=== PATIENT | male | born 1955 | race Caucasian/White ===

== ENCOUNTER 2016-07-21 22:57 | Inpatient (IN) | payer MEDICAID ==
[~2016-07-21] VITALS: Ht 177.8 cm; Wt 123.1 kg
[~2016-07-21 22:57] MED LIST: ACET250T3 PO; ACET325T49 PO; ACET650S15 RC; ALB0.5V IH; AMLO10TA2 PO; ASP325TEC PO; AZIT250T5 PO; BNZT2T PO; BUDE0.5A IH; BUDE10.2 IH; CEFU250T80 PO; CHOL10003 PO; CLON0.5T3 PO; CLOZAPINE PO; CYCL10TA9 PO; DEXL60CA PO; DIPH25CA6 PO; ENOX40DI8 SQ; FINA5TAB6 PO; FLUT1DIS27 IH; FURO40TA4 PO; GUAI600T59 PO; IPRA3AMP IH; LORA10TA7 PO; MAGN400O7 PO; MELA3TAB PO; MELO-195 PO; MELO15TA39 PO; METO-333 PO; METO-354 PO; MUCOMYST 20% IH; PALI234D IM; PANT40TA3 PO; POLY119P5 PO; POTA10TA10 PO; POTA20TA15 PO; PRD10T PO; QUET200T57 PO; ROFL500T3 PO; RT-ALBUINH IH; SENN1TAB6 PO; SIMV20TA3 PO; TAMS0.4C2 PO; TORS20TA3 PO; VITA1CAP PO
[2016-07-22] VITALS (46 sets, daily range): BP systolic 80–173; BP diastolic 53–97
--- OUTSIDE RECORDS SUMMARY | 2016-07-22 00:45 | XMS REPORT | Continuity of Care Document ---
Author Author [facility] Organization [facility] Address Unknown Phone Unavailable Care Team Providers Care Data Entry Representative Name Role Phone SONALI JAIMES MD PCP Insurance Providers Payer Name Policy Number Subscriber Name Relationship [facility] [id number] Rafael Bingham 18 Self / Same As Patient Advance Directives Directive Response Recorded Date/Time Advance Directives No 09/11/15 4:47pm Health Care Power of Endless Track Vehicle Mechanic No 09/11/15 4:47pm Organ Donor No 09/11/15 4:47pm Problems Active Problems Medical Problem Onset Date Status Pneumonia Unknown Acute Medications Current Home Medications Medication Dose Units Route Directions Days/Qty Instructions Start Date Roflumilast 500 Mcg 500 Mcg Oral Bedtime 01/04/12 Finasteride 5 Mg 5 Mg Oral Bedtime 09/11/15 Tamsulosin Hcl 0.4 Mg 0.4 Mg Oral Bedtime 09/11/15 Ipratropium/Albuterol Sulfate (Duoneb) 3 Ml 3 Ml Inhalation Four Times Daily 09/11/15 Clonazepam 0.5 Mg 0.5 Mg Oral Bedtime 09/11/15 Melatonin 3 Mg 3 Mg Oral Bedtime 09/11/15 Meloxicam 15 Mg 15 Mg Oral Bedtime 09/11/15 Pantoprazole Sodium 40 Mg 40 Mg Oral Bedtime 09/11/15 Paliperidone Palmitate 234 Mg/1.5 Ml 234 Mg Intramusc Monthly Sennosides/Docusate Sodium 1 Each 1 Tab Oral Bedtime 09/11/15 Quetiapine Fumarate 200 Mg 200 Mg Oral Twice A Day 09/11/15 Budesonide/Formoterol Fumarate 10.2 Gm 2 Puff Inhalation Twice A Day 09/11/15 Torsemide 20 Mg 20 Mg Oral Daily 09/11/15 Cholecalciferol (Vitamin D3) 1,000 Unit 1,000 Unit Oral Bedtime Potassium Chloride 10 Meq 20 Meq Oral Bedtime TAKES 2 (10 MEQ) TABLETS 09/12/15 Simvastatin 20 Mg 20 Mg Oral Bedtime 09/12/15 Loratadine 10 Mg 10 Mg Oral Bedtime 09/12/15 Diphenhydramine Hcl 25 Mg 25 Mg Oral Bedtime 09/12/15 Amlodipine Besylate 10 Mg 10 Mg Oral Daily 09/12/15 Albuterol Sulfate 8.5 Gm 2 Puff Inhalation Every 6 Hours as needed for Shortness Of Breath 09/12/15 Prednisone 10 Mg 60 Mg Oral Daily 42 Take 6 tabs(60mg)daily, decrease by 1 tab(10mg) every other day. 09/13/15 Past Home Medications Medication Directions Ordered Status [Clozapine] , 800 Mg Oral Daily 01/04/12 Discontinued Simvastatin 20 Mg Tablet, 20 Mg Oral Daily 01/04/12 Discontinued Potassium Chloride 20 Meq Tab.prt.sr, 20 Meq Oral Daily 01/04/12 Discontinued Cyclobenzaprine Hcl (Flexeril) 10 Mg Tablet, 5 Mg Oral Three Times A Day 05/06 Discontinued Meloxicam (Mobic) 15 Mg Tablet, 15 Mg Oral Daily 01/04/12 Discontinued Torsemide 20 Mg Tablet, 20 Mg Oral Daily 01/04/12 Discontinued Loratadine 10 Mg Tablet, 10 Mg Oral Daily 01/04/12 Discontinued Clonazepam 0.5 Mg Tablet, 0.5 Mg Oral Three Times A Day 01/04/12 Discontinued Dexlansoprazole 60 Mg Alessandro., 60 Mg Oral Daily 01/04/12 Discontinued Benztropine Mesylate 2 Mg Tablet, 2 Mg Oral Twice A Day 01/04/12 Discontinued Aspirin 325 Mg Tabec, 325 Mg Oral Daily 01/04/12 Discontinued Salmeterol Xinafoate/Fluticasone 1 Disk Inhp, 1 Puff Inhalation Twice A Day 01/04/12 Discontinued Metoclopramide Hcl 10 Mg Tab, 10 Mg Oral Daily 01/04/12 Discontinued Acetazolamide 250 Mg Tablet, 250 Mg Oral Daily 09/11/15 Discontinued Cefuroxime Axetil 250 Mg Tablet, 250 Mg Oral Twice A Day 09/11/15 Discontinued Metoprolol Tartrate 25 Mg Tablet, 12.5 Mg Oral Twice A Day 09/11/15 Discontinued Polyethylene Glycol 3350 119 Gm Powder, 17 Gm Oral Three Times A Day as needed for Constipation 09/11/15 Discontinued Guaifenesin 600 Mg Tab.er.12h, 600 Mg Oral Twice A Day 09/11/15 Discontinued [Mucomyst 20%] , 1 Vial Inhalation Twice A Day 09/11/15 Discontinued Budesonide 0.5 Mg/2 Ml Ampul.neb, 0.5 Mg Inhalation Twice A Day 09/11/15 Discontinued Vitamin B Complex 1 Each Capsule, 1 Cap Oral Daily 09/11/15 Discontinued Furosemide 40 Mg Tablet, 40 Mg Oral Daily 09/11/15 Discontinued Enoxaparin Sodium 40 Mg/0.4 Ml Syringe, 40 Mg Sub-Q Daily 09/11/15 Discontinued Azithromycin 250 Mg Tablet, 250 Mg Oral As Directed 09/11/15 Discontinued Albuterol Sulfate 2.5 Mg/0.5 Ml Vial.neb, 2.5 Mg Inhalation Every 4HRS as needed for Shortness Of Breath 09/11/15 Discontinued Acetaminophen 325 Mg Tablet, 650 Mg Oral Every 4HRS as needed for Pain Or Fever 09/11/15 Discontinued Acetaminophen 650 Mg Supp.rect, 650 Mg Rectal Every 4HRS as needed for Pain Or Fever 09/11/15 Discontinued Magnesium Hydroxide 400 Mg/5 Ml Oral.susp, 30 Ml Oral Daily as needed for Constipation 09/11/15 Discontinued Torsemide 20 Mg Tablet, 20 Mg Oral Daily 09/12/15 Discontinued Social History Social History Problem Response Recorded Date/Time Recent Foreign Travel No 02/19/2016 9:29am Hospital Discharge Instructions No hospital discharge instructions. Plan of Care Prescriptions See Medication Section Functional Status No functional status results. Allergies, Adverse Reactions, Alerts No known allergies. Immunizations No immunization records. Vital Signs No known vital signs results. Results No known relevant diagnostic tests, laboratory data and/or discharge summary. Procedures No known history of procedures. Encounters Encounter Location Arrival/Admit Date Discharge/Depart Date Attending Provider Discharged Rec[facility]ring [facility] 03/02/16 10:49am 12:00pm MARIO JAMESON MD
[2016-07-22] MEDS ORDERED: PROPOFOL DRIP (ICU) 100 ML IV ONE (01:04)
[2016-07-22] MEDS ORDERED: fentaNYL INJECTION 100 MCG/2 ML AMP ONE (01:05)
[2016-07-22] MEDS ORDERED: NS IV 500 ML 500 ML ONE (01:55)
[2016-07-22] MEDS ORDERED: NS IV 500 ML 500 ML IV SCH (02:00)
[2016-07-22] MEDS: PANTOPRAZOLE 40 MG/10 ML (PROTONIX) VIAL IV SCH ×3 (02:11→20:46)
[2016-07-22] MEDS: inSUlin (REGULAR) HUMAN 1 UNIT/0.01 ML (CHARGE PER UNIT) SC SCH ×5 (04:00→20:00)
[2016-07-22] MEDS: fentaNYL INJECTION 100 MCG/2 ML AMP IV PRN (04:10)
[2016-07-22 04:37] LABS: BASOPHILS % (AUTO) 0 % (0-10); EOSINOPHILS % (AUTO) 0 % (0-10); LYMPHOCYTES # (AUTO) 0.4 X 10^3 (1.0-4.0); LYMPHOCYTES % (AUTO) 4 % (12-44); MEAN CORPUSCULAR HEMOGLOBIN 31 PG (25-34); MEAN CORPUSCULAR HGB CONC 33 G/DL (32-36); MEAN CORPUSCULAR VOLUME 93 FL (80-99); MEAN PLATELET VOLUME 10.5 FL (7.4-10.4); MONOCYTES # (AUTO) 0.2 X 10^3 (0.0-1.0); MONOCYTES % (AUTO) 3 % (0-12); NEUTROPHILS # (AUTO) 7.9 X 10^3 (1.8-7.8); NEUTROPHILS % (AUTO) 93 % (42-75); PLATELET COUNT 194 10^3/uL (130-400); RED BLOOD COUNT 5.35 10^6/uL (4.35-5.85); RED CELL DISTRIBUTION WIDTH 15.3 % (10.0-14.5); WHITE BLOOD COUNT 8.5 10^3/uL (4.3-11.0)
[2016-07-22 04:56] LABS: ANISOCYTOSIS SLIGHT; BAND NEUTROPHILS 1 %; BASOPHILS % (MANUAL) 0 %; EOSINOPHILS % (MANUAL) 0 %; LYMPHOCYTES % (MANUAL) 3 %; NEUTROPHILS % (MANUAL) 92 %; POLYCHROMASIA SLIGHT; REACTIVE LYMPHOCYTES 2 %
[2016-07-22 05:07] LABS: ANION GAP 13 MMOL/L (5-14); BLOOD UREA NITROGEN 13 MG/DL (7-18); BUN/CREATININE RATIO 13; CALCIUM 8.8 MG/DL (8.5-10.1); CARBON DIOXIDE 31 MMOL/L (21-32); CHLORIDE 94 MMOL/L (98-107); CREATININE SERUM 0.97 MG/DL (0.60-1.30); GFR ESTIMATED > 60; GLUCOSE 124 MG/DL (70-105); MAGNESIUM 2.3 MG/DL (1.8-2.4); PHOSPHORUS 5.4 MG/DL (2.3-4.7); POTASSIUM 4.2 MMOL/L (3.6-5.0); SODIUM 138 MMOL/L (135-145)
[2016-07-22 05:09] LABS: ABG HCO3 36 MMOL/L (23-27); ABG OXYGEN SATURATION 96 % (94-100); ABG PO2 86 MMHG (79-93); ABG TCO2 38.5 MMOL/L (21.0-31.0)
[2016-07-22 05:10] LABS: ALLENS TEST YES-POS; PATIENT TEMP 100.2
[2016-07-22 05:13] LABS: ABG PCO2 75 MMHG (35-45); ABG PH 7.31 (7.37-7.43)
[2016-07-22] MEDS: MAGNESIUM 1 GM/100 ML IVPB 100 ML IV SCH (05:33)
[2016-07-22] MEDS: POTASSIUM CL 10MEQ/50ML IVPB 50 ML IV SCH (05:33)
[2016-07-22] MEDS: KCL 20 MEQ TAB (K-DUR) PO SCH (05:33)
[2016-07-22] MEDS: CATHETER FLUSH 10 ML SYR IV SCH ×3 (05:41→22:26)
--- NOTE | 2016-07-22 06:14 | Pulmonary Progress Note ---
Exam Exam Vital Signs Date Time Temp Pulse Resp B/P Pulse Ox O2 Delivery O2 Flow Rate FiO2 07/22/16 05:42 115/66 07/22/16 05:22 82 25 93 100 07/22/16 03:45 81 17 102/59 89 Mechanical Ventilator 100.00 07/22/16 03:30 79 13 95/56 89 Mechanical Ventilator 100.00 07/22/16 03:15 79 17 95/58 89 Mechanical Ventilator 100.00 07/22/16 03:00 81 19 97/56 89 Mechanical Ventilator 100.00 07/22/16 02:45 86 14 102/59 89 Mechanical Ventilator 100.00 07/22/16 02:30 85 9 100/53 89 Mechanical Ventilator 100.00 07/22/16 02:15 84 18 105/64 88 Mechanical Ventilator 100.00 07/22/16 02:15 82 18 88 100 07/22/16 02:00 89 29 122/85 87 Mechanical Ventilator 100.00 07/22/16 01:45 79 17 80/55 93 Mechanical Ventilator 100.00 07/22/16 01:30 87 18 86/55 89 Mechanical Ventilator 100.00 07/22/16 01:19 134/75 07/22/16 01:15 103 24 134/75 88 Mechanical Ventilator 100.00 07/22/16 01:10 104 15 89 100 07/22/16 01:00 98 07/22/16 01:00 98 13 139/77 96 Mechanical Ventilator 100.00 07/22/16 00:47 108 10 173/97 90 Mechanical Ventilator 100.00 07/22/16 00:47 108 07/22/16 00:45 89 100.00 General Appearance: WD/WN Moderate Distress Other (sedated on ventilator ) HEENT: PERRL/EOMI TMs Normal Normal ENT Inspection Pharynx Normal Neck: Full Range of Motion Normal Inspection Non Tender Respiratory: No Accessory Muscle Use No Respiratory Distress Decreased Breath Sounds Cardiovascular: Regular Rate, Rhythm Other (edema bilaterally) Gastrointestinal: normal bowel sounds non tender soft no organomegaly Neurologic/Psychiatric: Other (sedated on vent) Skin: Normal Color Lymphatic: No Adenopathy Results Lab Laboratory Tests 07/22/16 04:00 Assessment/Plan Assessment/Plan Acute on chronic respiratory failure requiring ventilator -Increase MV and PEEP to 12 -repeat ABG in 45min -SVNs duoneb and pulmicort bilateral infiltrates probably aspiration pneumonia vs pulmonary edema -Check BNP -Menjivar cultures -start Zosyn Severe COPD/emphysema -SVNs -solumedrol tobacco dependance -education Obesity with probable JEN PT's prognosis is guarded at this time Clinical Quality Measures DVT/VTE Risk/Contraindication: Risk Factor Score Per Nursin RFS Level Per Nursing on Admit: 4+=Very High AMAIRANI LOMBARDO DO Jul 22, 2016 06:14
[2016-07-22] MEDS ORDERED: PIPERACILLIN/TAZO 4.5 GM VIAL (ZOSYN) IV ONE ×3 (06:33→15:07)
[2016-07-22] MEDS ORDERED: NS (IVPB) 100 ML ONE ×2 (06:34→15:08)
--- NOTE | 2016-07-22 06:36 | Pulmonary Consultation ---
History of Present Illness History of Present Illness Date of Consultation 07/22/16 06:34 Date of Admission History of Present Illness 60 yo with hx of severe COPD and current tobacco use and multiple hospitalizations presented secondary to worsening SOB. He was intubated in ED and transferred to ICU for close monitoring. Unable to obtain ROS secondary to MS. I am consulted for pulmonary management. Allergies and Home Medications Allergies Coded Allergies: No Known Drug Allergies (Unverified , 09/15/10) Home Medications Albuterol Sulfate 8.5 Gm Hfa.aer.ad, 2 PUFF IH Q6H PRN for SHORTNESS OF BREATH, (Reported) Amlodipine Besylate 10 Mg Tablet, 10 MG PO DAILY, (Reported) Cholecalciferol (Vitamin D3) 1,000 Unit Tablet, 1,000 UNIT PO HS, (Reported) Clonazepam 0.5 Mg Tablet, 0.5 MG PO BID PRN for ANXIETY, #30 Prescribed by: SILVIO WALSH on 08/04/16 09 Diphenhydramine HCl 25 Mg Capsule, 25 MG PO HS, (Reported) Finasteride 5 Mg Tablet, 5 MG PO HS, (Reported) Fluticasone Propionate 16 Gm [place].susp, 1 SPRAY NS BID for 14 Days, (Reported) FILLED 07/20/16 #16ML FOR A 14 DAY THERAPY Ipratropium/Albuterol Sulfate 3 Ml Ampul.neb, 3 ML INH RTQ2H PRN for SOA for 30 Days Prescribed by: SILVIO WALSH on 08/04/16 09 Lorazepam 2 Mg/1 Ml Oral.conc, 1 MG PO Q3HR, #30 Prescribed by: SILVIO WALSH on 08/04/1647 Melatonin 3 Mg Tablet, 3 MG PO HS, (Reported) Meloxicam 15 Mg Tablet, 15 MG PO HS, (Reported) Morphine Sulfate 100 Mg/5 Ml Solution, 5 MG PO Q2H PRN for PAIN, #30 Prescribed by: SILVIO WALSH on 08/04/16 09 Paliperidone Palmitate 234 Mg/1.5 Ml Syringe, 234 MG IM MONTHLY, (Reported) Pantoprazole Sodium 40 Mg Tablet.dr, 40 MG PO HS, (Reported) Potassium Chloride 10 Meq Tablet.er, 20 MEQ PO HS, (Reported) TAKES 2 (10 MEQ) TABLETS Prednisone 20 Mg Tab, 20 MG PO DAILY for 30 Days Prescribed by: SILVIO WALSH on 08/04/16 0947 Quetiapine Fumarate 200 Mg Tablet, 200 MG PO BID@1200,2100, (Reported) Roflumilast 500 Mcg Tablet, 500 MCG PO HS, (Reported) Sennosides/Docusate Sodium 1 Each Tablet, 1 TAB PO BID, (Reported) Simvastatin 20 Mg Tablet, 20 MG PO HS, (Reported) Tamsulosin HCl 0.4 Mg Cap.er.24h, 0.4 MG PO HS, (Reported) Torsemide 20 Mg Tablet, 20 MG PO DAILY, (Reported) Past Seklemj-Vaxxqs-Dzokgf Hx Patient Social History Smoking Status: Current Everyday Smoker Type Used: Cigarettes Recent Foreign Travel: No Contact w/Someone Who Travel: No Recent Infectious Disease Expo: No Immunizations Up To Date Date of Pneumonia Vaccine: Mar 14, 2009 Respiratory Hx Respiratory Disorders: Yes (COPD) Respiratory Disorders: COPD Cardiovascular Hx Cardiac Disorders: Yes Cardiac Disorders: High Cholesterol, Hypertension Neurological Hx Neurological Disorders: Yes Neurological Disorders: Developmental Disorder Genitourinary Hx Genitourinary Disorders: Yes Genitourinary Disorders: Benign Prostatic Hyperpl Gastrointestinal Hx Gastrointestinal Disorders: No Musculoskeletal Hx Musculoskeletal Disorders: No Endocrine Hx Endocrine Disorders: No Cancer Hx Cancer: No Psychosocial Hx Psychiatric Problems: Yes (MILD MR) Behavioral Health Disorders: Anxiety, Bipolar, Schizophrenia, Violent Behavior Integumentary HX Skin/Integumentary Disorder: No Exam Exam Vital Signs Date Time Temp Pulse Resp B/P Pulse Ox O2 Delivery O2 Flow Rate FiO2 07/22/16 05:42 115/66 07/22/16 05:22 82 25 93 100 07/22/16 03:45 81 17 102/59 89 Mechanical Ventilator 100.00 07/22/16 03:30 79 13 95/56 89 Mechanical Ventilator 100.00 07/22/16 03:15 79 17 95/58 89 Mechanical Ventilator 100.00 07/22/16 03:00 81 19 97/56 89 Mechanical Ventilator 100.00 07/22/16 02:45 86 14 102/59 89 Mechanical Ventilator 100.00 07/22/16 02:30 85 9 100/53 89 Mechanical Ventilator 100.00 07/22/16 02:15 84 18 105/64 88 Mechanical Ventilator 100.00 07/22/16 02:15 82 18 88 100 07/22/16 02:00 89 29 122/85 87 Mechanical Ventilator 100.00 07/22/16 01:45 79 17 80/55 93 Mechanical Ventilator 100.00 07/22/16 01:30 87 18 86/55 89 Mechanical Ventilator 100.00 07/22/16 01:19 134/75 07/22/16 01:15 103 24 134/75 88 Mechanical Ventilator 100.00 07/22/16 01:10 104 15 89 100 07/22/16 01:00 98 07/22/16 01:00 98 13 139/77 96 Mechanical Ventilator 100.00 07/22/16 00:47 108 10 173/97 90 Mechanical Ventilator 100.00 07/22/16 00:47 108 07/22/16 00:45 89 100.00 General Appearance: Moderate Distress HEENT: Normal ENT Inspection, Pharynx Normal Neck: Full Range of Motion, Normal Inspection Respiratory: No Accessory Muscle Use, No Respiratory Distress, Decreased Breath Sounds Cardiovascular: Regular Rate, Rhythm, No Edema, No Gallop Gastrointestinal: normal bowel sounds, non tender Extremity: Normal Capillary Refill Skin: Normal Color Results Lab Laboratory Tests 07/22/16 04:00 Assessment/Plan Assessment/Plan Acute on chronic respiratory failure requiring ventilator with ARDS vs CHF -Increase MV and PEEP to 12 -repeat ABG in 45min -SVNs duoneb and pulmicort bilateral infiltrates probably aspiration pneumonia vs pulmonary edema -Check BNP -Menjivar cultures -start Zosyn Severe COPD/emphysema -SVNs -solumedrol tobacco dependance -education Obesity with probable JEN PT's prognosis is guarded at this time Clinical Quality Measures DVT/VTE Risk/Contraindication: Risk Factor Score Per Nursin RFS Level Per Nursing on Admit: 4+=Very High AMAIRANI LOMBARDO DO Jul 22, 2016 06:36
[2016-07-22] MEDS: PIPERACILLIN SODIUM/TAZOBACTAM 4.5 GM in NS (IVPB) 100 ML IV SCH ×3 (06:45→22:27)
[2016-07-22] MEDS ORDERED: FLU TRIvalent (5 YOA+) 2016-17 (AFLURIA) 0.5 ML IM ONE (07:00)
[2016-07-22 07:01] LABS: ABG BASE EXCESS 6.9 MMOL/L (-2.5-2.5); ABG HCO3 35 MMOL/L (23-27); ABG OXYGEN SATURATION 96 % (94-100); ABG PCO2 65 MMHG (35-45); ABG PH 7.35 (7.37-7.43); ABG PO2 83 MMHG (79-93); ABG TCO2 36.6 MMOL/L (21.0-31.0); ALLENS TEST YES-POS; PATIENT TEMP 100.9
--- NOTE | 2016-07-22 08:14 | Diagnostic Imaging Report ---
INDICATION: Respiratory failure Frontal chest obtained at 2:22 hours a.m. and compared with 09/12/15. There is a new ET tube in place tip overlying mid trachea. There is an NG tube seen with tip not visualized. There is worsening bibasilar infiltrate compared to the previous study. There is no pneumothorax or gross pleural fluid. There is cardiomegaly and central venous congestion. IMPRESSION: Worsening bibasilar infiltrates with cardiomegaly and central venous congestion. Life-support lines as above. Dictated by: Dictated on workstation # [id number]
[2016-07-22] MEDS: CHLORHEXIDINE 0.12% SOLN 15 ML (PERIDEX) UDC PO SCH ×2 (09:06→20:46)
[2016-07-22] MEDS: CATHETER FLUSH 10 ML SYR IV PRN (09:07)
[2016-07-22] MEDS ORDERED: FLUT16SP22 NS (10:11)
[2016-07-22] MEDS ORDERED: CEFD300C3 PO (10:11)
--- NOTE | 2016-07-22 10:45 | History & Physical-Hospitalist ---
HPI History of Present Illness: HPI/Chief Complaint CC: Respiratory failure HPI: Dr. Haddad at [facility] called be at 2300 last night to report need for transfer to higher level of care. ABG showed 7.29/79/59 and failed BiPAP so I gave orders for intubation prior to transfer. Pt on Zosyn, empirically, and maintained on vent at 580/25/15/60%. 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 Pt was seen by Dr. Hernandez. Pt is on Zosyn and steroids. Patient Interview: Physical exam stable Scribed by Harshal Shah under the direct supervision of Dr. Walsh. Source: RN/MD Exam Limitations: clinical condition Date Seen 07/22/16 Attending Physician Amaya Walsh Wen-Chou MD Referring Physician Date of Admission Jul 22, 2016 at 00:37 Home Medications & Allergies Home Medications Reviewed patient Home Medication Reconciliation Form Allergies Coded Allergies: No Known Drug Allergies (Unverified , 09/15/10) Past [place]-Hqednx-Ezhzrh Hx Patient Social History Marrital Status: single Employed/Student: unemployed Smoking Status: Current Everyday Smoker Type Used: Cigarettes Recent Foreign Travel: No Contact w/other who traveled: No Recent Infectious Disease Expo: No Immunizations Up To Date Date of Pneumonia Vaccine: Mar 14, 2009 Surgeries HX Surgeries: No Respiratory Hx Respiratory Disorders: Yes (COPD) Respiratory Disorders: Pneumonia Cardiovascular Hx Cardiovascular Disorders: Yes Cardiac Disorders: High Cholesterol, Hypertension Neurological Hx Neurological Disorders: Yes Neurological Disorders: Developmental Disorder Genitourinary Hx Genitourinary Disorders: Yes Genitourinary Disorders: Benign Prostatic Hyperpl Gastrointestinal Hx Gastrointestinal Disorders: No Musculoskeletal Hx Musculoskeletal Disorders: No Endocrine Hx Endocrine Disorders: No Cancer Hx Cancer: No Psychosocial Hx Psychiatric Problems: Yes (MILD MR) Behavioral Health Disorders: Anxiety, Bipolar, Schizophrenia, Violent Behavior Integumentary HX Skin/Integumentary Disorder: No Review of Systems ROS-Unable to Obtain: patient on ventilator unable to obtain Constitutional: see HPI Physical Exam Physical Exam Vital Signs Vital Sign - Last 12Hours 07/22/16 07/22/16 07/22/16 00:45 00:47 01:10 Pulse 108 Resp 10 B/P 173/97 Pulse Ox 89 O2 Delivery Mechanical Ventilator O2 Flow Rate 100.00 FiO2 100 Capillary Refill : General Appearance: No Apparent Distress Chronically ill Obese Other (on ventilator) HEENT: PERRL/EOMI Neck: Normal Inspection Respiratory: Crackles Wheezing Cardiovascular: Regular Rate, Rhythm No Edema No Gallop No JVD No Murmur Gastrointestinal: Normal Bowel Sounds Extremity: Swelling Neurologic/Psychiatric: Other (sedated on ventilator) Skin: Normal Color Warm/Dry Lymphatic: No Adenopathy Results Results/Procedures Lab Laboratory Tests 07/22/16 04:00 Assessment/Plan [facility]mission [facility] Severe COPD with continued smoking 4ppd H/O pneumonia 09/27 H/O Volume overload 09/27 Long-standing mental illness: Schizophrenia Hypertension Hyperlipidemia Pleural effusion h/o 09/27 Assessment and Plan Plan: Maintain on Zosyn and vent. Prognosis poor so likely will either need [place] or palliative care if unable to extubate Needs jail at discharge at the very least Clinical Quality Measures DVT/VTE Risk/Contraindication: Risk Factor Score Per Nursin RFS Level Per Nursing on Admit: 4+=Very High AMAYA WALSH DO Jul 22, 2016 10:45
[2016-07-22] MEDS: RT-ALBUTEROL/IPRATROPIUM 3 ML (DUONEB) VIAL INH SCH ×4 (10:52→21:52)
[2016-07-22] MEDS: methylPREDNISolone 40 MG/ML (Solu-MEDROL) VIAL IV SCH ×2 (13:21→17:40)
[2016-07-22] MEDS: ACETAMINOPHEN 650 MG SUPP (TYLENOL) PR PRN (13:42)
[2016-07-22] MEDS: RT-BUDESONIDE NEBS 0.5 MG/2ML (PULMICORT) AMP INH SCH ×2 (14:50→19:53)
[2016-07-22] MEDS ORDERED: VANCOMYCIN INJECTION 0.1 MG in NS (IVPB) 250 ML IV SCH (15:45)
[2016-07-22] MEDS ORDERED: VANCOMYCIN 2000 MG/NS 500 ML IVPB IV NR ×2 (16:30)
[2016-07-22 17:18] LABS: BILIRUBIN,URINE NEGATIVE (NEGATIVE); KETONES,URINE NEGATIVE (NEGATIVE); LEUKOCYTE ESTERASE ,URINE NEGATIVE (NEGATIVE); NITRITE,URINE NEGATIVE (NEGATIVE); PH,URINE 6 (5-9); PROTEIN,URINE 1+ (NEGATIVE); UROBILINOGEN,URINE NORMAL (NORMAL)
[2016-07-22 17:30] LABS: WBC,URINE RARE /HPF
[2016-07-22] MEDS: IBUPROFEN SUSP 100MG/5ML (MOTRIN) UDC PO PRN (18:02)
--- NOTE | 2016-07-22 20:34 | Diagnostic Imaging Report ---
INDICATION: Check tube placement. FINDINGS: A portable view of the chest is compared to an exam from the morning. An endotracheal tube is in good position. An enteric tube transverses the radiograph. Bilateral pulmonary infiltrates, mainly in the lower lobes, have improved. Heart size appears a little smaller. Central pulmonary vessels are prominent but decreased, possible pulmonary hypertension. IMPRESSION: The endotracheal tube is in good position. Pulmonary infiltrates are improving. There is borderline cardiomegaly with probable pulmonary hypertension. Dictated by: Dictated on workstation # [id number]
[2016-07-23] VITALS (33 sets, daily range): BP systolic 111–152; BP diastolic 0–90
[2016-07-23] MEDS: inSUlin (REGULAR) HUMAN 1 UNIT/0.01 ML (CHARGE PER UNIT) SC SCH ×6 (01:12→21:03)
[2016-07-23] MEDS: methylPREDNISolone 40 MG/ML (Solu-MEDROL) VIAL IV SCH ×4 (01:21→17:09)
[2016-07-23] MEDS: RT-ALBUTEROL/IPRATROPIUM 3 ML (DUONEB) VIAL INH SCH ×6 (02:03→22:00)
[2016-07-23] MEDS: IBUPROFEN SUSP 100MG/5ML (MOTRIN) UDC PO PRN ×2 (02:47→12:14)
[2016-07-23 04:55] LABS: BASOPHILS % (AUTO) 0 % (0-10); EOSINOPHILS % (AUTO) 0 % (0-10); LYMPHOCYTES # (AUTO) 0.4 X 10^3 (1.0-4.0); LYMPHOCYTES % (AUTO) 5 % (12-44); MEAN CORPUSCULAR HEMOGLOBIN 31 PG (25-34); MEAN CORPUSCULAR HGB CONC 32 G/DL (32-36); MEAN CORPUSCULAR VOLUME 95 FL (80-99); MEAN PLATELET VOLUME 10.8 FL (7.4-10.4); MONOCYTES # (AUTO) 0.6 X 10^3 (0.0-1.0); MONOCYTES % (AUTO) 8 % (0-12); NEUTROPHILS # (AUTO) 6.2 X 10^3 (1.8-7.8); NEUTROPHILS % (AUTO) 87 % (42-75); PLATELET COUNT 199 10^3/uL (130-400); RED BLOOD COUNT 5.35 10^6/uL (4.35-5.85); RED CELL DISTRIBUTION WIDTH 15.5 % (10.0-14.5); WHITE BLOOD COUNT 7.2 10^3/uL (4.3-11.0)
[2016-07-23 05:00] LABS: ABG BASE EXCESS 8.4 MMOL/L (-2.5-2.5); ABG HCO3 38 MMOL/L (23-27); ABG OXYGEN SATURATION 98 % (94-100); ABG PO2 129 MMHG (79-93); ABG TCO2 39.6 MMOL/L (21.0-31.0)
[2016-07-23 05:08] LABS: ALLENS TEST YES-POS; PATIENT TEMP 99.8
[2016-07-23] MEDS: CATHETER FLUSH 10 ML SYR IV SCH ×3 (05:09→22:04)
[2016-07-23] MEDS: VANCOMYCIN 1,750 MG/NS 500 ML IVPB IV SCH ×4 (05:09→17:10)
[2016-07-23 05:10] LABS: ABG PH 7.34 (7.37-7.43)
[2016-07-23 05:11] LABS: ABG PCO2 72 MMHG (35-45)
--- NOTE | 2016-07-23 05:40 | Pulmonary Progress Note ---
Subjective Subjective/Events-last exam Pt resting/sedated on ventilator Exam Exam Vital Signs Date Time Temp Pulse Resp B/P Pulse Ox O2 Delivery O2 Flow Rate FiO2 07/23/16 04:13 60 07/23/16 04:05 71 25 98 60 07/23/16 04:00 72 21 127/73 98 Mechanical Ventilator 60.00 07/23/16 03:20 100.6 07/23/16 03:00 73 15 133/77 98 Mechanical Ventilator 60.00 07/23/16 02:47 101.2 07/23/16 02:04 92 25 97 60 07/23/16 02:00 73 25 114/70 98 Mechanical Ventilator 60.00 07/23/16 01:33 73 114/70 07/23/16 01:00 75 25 111/71 98 Mechanical Ventilator 60.00 07/23/16 01:00 75 07/23/16 00:12 75 25 98 60 07/23/16 00:00 99.8 77 25 111/68 98 Mechanical Ventilator 60.00 07/23/16 00:00 60 07/22/16 23:00 72 24 111/68 98 Mechanical Ventilator 60.00 07/22/16 22:00 75 10 124/72 97 Mechanical Ventilator 60.00 07/22/16 21:52 75 25 97 60 07/22/16 21:00 77 18 126/75 97 Mechanical Ventilator 60.00 07/22/16 20:38 120/70 07/22/16 20:00 99.3 78 19 116/71 97 Mechanical Ventilator 60.00 07/22/16 20:00 60 07/22/16 19:53 76 25 97 60 07/22/16 19:00 82 25 118/71 96 Mechanical Ventilator 60.00 07/22/16 19:00 80 07/22/16 18:19 87 25 96 60 07/22/16 18:02 100.5 07/22/16 18:00 82 25 131/79 96 Mechanical Ventilator 60.00 07/22/16 17:00 87 25 128/94 96 Mechanical Ventilator 60.00 07/22/16 16:13 85 25 96 60 07/22/16 16:00 60 07/22/16 16:00 85 25 119/72 96 Mechanical Ventilator 60.00 07/22/16 15:41 120/74 07/22/16 15:00 85 25 125/73 98 Mechanical Ventilator 60.00 07/22/16 14:52 85 25 99 60 07/22/16 14:50 85 25 99 60 07/22/16 14:12 101.6 07/22/16 14:00 84 25 123/76 99 Mechanical Ventilator 60.00 07/22/16 13:42 101.2 07/22/16 13:24 101.2 07/22/16 13:00 91 25 120/74 98 Mechanical Ventilator 60.00 07/22/16 13:00 90 07/22/16 12:26 88 25 97 60 07/22/16 12:00 60 07/22/16 12:00 92 25 110/71 97 Mechanical Ventilator 60.00 07/22/16 11:00 84 25 106/67 96 Mechanical Ventilator 60.00 07/22/16 10:52 84 25 95 60 07/22/16 10:36 108/70 07/22/16 10:00 80 25 108/70 95 Mechanical Ventilator 60.00 07/22/16 09:23 84 34 94 60 07/22/16 09:00 100.7 82 28 110/84 93 Mechanical Ventilator 60.00 07/22/16 08:00 80 07/22/16 08:00 83 25 112/71 93 Mechanical Ventilator 60.00 07/22/16 07:09 81 25 93 60 07/22/16 07:00 80 07/22/16 07:00 80 25 114/74 94 Mechanical Ventilator 80.00 07/22/16 06:18 80 07/22/16 06:00 78 25 104/68 94 Mechanical Ventilator 100.00 07/22/16 05:42 115/66 I & O 07/23/16 07:00 Intake Total 1085 ml Output Total 2330 ml Balance -1245 ml General Appearance: No Apparent Distress Chronically ill Obese Other (on ventilator) HEENT: PERRL/EOMI Neck: Normal Inspection Respiratory: Crackles Decreased Breath Sounds Wheezing Cardiovascular: Regular Rate, Rhythm No Edema No Gallop No JVD No Murmur Extremity: Swelling Neurologic/Psychiatric: Other (sedated on ventilator) Skin: Normal Color Warm/Dry Lymphatic: No Adenopathy Results Lab Laboratory Tests 07/22/16 04:00 07/23/16 03:41 Assessment/Plan Assessment/Plan Acute on chronic respiratory failure requiring ventilator with ARDS vs CHF -Decrease PEEP to 10 from 15 -SVNs duoneb and pulmicort bilateral infiltrates probably aspiration pneumonia -Menjivar cultures pending - Zosyn and vancomycin Severe COPD/emphysema -SVNs -solumedrol tobacco dependance -education Obesity with probable JEN Clinical Quality Measures DVT/VTE Risk/Contraindication: Risk Factor Score Per Nursin RFS Level Per Nursing on Admit: 4+=Very High AMAIRANI LOMBARDO DO Jul 23, 2016 05:39
[2016-07-23 05:42] LABS: ANION GAP 13 MMOL/L (5-14); BLOOD UREA NITROGEN 19 MG/DL (7-18); BUN/CREATININE RATIO 22; CALCIUM 9.2 MG/DL (8.5-10.1); CARBON DIOXIDE 31 MMOL/L (21-32); CHLORIDE 95 MMOL/L (98-107); CREATININE SERUM 0.88 MG/DL (0.60-1.30); GFR ESTIMATED > 60; GLUCOSE 135 MG/DL (70-105); MAGNESIUM 2.9 MG/DL (1.8-2.4); PHOSPHORUS 4.1 MG/DL (2.3-4.7); SODIUM 139 MMOL/L (135-145)
[2016-07-23 05:44] LABS: POTASSIUM 4.8 MMOL/L (3.6-5.0)
[2016-07-23] MEDS: MAGNESIUM 1 GM/100 ML IVPB 100 ML IV SCH (05:50)
[2016-07-23] MEDS: POTASSIUM CL 10MEQ/50ML IVPB 50 ML IV SCH (05:50)
[2016-07-23] MEDS: KCL 20 MEQ TAB (K-DUR) PO SCH (05:50)
[2016-07-23] MEDS: PIPERACILLIN SODIUM/TAZOBACTAM 4.5 GM in NS (IVPB) 100 ML IV SCH ×3 (06:01→23:08)
[2016-07-23] MEDS: ACETAMINOPHEN 650 MG SUPP (TYLENOL) PR PRN (06:30)
--- NOTE | 2016-07-23 07:56 | Diagnostic Imaging Report ---
INDICATION: Respiratory failure. 0529 hours FINDINGS: Since the exam of one day earlier, endotracheal tube and nasogastric tube remain in place without evidence of significant change. The lower aspect of the nasogastric tube is not visualized. Bilateral air trapping and prominence of interstitial markings have not changed. There is no evidence of pneumothorax or new infiltrate. Calcifications in the left lung are likely related to previous granulomatous exposure. IMPRESSION: Findings are consistent with COPD. Overall, there has been no significant change when compared to previous exam. Dictated by: Dictated on workstation # [id number]
[2016-07-23] MEDS: RT-BUDESONIDE NEBS 0.5 MG/2ML (PULMICORT) AMP INH SCH ×2 (08:29→20:16)
[2016-07-23] MEDS: PANTOPRAZOLE 40 MG/10 ML (PROTONIX) VIAL IV SCH ×2 (08:42→21:18)
[2016-07-23] MEDS: CATHETER FLUSH 10 ML SYR IV PRN (08:43)
[2016-07-23] MEDS: CHLORHEXIDINE 0.12% SOLN 15 ML (PERIDEX) UDC PO SCH ×2 (08:43→21:22)
--- NOTE | 2016-07-23 09:18 | Physical Therapy Evaluation ---
PT Evaluation-General Medical Diagnosis Admission Date Jul 22, 2016 at 00:37 Medical Diagnosis: resp. failure Onset Date: Jul 22, 2016 Therapy Diagnosis Therapy Diagnosis: generalized weakness/debility Height/Weight Height (Feet): 5 Height (Inches): 10.00 Weight (Pounds): 272 Weight (Ounces): 6.4 Precautions Precautions/Isolations: Fall Prevention, Standard Precautions Referral Physician: Mary Reason for Referral: Evaluation/Treatment Medical History Pertinent Medical History: COPD, Smoking Additional Medical History Schizophrenia, Bipolar, Violent Behavior Current History currently on vent Reviewed History: Yes Social History Home: Apartment Current Living Status: Alone Entry Into Home: Level Entry Prior/Core FIM Prior Level of Function Functional [place] Measure 0=Not Assessed/NA 4=Minimal Assistance 1=Total Assistance 5=Supervision or Setup 2=Maximal Assistance 6=Modified [place] 3=Moderate Assistance 7=Complete [place] Bed Mobility: 7 Transfers (B,C,W/C) (FIM): 7 Gait: 7 PT Evaluation-Current Subjective Patient is able to shake and nod in response to PT questions. Pain Numeric Pain Scale: 0-No Pain Location: No Pain Reported Objective Patient Orientation: Person Problem Solving: Poor Attachments: SCD's, Oxygen, Nguyễn Catheter, IV ventilator ROM/Strength ROM Lower Extremities bilateral LE WFL Strenght Lower Extremities bilateral LE WFL with AAROM; no formal testing due to current condition Integumentary/Posture Integumentary refer to nursing notes Bladder Incontinence: Nguyễn Cath Posture NT Neuromuscular (Tone, Coordination, Reflexes) diminished due to sedation for vent. Sensory Vision: Unable to Assess Hearing: Functional Sensation Right Lower Extremit: Impaired Sensation Left Lower Extremity: Impaired Transfers Functional [place] Measure 0=Not Assessed/NA 4=Minimal Assistance 1=Total Assistance 5=Supervision or Setup 2=Maximal Assistance 6=Modified [place] 3=Moderate Assistance 7=Complete [place] Transfers (B, C, W/C) (FIM): 3 Scootin Rollin Patient assisted with repositioning to side lying left with pillows behind back and between bilateral LE's Assessment/Needs 60 y.o. male, currently on ventilator secondary to respiratory failure, will benefit from ROM and to increase activity when patient's medical condition improves. 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 PT [facility] Goals Time Frame: Jul 30, 2016 Transfers (B,C,W/C) (FIM): 4 Gait (FIM): 1 Gait distance (FIM): 1=up to 49 ft Distance: 5' Gait Level of Assist: 4 Gait Assistive Device: FWW PT Plan Problem List Problem List: Activity Tolerance, Functional Strength, Safety, Other ( currently on ventilator) Treatment/Plan Treatment Plan: Continue Plan of Care Treatment Plan: Bed Mobility, Education, Functional Activity Ty, Functional Strength, Gait, Safety, Therapeutic Exercise, Transfers Treatment Duration: Jul 30, 2016 # of days/week 5 Visits Per Week: 5 Time/GCodes Time In: 836 Time Out: 846 Total Billed Treatment Time: 10 Total Billed Treatment 1 visit EVLowC 10 min LES PYLE PT Jul 23, 2016 09:18
--- NOTE | 2016-07-23 11:37 | Progress Note-Hospitalist ---
Progress Note HPI/CC on Admission CC: Respiratory failure HPI: Dr. Haddad at [facility] called be at 2300 last night to report need for transfer to higher level of care. ABG showed 7.29/79/59 and failed BiPAP so I gave orders for intubation prior to transfer. Pt on Zosyn, empirically, and maintained on vent at 580/25/15/60%. Chart Review: No fever Vitals stable WBC 8.5 Hgb 16.3 Repeat ABG this AM 7.35/65/83 CMP normal BNP 72 double end trimmer: Pt remains intubated. Pt was seen by Dr. Hernandez. Pt is on Zosyn and steroids. Patient Interview: Physical exam stable Scribed by Harshal Shah under the direct supervision of Dr. Walsh. Progress Notes/Assess & Plan Date Seen 07/23/16 Admission Dx/Process Assessment: [facility] Day # 1 Severe COPD with continued smoking 4ppd H/O pneumonia 09/27 H/O Volume overload 09/27 Long-standing mental illness: Schizophrenia Hypertension Hyperlipidemia Pleural effusion h/o 09/27 Diagonsis/Assessment & Plan Chart Review: CXR reveals COPD changes Fever continues WBC 7.2 ABG 7.34/72/129 double end trimmer: Pt is still intubated. Urine output is stable. Pt was started on Vanc last night. Pt also on Zosyn. Patient Interview: Pt sleeping during visit. Physical exam stable. No fever, vital signs stable, on vent, sedated on Diprivan Regular rate and rhythm, clear to auscultation bilaterally but coarseness on vent Assessment: [facility] Day # 2 Severe COPD with continued smoking 4ppd H/O pneumonia 09/27 H/O Volume overload 09/27 Long-standing mental illness: Schizophrenia Hypertension Hyperlipidemia Pleural effusion h/o 09/27 Plan: will pursue DC options since [facility] will not accept pt.due to insurance coverage issues Maintain on antibiotics and vent. Prognosis poor so will pursue DC options since [facility] will not accept pt. Needs half-way at discharge at the very least Scribed by Harshal Shah under the direct supervision of Dr. Walsh. SILVIO WALSH DO Jul 23, 2016 11:37
--- NOTE | 2016-07-23 12:02 | Occ Therapy Progress Note ---
Therapy Progress Note Order received. Pt. on vent. Spoke with nursing. Will hold therapies until off of vent. Will check back later. 1200 no charge TIANA DANIEL OT Jul 23, 2016 12:02
[2016-07-23] MEDS ORDERED: PIPERACILLIN/TAZO 4.5 GM VIAL (ZOSYN) IV ONE (14:10)
[2016-07-23] MEDS ORDERED: NS (IVPB) 100 ML ONE (14:10)
[2016-07-23] MEDS: fentaNYL INJECTION 100 MCG/2 ML AMP IV PRN (21:17)
[2016-07-24] VITALS (25 sets, daily range): BP systolic 108–171; BP diastolic 65–105
[2016-07-24] MEDS: inSUlin (REGULAR) HUMAN 1 UNIT/0.01 ML (CHARGE PER UNIT) SC SCH ×4 (01:11→12:00)
[2016-07-24] MEDS: methylPREDNISolone 40 MG/ML (Solu-MEDROL) VIAL IV SCH ×4 (01:12→18:07)
[2016-07-24] MEDS: fentaNYL INJECTION 100 MCG/2 ML AMP IV PRN ×3 (01:28→04:44)
[2016-07-24] MEDS: RT-ALBUTEROL/IPRATROPIUM 3 ML (DUONEB) VIAL INH SCH ×7 (02:05→21:25)
[2016-07-24] MEDS ORDERED: TROUGH ORDER-PHARMACY XX NR (04:00)
[2016-07-24 04:03] LABS: ABG BASE EXCESS 8.1 MMOL/L (-2.5-2.5); ABG HCO3 36 MMOL/L (23-27); ABG OXYGEN SATURATION 94 % (94-100); ABG PCO2 64 MMHG (35-45); ABG PH 7.37 (7.37-7.43); ABG PO2 69 MMHG (79-93); ABG TCO2 37.9 MMOL/L (21.0-31.0)
[2016-07-24] MEDS: KCL 20 MEQ TAB (K-DUR) PO SCH (04:03)
[2016-07-24 04:07] LABS: ALLENS TEST YES-POS; PATIENT TEMP 99.5
[2016-07-24 05:35] LABS: BASOPHILS % (AUTO) 0 % (0-10); EOSINOPHILS % (AUTO) 0 % (0-10); LYMPHOCYTES # (AUTO) 0.3 X 10^3 (1.0-4.0); LYMPHOCYTES % (AUTO) 6 % (12-44); MEAN CORPUSCULAR HEMOGLOBIN 31 PG (25-34); MEAN CORPUSCULAR HGB CONC 32 G/DL (32-36); MEAN CORPUSCULAR VOLUME 95 FL (80-99); MONOCYTES # (AUTO) 0.8 X 10^3 (0.0-1.0); MONOCYTES % (AUTO) 15 % (0-12); NEUTROPHILS # (AUTO) 4.5 X 10^3 (1.8-7.8); NEUTROPHILS % (AUTO) 79 % (42-75); PLATELET COUNT 184 10^3/uL (130-400); RED BLOOD COUNT 5.33 10^6/uL (4.35-5.85); RED CELL DISTRIBUTION WIDTH 15.5 % (10.0-14.5); WHITE BLOOD COUNT 5.7 10^3/uL (4.3-11.0)
[2016-07-24] MEDS: MAGNESIUM 1 GM/100 ML IVPB 100 ML IV SCH (06:00)
[2016-07-24] MEDS: CATHETER FLUSH 10 ML SYR IV SCH ×3 (06:00→21:31)
[2016-07-24] MEDS: POTASSIUM CL 10MEQ/50ML IVPB 50 ML IV SCH (06:00)
[2016-07-24 06:01] LABS: ANION GAP 12 MMOL/L (5-14); BLOOD UREA NITROGEN 22 MG/DL (7-18); BUN/CREATININE RATIO 28; CALCIUM 9.3 MG/DL (8.5-10.1); CARBON DIOXIDE 31 MMOL/L (21-32); CHLORIDE 98 MMOL/L (98-107); GFR ESTIMATED > 60; GLUCOSE 134 MG/DL (70-105); MAGNESIUM 2.3 MG/DL (1.8-2.4); PHOSPHORUS 3.3 MG/DL (2.3-4.7); POTASSIUM 4.1 MMOL/L (3.6-5.0); SODIUM 141 MMOL/L (135-145)
--- NOTE | 2016-07-24 06:07 | Pulmonary Progress Note ---
Subjective Subjective/Events-last exam Pt appears to be doing better. Exam Exam Vital Signs Date Time Temp Pulse Resp B/P Pulse Ox O2 Delivery O2 Flow Rate FiO2 07/24/16 05:00 69 9 121/67 92 Mechanical Ventilator 40.00 07/24/16 04:00 77 25 92 40 07/24/16 04:00 92 40 07/24/16 04:00 66 16 115/65 92 Mechanical Ventilator 40.00 07/24/16 03:59 99.5 07/24/16 03:21 67 07/24/16 03:00 67 24 127/75 99 Mechanical Ventilator 40.00 07/24/16 02:05 57 25 93 40 07/24/16 02:00 59 14 108/69 93 Mechanical Ventilator 40.00 07/24/16 01:00 53 24 116/68 93 Mechanical Ventilator 40.00 07/24/16 01:00 53 07/24/16 00:06 63 25 94 40 07/24/16 00:00 93 40 07/24/16 00:00 97.7 07/24/16 00:00 66 24 117/74 94 Mechanical Ventilator 40.00 07/23/16 23:03 99.0 62 25 123/71 93 Mechanical Ventilator 40.00 07/23/16 23:00 68 9 115/70 92 Mechanical Ventilator 40.00 07/23/16 22:01 62 25 93 40 07/23/16 22:00 62 14 123/71 93 Mechanical Ventilator 40.00 07/23/16 21:23 99.0 07/23/16 21:00 75 25 137/80 94 Mechanical Ventilator 40.00 07/23/16 20:16 72 25 93 40 07/23/16 20:00 93 40 07/23/16 20:00 101.0 73 25 152/83 94 Mechanical Ventilator 40.00 07/23/16 19:00 74 32 139/77 93 Mechanical Ventilator 40.00 07/23/16 19:00 74 07/23/16 18:55 70 25 90 35 07/23/16 18:50 131/90 07/23/16 18:00 79 25 135/80 93 Mechanical Ventilator 35.00 07/23/16 17:00 76 25 136/82 90 Mechanical Ventilator 35.00 07/23/16 16:49 73 25 92 30 07/23/16 16:00 92 35 07/23/16 16:00 99.8 71 25 127/75 92 Mechanical Ventilator 35.00 07/23/16 15:00 85 25 139/86 98 Mechanical Ventilator 30.00 07/23/16 14:19 119/69 07/23/16 14:02 66 24 92 40 07/23/16 14:00 69 25 125/74 93 Mechanical Ventilator 40.00 07/23/16 13:00 99.7 63 25 116/66 92 Mechanical Ventilator 40.00 07/23/16 13:00 62 07/23/16 12:50 99.7 07/23/16 12:14 100.2 07/23/16 12:00 92 40 07/23/16 12:00 67 25 114/64 91 Mechanical Ventilator 40.00 07/23/16 11:55 100.2 07/23/16 11:00 69 25 120/65 91 Mechanical Ventilator 40.00 07/23/16 10:10 67 25 94 50 07/23/16 10:00 65 25 118/67 95 Mechanical Ventilator 50.00 07/23/16 09:00 78 25 133/71 95 Mechanical Ventilator 50.00 07/23/16 08:39 143/86 07/23/16 08:30 100.2 84 Mechanical Ventilator 07/23/16 08:29 66 25 97 50 07/23/16 08:00 100.2 07/23/16 08:00 94 50 07/23/16 08:00 65 25 127/78 96 Mechanical Ventilator 50.00 07/23/16 08:00 86 25 94 07/23/16 07:14 99.8 07/23/16 07:00 66 25 122/79 96 Mechanical Ventilator 50.00 07/23/16 07:00 66 07/23/16 06:56 66 25 97 55 07/23/16 06:30 99.6 I & O 07/24/16 07:00 Intake Total 2205 ml Output Total 1540 ml Balance 665 ml General Appearance: No Apparent Distress Chronically ill Obese Other (on ventilator) HEENT: PERRL/EOMI Neck: Normal Inspection Respiratory: Crackles Decreased Breath Sounds Wheezing Cardiovascular: Regular Rate, Rhythm No Edema No Gallop No JVD No Murmur Capillary Refill: Less Than 3 Seconds Extremity: Swelling Neurologic/Psychiatric: Other (sedated on ventilator) Skin: Normal Color Warm/Dry Lymphatic: No Adenopathy Results Lab Laboratory Tests 07/23/16 03:41 07/24/16 05:10 Assessment/Plan Assessment/Plan Acute on chronic respiratory failure requiring ventilator with ARDS vs CHF -Decrease PEEP to 5 from 10 -Obtain weaning parameters and wean Diprivan to d/c add precedex and morphine for comfort -SVNs duoneb and pulmicort bilateral infiltrates probably aspiration pneumonia - Zosyn and vancomycin Severe COPD/emphysema -SVNs -solumedrol tobacco dependance -education Obesity with probable JEN Clinical Quality Measures DVT/VTE Risk/Contraindication: Risk Factor Score Per Nursin RFS Level Per Nursing on Admit: 4+=Very High AMAIRANI LOMBARDO DO Jul 24, 2016 06:07
[2016-07-24] MEDS: PIPERACILLIN SODIUM/TAZOBACTAM 4.5 GM in NS (IVPB) 100 ML IV SCH ×3 (06:18→21:31)
[2016-07-24] MEDS: DEXMEDETOMIDINE PRE-MIX 100 ML IV SCH (06:25)
[2016-07-24] MEDS: VANCOMYCIN 1,750 MG/NS 500 ML IVPB IV SCH ×2 (06:30)
[2016-07-24] MEDS: RT-BUDESONIDE NEBS 0.5 MG/2ML (PULMICORT) AMP INH SCH ×2 (06:34→18:45)
--- NOTE | 2016-07-24 08:16 | Diagnostic Imaging Report ---
Portable semi upright radiograph of the chest. COMPARISON: 07/24/2016. INDICATION: Respiratory failure. FINDINGS: The ET tube is in good position. There is increased lucency in the upper lobes with interstitial thickening in the lung bases suggestive of COPD. No definite superimposed infiltrate. The heart size is at the upper limits of normal. No effusion or pneumothorax. The mediastinum and jeanna appear unremarkable. IMPRESSION: Findings suggestive of COPD with chronic-appearing interstitial thickening in the bases. No definite airspace consolidation is seen. Dictated by: Dictated on workstation # [id number]
[2016-07-24 08:58] LABS: ABG BASE EXCESS 8.2 MMOL/L (-2.5-2.5); ABG HCO3 36 MMOL/L (23-27); ABG OXYGEN SATURATION 96 % (94-100); ABG PCO2 64 MMHG (35-45); ABG PH 7.37 (7.37-7.43); ABG PO2 82 MMHG (79-93); ABG TCO2 38.1 MMOL/L (21.0-31.0)
[2016-07-24 08:59] LABS: PATIENT TEMP 99.2
--- NOTE | 2016-07-24 09:35 | Physical Therapy Daily Note ---
PT Daily Note-Current Subjective Patient is slightly alert and on vent. Transfers Functional [place] Measure 0=Not Assessed/NA 4=Minimal Assistance 1=Total Assistance 5=Supervision or Setup 2=Maximal Assistance 6=Modified [place] 3=Moderate Assistance 7=Complete IndependenceIRFPAI Quality Coding Scale 6 Independent with activity with or without an assistive device 5 Patient requires set up or clean up by helper. Patient completes activity by themselves 4 Supervision or touching assist (CGA). [place] provide cues , steadying assist 3 The helper provides less than half the effort to complete the activity 2 The helper provides more than half the effort to complete the activity 1 Dependent. The helper does all the effort to complete an activity 7 Patient refused to complete or attempt activity 9 The patient did not perform the activity before the current illness or injury 88 Not attempted due to Medical conditions or safety concerns Exercises Supine Ex: Ankle pumps, Quad Set, Heel Slides, Straight leg raise, Hip abd/add Supine Reps: 15 (x 2 sets AAROM) Assessment Patient is able to follow direction and perform exercises with PT direction and assistance. PT to increase activity as patient improves medically. PT Jail Goals Jail Goals PT Jail Goals Time Frame: Jul 30, 2016 Transfers (B,C,W/C) (FIM): 4 Gait (FIM): 1 Gait distance (FIM): 1=up to 49 ft Distance: 5' Gait Level of Assist: 4 Gait Assistive Device: FWW PT Plan Treatment/Plan Treatment Plan: Continue Plan of Care Treatment Plan: Bed Mobility, Education, Functional Activity Ty, Functional Strength, Gait, Safety, Therapeutic Exercise, Transfers Treatment Duration: Jul 30, 2016 Visits Per Week: 5 Time/GCodes Time In: 851 Time Out: 901 Total Billed Treatment Time: 10 Total Billed Treatment 1 visit EX 10 min LES PYLE PT Jul 24, 2016 09:35
[2016-07-24] MEDS: CHLORHEXIDINE 0.12% SOLN 15 ML (PERIDEX) UDC PO SCH ×2 (09:39→21:00)
[2016-07-24] MEDS: PANTOPRAZOLE 40 MG/10 ML (PROTONIX) VIAL IV SCH ×2 (10:34→21:31)
--- NOTE | 2016-07-24 11:38 | Progress Note-Hospitalist ---
Progress Note HPI/CC on Admission CC: Respiratory failure HPI: Dr. Haddad at [facility] called be at 2300 last night to report need for transfer to higher level of care. ABG showed 7.29/79/59 and failed BiPAP so I gave orders for intubation prior to transfer. Pt on Zosyn, empirically, and maintained on vent at 580/25/15/60%. 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 Pt was seen by Dr. Hernandez. Pt is on Zosyn and steroids. Patient Interview: Physical exam stable Scribed by Harshal Shah under the direct supervision of Dr. Walsh. 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 Pt was unhappy that he will be unable to smoke. Pt was fighting with his brother regarding this issue. Patient Interview: Pt states that he is doing ok. Pt states that he would like to eat. Physical exam stable. Pt denies having any pain currently. No fever, vital signs stable, awake Regular rate and rhythm, wheezes to auscultation [facility] Severe COPD with continued smoking 4ppd H/O pneumonia 09/27 H/O Volume overload 09/27 Long-standing mental illness: Schizophrenia Hypertension Hyperlipidemia Pleural effusion h/o 09/27 Social issues Plan: SW will pursue DC options since [facility] will not accept pt due to insurance coverage issues Maintain on antibiotics empirically Prognosis poor and needs alf at discharge at the very least and likely Hospice Updated PCP Dr Haddad Monitor closely since pt extubated this morning and unsure if he will be successful Scribed by Harshal Shah under the direct supervision of Dr. Walsh. SILVIO WALSH DO Jul 24, 2016 11:38
--- NOTE | 2016-07-24 14:00 | Occupational Therapy Eval ---
OT Evaluation-General/PLF Medical Diagnosis Admission Date Jul 22, 2016 at 00:37 Medical Diagnosis: resp. failure Onset Date: Jul 22, 2016 Therapy Diagnosis Therapy Diagnosis: decr self care, decr funct mobility, weakness, decr activity tolerance Height/Weight Height (Feet): 5 Height (Inches): 10.00 Weight (Pounds): 273 Weight (Ounces): 6.4 Precautions Precautions/Isolations: Fall Prevention, Standard Precautions, Pressure Ulcer Safety Interventions: Reorient-Attempt, Reorient-PRN Referral Physician: Mary Referral Reason: Evaluation/Treatment Medical History Pertinent Medical History: COPD, HTN, Smoking Additional Medical History Developmental disorder, mild MR, BPH, anxiety, bipolar, schizophrenia, violent behavior, obesity, pneumonia Current History Acute respiratory failure, CHF Reviewed History: Yes Social History Home: Apartment Current Living Status: Alone Entry Into Home: Level Entry ADL-Prior Level of Function ADL PLOF Comments Pt was poor historian and oftentimes difficult to understand. he reported that he was able to manage his basic self care needs, incl dressing, toileting and bathing. Review of prior records indicates that he lives in an apartment in [place] and has someone check on him weekly. He does not drive Unknown equipment Drive Self: No OT Current Status Subjective Pt seen in room, up in bed, agreeable to OT. Had been extubated this morning and was coughing. Pt did not answer when questioned about pain Appearance Pt was singularly focused on his lunch that had just arrived and did not answer many questions. He was difficult to understand and mumbled. Mental Status/Objective Attachments: Nguyễn Catheter, IV, Oxygen, SCD's, Telemetry Current Upper Extremity ROM Appears functional bilat Upper Extremity Strength Appears functional for feeding himself bilat. Pt did not answer questions about handedness. ADL-Treatment Functional [place] Measure 0=Not Assessed/NA 4=Minimal Assistance 1=Total Assistance 5=Supervision or Setup 2=Maximal Assistance 6=Modified [place] 3=Moderate Assistance 7=Complete IndependenceIRFPAI Quality Coding Scale 6 Independent with activity with or without an assistive device 5 Patient requires set up or clean up by helper. Patient completes activity by themselves 4 Supervision or touching assist (CGA). [place] provide cues , steadying assist 3 The helper provides less than half the effort to complete the activity 2 The helper provides more than half the effort to complete the activity 1 Dependent. The helper does all the effort to complete an activity 7 Patient refused to complete or attempt activity 9 The patient did not perform the activity before the current illness or injury 88 Not attempted due to Medical conditions or safety concerns Eating (FIM): 5 (Pt was able to feed himself with setup, using silverware and fingers. Able to open straw and hold cup. No choking observed. Very focused on eating) Other Treatments Pt education about OT and goals, which he agreed with. Education OT Patient Education: Rehab process Teaching Recipient: Patient Teaching Methods: Discussion Response to Teaching: Verbalize Understanding OT Short Term Goals Short Term Goals 1=Demonstrate adherence to instructed precautions during ADL tasks. 2=Patient will verbalize/demonstrate understanding of assistive devices/ modifications for ADL. 3=Patient will improve strength/tolerance for activity to enable patient to perform ADL's. OT Oyster Grader Goals Longterm Goals Time Frame: Aug 07, 2016 Eating (FIM): 6 Grooming(FIM): 6 Bathing(FIM): 5 Upper Body Dressing(FIM): 5 Lower Body Dressing(FIM): 5 Toileting(FIM): 5 Toilet/Commode Transfer(FIM): 5 Shower Transfer(FIM): 5 1=Demonstrate adherence to instructed precautions during ADL tasks. 2=Patient will verbalize/demonstrate understanding of assistive devices/ modifications for ADL. 3=Patient will improve strength/tolerance for activity to enable patient to perform ADL's. OT Education/Plan Problem List/Assessment Assessment: Decreased Activ Tolerance, Decreased Safety Aware, Decreased UE Strength (for functional mobility), Dependent Transfers, Impaired Funct Balance , Impaired Self-Care Skills Pt would benefit from skilled OT to increase his independence in basic self care to allow him to return to his home or to least restrictive environment and to decrease caregiver burden Discharge Recommendations Plan/Recommendations: Continue POC Barriers to Progress cognitive status, mental status, behaviors Treatment Plan/Plan of Care Treatment,Training & Education: Yes Patient would benefit from OT for education, treatment and training to promote independence in ADL's, mobility, safety and/or upper extremity function for ADL' s. Plan of Care: ADL Retraining, Functional Mobility, UE Funct Exercise/Act, UE Neuromus Re-Ed/Coord Treatment Duration: Aug 07, 2016 # of days/week 5-6 Visits Per Week: 5-6 Agreement: Yes Rehab Potential: Poor Time/GCodes Start Time: 13:30 Stop Time: 13:45 Total Time Billed (hr/min): 15 Billed Treatment Time visit, 15 minutes evaluation high intensity ROCCO RAE OT Jul 24, 2016 14:00
[2016-07-24] MEDS ORDERED: RT-ALBUTEROL/IPRATROPIUM 3 ML (DUONEB) VIAL INH PRN (16:30)
[2016-07-24] MEDS ORDERED: FUROSEMIDE 40 MG/4 ML INJ (LASIX) IVP NR (16:45)
[2016-07-24 16:50] LABS: ABG BASE EXCESS 8.9 MMOL/L (-2.5-2.5); ABG HCO3 36 MMOL/L (23-27); ABG OXYGEN SATURATION 96 % (94-100); ABG PCO2 60 MMHG (35-45); ABG PO2 79 MMHG (79-93)
[2016-07-24 16:52] LABS: PATIENT TEMP 99.1
--- NOTE | 2016-07-24 17:39 | Diagnostic Imaging Report ---
INDICATION: Respiratory distress. Compared with exam earlier this same date. FINDINGS: The ET tube has been removed with only slight reduction in lung volumes. Enlargement of the cardiac silhouette appears somewhat more pronounced, likely owing to the AP technique in a somewhat lordotic orientation. Central vascular congestion and perihilar infiltrates or edema unchanged. IMPRESSION: Only slight reduction in lung volumes postextubation. When differing film technique taken into account, no other convincing change. Dictated by: Dictated on workstation # [id number]
[2016-07-24] MEDS ORDERED: ACETAMINOPHEN 325 MG TABLET/CAPLET (TYLENOL) ONE (21:55)
[2016-07-24] MEDS: DICYCLOMINE 10 MG (BENTYL) CAP PO PRN (22:02)
[2016-07-24] MEDS: ACETAMINOPHEN 325 MG TABLET/CAPLET (TYLENOL) PO PRN (22:03)
[2016-07-25] VITALS (28 sets, daily range): BP systolic 103–146; BP diastolic 63–96
[2016-07-25] MEDS: methylPREDNISolone 40 MG/ML (Solu-MEDROL) VIAL IV SCH ×4 (01:00→17:45)
[2016-07-25] MEDS: RT-ALBUTEROL/IPRATROPIUM 3 ML (DUONEB) VIAL INH SCH ×6 (02:20→22:54)
[2016-07-25 02:36] LABS: BASOPHILS % (AUTO) 0 % (0-10); EOSINOPHILS % (AUTO) 0 % (0-10); LYMPHOCYTES # (AUTO) 0.4 X 10^3 (1.0-4.0); LYMPHOCYTES % (AUTO) 6 % (12-44); MEAN CORPUSCULAR HEMOGLOBIN 30 PG (25-34); MEAN CORPUSCULAR HGB CONC 32 G/DL (32-36); MEAN CORPUSCULAR VOLUME 95 FL (80-99); MEAN PLATELET VOLUME 10.2 FL (7.4-10.4); MONOCYTES # (AUTO) 0.7 X 10^3 (0.0-1.0); MONOCYTES % (AUTO) 12 % (0-12); NEUTROPHILS # (AUTO) 5.1 X 10^3 (1.8-7.8); NEUTROPHILS % (AUTO) 82 % (42-75); PLATELET COUNT 170 10^3/uL (130-400); RED BLOOD COUNT 5.33 10^6/uL (4.35-5.85); RED CELL DISTRIBUTION WIDTH 15.5 % (10.0-14.5); WHITE BLOOD COUNT 6.3 10^3/uL (4.3-11.0)
[2016-07-25 02:52] LABS: ANION GAP 10 MMOL/L (5-14); BLOOD UREA NITROGEN 20 MG/DL (7-18); BUN/CREATININE RATIO 24; CALCIUM 9.1 MG/DL (8.5-10.1); CARBON DIOXIDE 37 MMOL/L (21-32); CHLORIDE 96 MMOL/L (98-107); CREATININE SERUM 0.85 MG/DL (0.60-1.30); GFR ESTIMATED > 60; GLUCOSE 89 MG/DL (70-105); MAGNESIUM 2.2 MG/DL (1.8-2.4); PHOSPHORUS 4.5 MG/DL (2.3-4.7); POTASSIUM 3.6 MMOL/L (3.6-5.0); SODIUM 143 MMOL/L (135-145)
[2016-07-25] MEDS ORDERED: KCL 20 MEQ TAB (K-DUR) PO ONE (05:15)
[2016-07-25] MEDS: MAGNESIUM 1 GM/100 ML IVPB 100 ML IV SCH (05:16)
[2016-07-25] MEDS: POTASSIUM CL 10MEQ/50ML IVPB 50 ML IV SCH (05:16)
[2016-07-25] MEDS: KCL 20 MEQ TAB (K-DUR) PO SCH (05:16)
[2016-07-25] MEDS: CATHETER FLUSH 10 ML SYR IV SCH ×3 (05:54→22:34)
[2016-07-25] MEDS: DEXMEDETOMIDINE PRE-MIX 100 ML IV SCH (05:55)
[2016-07-25] MEDS: PIPERACILLIN SODIUM/TAZOBACTAM 4.5 GM in NS (IVPB) 100 ML IV SCH ×3 (05:55→22:34)
[2016-07-25] MEDS: RT-BUDESONIDE NEBS 0.5 MG/2ML (PULMICORT) AMP INH SCH ×2 (07:12→19:41)
[2016-07-25] MEDS: CATHETER FLUSH 10 ML SYR IV PRN ×2 (08:19→11:11)
[2016-07-25] MEDS: CHLORHEXIDINE 0.12% SOLN 15 ML (PERIDEX) UDC PO SCH (08:19)
[2016-07-25] MEDS: PANTOPRAZOLE 40 MG/10 ML (PROTONIX) VIAL IV SCH ×2 (08:19→20:42)
[2016-07-25] MEDS: DICYCLOMINE 10 MG (BENTYL) CAP PO PRN ×2 (08:19→15:19)
--- NOTE | 2016-07-25 08:43 | Diagnostic Imaging Report ---
Portable erect AP chest at 532 hours. INDICATION: Respiratory distress. FINDINGS: The cardiomegaly noted on the prior exam of 07/24/16 is again evident and no different. The central pulmonary vascularity remains prominent and there are still vague areas of increased density in both lung bases. The upper lungs are clear. The mediastinum is not widened. The osseous structures are intact. IMPRESSION: Stable chest. There has been no adverse change since the prior exam. Dictated by: Dictated on workstation # [id number]
--- NOTE | 2016-07-25 11:27 | Progress Note-Hospitalist ---
Subjective HPI/CC On Admission CC: Respiratory failure HPI: Dr. Haddad at [facility] called be at 2300 last night to report need for transfer to higher level of care. ABG showed 7.29/79/59 and failed BiPAP so I gave orders for intubation prior to transfer. Pt on Zosyn, empirically, and maintained on vent at 580/25/15/60%. 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 Pt was seen by Dr. Hernandez. Pt is on Zosyn and steroids. Patient Interview: Physical exam stable Scribed by Harshal Shah under the direct supervision of Dr. Zavaleta. Date Seen 07/25/16 Subjective/Events-last exam Patient was sitting up in bed voicing no complaints. He had breakfast this morning without any coughing or choking. He denies shortness of breath or chest pain. He's had some coughing has small little bit of mucus denies any sputum production. He denies abdominal pain or nausea. Affect is flat he appears to be in no acute distress. Objective Exam Vital Signs Vital Sign - Last 12Hours 07/22/16 07/22/16 07/22/16 07/22/16 00:45 00:47 01:10 09:00 Temp 100.7 Pulse 108 Resp 10 B/P 173/97 Pulse Ox 89 O2 Delivery Mechanical Ventilator O2 Flow Rate 100.00 FiO2 100 Capillary Refill : Less Than 3 Seconds General Appearance: No Apparent Distress Obese Respiratory: Chest Non Tender Other (Mild expiratory wheeze anteriorly posterior breath sounds are diminished with scattered rhonchi are diminished breath sounds in the bases.) Cardiovascular: No Murmur (Difficult to appreciate over respiratory congestion however) Other (Patient was in a bigeminal rhythm during the interview noted on telemetry monitoring.) Extremity: Non Tender No Calf Tenderness Pedal Edema Neurologic/Psychiatric: Alert Results/Procedures Lab Laboratory Tests 07/25/16 02:25 Assessment/Plan Assessment and Plan Assess & Plan/Chief Complaint 1. Pneumonitis possible aspiration in etiology with respiratory failure improving continue ICU monitoring today. If improvement continues consider transfer to the floor stepdown status tomorrow. 2. Reported history of schizophrenia MICAH DESOUZA MD Jul 25, 2016 11:27
[2016-07-25] MEDS ORDERED: POLYETHYLENE GLYCOL 17 GM (MIRALAX) PACK PO ONE (12:00)
[2016-07-25] MEDS ORDERED: PIPERACILLIN/TAZO 4.5 GM VIAL (ZOSYN) IV ONE (14:35)
[2016-07-25] MEDS ORDERED: NS (IVPB) 100 ML ONE (14:36)
[2016-07-25] MEDS: fentaNYL INJECTION 100 MCG/2 ML AMP IV PRN (15:41)
[2016-07-25] MEDS: POLYETHYLENE GLYCOL 17 GM (MIRALAX) PACK PO SCH (20:42)
[2016-07-26] VITALS (25 sets, daily range): BP systolic 115–147; BP diastolic 56–122
[2016-07-26] MEDS: methylPREDNISolone 40 MG/ML (Solu-MEDROL) VIAL IV SCH ×4 (00:04→17:39)
[2016-07-26] MEDS: RT-ALBUTEROL/IPRATROPIUM 3 ML (DUONEB) VIAL INH SCH ×6 (02:16→22:27)
[2016-07-26 03:49] LABS: BASOPHILS % (AUTO) 0 % (0-10); EOSINOPHILS % (AUTO) 0 % (0-10); LYMPHOCYTES # (AUTO) 0.4 X 10^3 (1.0-4.0); LYMPHOCYTES % (AUTO) 7 % (12-44); MEAN CORPUSCULAR HEMOGLOBIN 30 PG (25-34); MEAN CORPUSCULAR HGB CONC 32 G/DL (32-36); MEAN CORPUSCULAR VOLUME 95 FL (80-99); MEAN PLATELET VOLUME 10.4 FL (7.4-10.4); MONOCYTES # (AUTO) 0.5 X 10^3 (0.0-1.0); MONOCYTES % (AUTO) 9 % (0-12); NEUTROPHILS % (AUTO) 83 % (42-75); PLATELET COUNT 140 10^3/uL (130-400); RED BLOOD COUNT 5.46 10^6/uL (4.35-5.85); RED CELL DISTRIBUTION WIDTH 15.4 % (10.0-14.5); WHITE BLOOD COUNT 4.8 10^3/uL (4.3-11.0)
[2016-07-26 04:10] LABS: ANION GAP 12 MMOL/L (5-14); BLOOD UREA NITROGEN 21 MG/DL (7-18); BUN/CREATININE RATIO 29; CALCIUM 9.1 MG/DL (8.5-10.1); CARBON DIOXIDE 31 MMOL/L (21-32); CHLORIDE 98 MMOL/L (98-107); CREATININE SERUM 0.73 MG/DL (0.60-1.30); GFR ESTIMATED > 60; GLUCOSE 96 MG/DL (70-105); MAGNESIUM 2.1 MG/DL (1.8-2.4); POTASSIUM 4.3 MMOL/L (3.6-5.0); SODIUM 141 MMOL/L (135-145)
[2016-07-26] MEDS: MAGNESIUM 1 GM/100 ML IVPB 100 ML IV SCH (06:00)
[2016-07-26] MEDS: KCL 20 MEQ TAB (K-DUR) PO SCH (06:00)
[2016-07-26] MEDS: POTASSIUM CL 10MEQ/50ML IVPB 50 ML IV SCH (06:00)
[2016-07-26] MEDS: CATHETER FLUSH 10 ML SYR IV SCH ×3 (06:23→21:36)
[2016-07-26] MEDS: PIPERACILLIN SODIUM/TAZOBACTAM 4.5 GM in NS (IVPB) 100 ML IV SCH ×3 (06:24→22:37)
[2016-07-26] MEDS: RT-BUDESONIDE NEBS 0.5 MG/2ML (PULMICORT) AMP INH SCH ×2 (06:49→19:21)
--- NOTE | 2016-07-26 08:59 | Diagnostic Imaging Report ---
EXAM: CHEST 1 VIEW, AP/PA ONLY INDICATION: Respiratory failure. COMPARISON: Chest radiograph 07/25/2016. FINDINGS: No significant change. Shallow inspiration accentuates the cardiomegaly and pulmonary venous congestion. Atelectasis or infiltrate in the lung bases. No acute osseous findings. IMPRESSION: No significant change. Low lung volumes accentuate the cardiomegaly and pulmonary venous congestion. Persistent bibasilar atelectasis or infiltrate. Dictated by: Dictated on workstation # [id number]
[2016-07-26] MEDS: PANTOPRAZOLE 40 MG/10 ML (PROTONIX) VIAL IV SCH ×2 (09:04→20:28)
[2016-07-26] MEDS: POLYETHYLENE GLYCOL 17 GM (MIRALAX) PACK PO SCH ×2 (09:04→20:28)
[2016-07-26] MEDS: ACETAMINOPHEN 325 MG TABLET/CAPLET (TYLENOL) PO PRN (09:43)
--- NOTE | 2016-07-26 10:45 | Progress Note-Hospitalist ---
Subjective HPI/CC On Admission CC: Respiratory failure HPI: Dr. Haddad at [facility] called be at 2300 last night to report need for transfer to higher level of care. ABG showed 7.29/79/59 and failed BiPAP so I gave orders for intubation prior to transfer. Pt on Zosyn, empirically, and maintained on vent at 580/25/15/60%. 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 Pt was seen by Dr. Hernandez. Pt is on Zosyn and steroids. Patient Interview: Physical exam stable Scribed by Harshal Shah under the direct supervision of Dr. Zavaleta. Date Seen 07/26/16 Subjective/Events-last exam patient was sitting up eating breakfast without choking or coughing. He has oxygen off and his alarm was going off with an O2 saturation in the low 80s. He denies shortness of breath. High flow O2 per nasal cannula was replaced and he came back up to the high 80s. He tolerated solids and liquids without choking or coughing. He voices no complaints. Objective Exam Vital Signs Vital Sign - Last 12Hours 07/22/16 07/22/16 07/22/16 07/22/16 00:45 00:47 01:10 09:00 Temp 100.7 Pulse 108 Resp 10 B/P 173/97 Pulse Ox 89 O2 Delivery Mechanical Ventilator O2 Flow Rate 100.00 FiO2 100 Capillary Refill : Less Than 3 Seconds General Appearance: No Apparent Distress Respiratory: Chest Non Tender No Accessory Muscle Use Other (scattered rhonchi throughout respiratory rate 20 nonlabored) Cardiovascular: No Murmur Other (bigeminal rhythm asymptomatic) Results/Procedures Lab Laboratory Tests 07/26/16 03:35 Assessment/Plan Assessment and Plan Assess & Plan/Chief Complaint 1. Pneumonitis possible aspiration in etiology with respiratory failure improving continue ICU monitoring today. If improvement continues consider transfer to the floor stepdown status tomorrow. 2. Reported history of schizophrenia MICAH DESOUZA MD Jul 26, 2016 10:45
[2016-07-26] MEDS ORDERED: NS (IVPB) 100 ML ONE (14:50)
[2016-07-26] MEDS ORDERED: PIPERACILLIN/TAZO 4.5 GM VIAL (ZOSYN) IV ONE (14:50)
[2016-07-26] MEDS: DICYCLOMINE 10 MG (BENTYL) CAP PO PRN (19:18)
[2016-07-26] MEDS ORDERED: diphenhydrAMINE 25 MG TAB (BENADRYL) PO ONE (21:22)
[2016-07-26] MEDS: diphenhydrAMINE 25 MG TAB (BENADRYL) PO PRN (21:36)
[2016-07-26] MEDS: MELATONIN 3 MG TABLET PO PRN (21:36)
[2016-07-27] VITALS (16 sets, daily range): BP systolic 116–144; BP diastolic 65–103
[2016-07-27] MEDS: methylPREDNISolone 40 MG/ML (Solu-MEDROL) VIAL IV SCH ×5 (00:36→23:51)
[2016-07-27] MEDS: RT-ALBUTEROL/IPRATROPIUM 3 ML (DUONEB) VIAL INH SCH ×6 (02:34→23:00)
[2016-07-27 04:23] LABS: BASOPHILS % (AUTO) 0 % (0-10); EOSINOPHILS % (AUTO) 0 % (0-10); LYMPHOCYTES # (AUTO) 0.4 X 10^3 (1.0-4.0); LYMPHOCYTES % (AUTO) 9 % (12-44); MEAN CORPUSCULAR HEMOGLOBIN 30 PG (25-34); MEAN CORPUSCULAR HGB CONC 32 G/DL (32-36); MEAN CORPUSCULAR VOLUME 95 FL (80-99); MEAN PLATELET VOLUME 10.6 FL (7.4-10.4); MONOCYTES # (AUTO) 0.4 X 10^3 (0.0-1.0); MONOCYTES % (AUTO) 8 % (0-12); NEUTROPHILS # (AUTO) 3.8 X 10^3 (1.8-7.8); NEUTROPHILS % (AUTO) 83 % (42-75); PLATELET COUNT 132 10^3/uL (130-400); RED CELL DISTRIBUTION WIDTH 15.1 % (10.0-14.5); WHITE BLOOD COUNT 4.6 10^3/uL (4.3-11.0)
[2016-07-27 04:45] LABS: ANION GAP 12 MMOL/L (5-14); BLOOD UREA NITROGEN 19 MG/DL (7-18); BUN/CREATININE RATIO 23; CALCIUM 9.3 MG/DL (8.5-10.1); CARBON DIOXIDE 32 MMOL/L (21-32); CHLORIDE 96 MMOL/L (98-107); CREATININE SERUM 0.82 MG/DL (0.60-1.30); GFR ESTIMATED > 60; GLUCOSE 106 MG/DL (70-105); MAGNESIUM 1.9 MG/DL (1.8-2.4); POTASSIUM 4.5 MMOL/L (3.6-5.0); SODIUM 140 MMOL/L (135-145)
[2016-07-27] MEDS: KCL 20 MEQ TAB (K-DUR) PO SCH (05:59)
[2016-07-27] MEDS: POTASSIUM CL 10MEQ/50ML IVPB 50 ML IV SCH (05:59)
[2016-07-27] MEDS: MAGNESIUM 1 GM/100 ML IVPB 100 ML IV SCH (05:59)
[2016-07-27] MEDS: CATHETER FLUSH 10 ML SYR IV SCH ×3 (06:19→22:35)
--- NOTE | 2016-07-27 06:50 | Pulmonary Progress Note ---
Subjective Subjective/Events-last exam Pt is doing well off vent however requiring a lot of oxygen. Exam Exam Vital Signs Date Time Temp Pulse Resp B/P Pulse Ox O2 Delivery O2 Flow Rate FiO2 07/27/16 06:00 55 17 116/69 90 Vapotherm 85.00 20.00 07/27/16 05:00 56 19 117/71 91 Vapotherm 85.00 20.00 07/27/16 04:45 20.00 85 07/27/16 04:37 90 20.00 85 07/27/16 04:00 98.7 75 28 137/99 94 Vapotherm 85.00 20.00 07/27/16 03:00 63 19 144/90 97 NIV Bilevel 65.00 07/27/16 02:50 61 13 95 NIV Bilevel 65.00 07/27/16 02:34 63 16 97 75.00 07/27/16 02:00 60 24 141/73 97 NIV Bilevel 75.00 07/27/16 01:00 63 25 128/70 94 NIV Bilevel 75.00 07/27/16 01:00 63 07/27/16 00:51 75 07/27/16 00:30 34 25 92 NIV Bilevel 75.00 07/27/16 00:13 66 25 90 75.00 07/27/16 00:00 98.8 59 23 127/74 89 Vapotherm 90.00 30.00 07/26/16 23:00 76 27 134/69 91 Vapotherm 90.00 30.00 07/26/16 22:27 92 20.00 90 07/26/16 22:00 72 16 147/96 92 Vapotherm 90.00 30.00 07/26/16 21:00 68 14 138/82 93 Vapotherm 90.00 30.00 07/26/16 20:36 30.00 90 07/26/16 20:00 97.0 75 16 138/87 92 Vapotherm 90.00 30.00 07/26/16 19:22 93 30.00 90 07/26/16 19:00 70 07/26/16 19:00 77 23 142/71 93 Vapotherm 90.00 30.00 07/26/16 18:00 68 21 132/79 94 NIV Bilevel 75.00 07/26/16 17:00 72 15 147/122 94 NIV Bilevel 75.00 07/26/16 16:02 90 07/26/16 16:00 98.9 07/26/16 16:00 59 16 135/74 95 NIV Bilevel 75.00 07/26/16 15:00 68 11 136/82 93 NIV Bilevel 75.00 07/26/16 14:00 53 10 115/73 96 NIV Bilevel 75.00 07/26/16 13:51 94 30.00 90 07/26/16 13:00 90 07/26/16 13:00 53 10 122/75 93 NIV Bilevel 75.00 07/26/16 12:00 98.3 07/26/16 12:00 59 15 131/72 95 NIV Bilevel 75.00 07/26/16 12:00 90 07/26/16 11:00 59 15 131/72 95 NIV Bilevel 75.00 07/26/16 10:29 94 30.00 90 07/26/16 10:00 72 10 140/74 94 NIV Bilevel 75.00 07/26/16 09:00 75 13 117/82 96 NIV Bilevel 75.00 07/26/16 08:00 98.9 07/26/16 08:00 75 07/26/16 08:00 74 10 138/82 96 NIV Bilevel 75.00 07/26/16 07:00 74 33 120/75 96 NIV Bilevel 75.00 07/26/16 07:00 66 07/26/16 06:50 63 21 97 75.00 I & O 07/27/16 07:00 Intake Total 5090 ml Output Total 2355 ml Balance 2735 ml General Appearance: No Apparent Distress Chronically ill Obese Other (on ventilator) HEENT: PERRL/EOMI Neck: Normal Inspection Respiratory: Crackles Decreased Breath Sounds Wheezing Cardiovascular: Regular Rate, Rhythm No Edema No Gallop No JVD No Murmur Capillary Refill: Less Than 3 Seconds Extremity: Swelling Neurologic/Psychiatric: Other (sedated on ventilator) Skin: Normal Color Warm/Dry Lymphatic: No Adenopathy Results Lab Laboratory Tests 07/26/16 03:35 07/27/16 04:07 Assessment/Plan Assessment/Plan Acute on chronic respiratory failure requiring ventilator with ARDS vs CHF -PT is doing well off ventilator -He is requiring 80% oxygen via thermaflow -SVNs duoneb and pulmicort bilateral infiltrates probably aspiration pneumonia -Abx are now D/C'd Severe COPD/emphysema -SVNs -solumedrol tobacco dependance -education Obesity with probable JEN Clinical Quality Measures DVT/VTE Risk/Contraindication: Risk Factor Score Per Nursin RFS Level Per Nursing on Admit: 4+=Very High AMAIRANI LOMBARDO DO Jul 27, 2016 06:50
[2016-07-27] MEDS: RT-BUDESONIDE NEBS 0.5 MG/2ML (PULMICORT) AMP INH SCH ×2 (07:10→19:45)
[2016-07-27] MEDS: PANTOPRAZOLE 40 MG/10 ML (PROTONIX) VIAL IV SCH ×2 (08:32→20:23)
[2016-07-27] MEDS: POLYETHYLENE GLYCOL 17 GM (MIRALAX) PACK PO SCH ×2 (08:32→20:23)
--- NOTE | 2016-07-27 09:30 | Diagnostic Imaging Report ---
INDICATION: Respiratory failure. COMPARISON: 07/26/2016. FINDINGS: There is worsened infiltrate in the right lower lobe with stable mild cardiomegaly and central vascular congestion. IMPRESSION: The worsened right lower lobe infiltrate is suspicious for pneumonia. There are background features of cardiomegaly and vascular congestion again noted, unchanged. Dictated by: Dictated on workstation # [id number]
--- NOTE | 2016-07-27 12:09 | Occupational Ther Daily Note ---
OT Current Status-Daily Note Subjective Pt seen in room, up in recliner, agreeable to OT. No pain mentioned Mental Status/Objective Functional [place] Measure 0=Not Assessed/NA 4=Minimal Assistance 1=Total Assistance 5=Supervision or Setup 2=Maximal Assistance 6=Modified [place] 3=Moderate Assistance 7=Complete [place] ADL-Treatment His nurse reported that he was standby assistance to get out of bed and get on toilet in room, His most limiting factor is all the tubing, wires and equipment needed. Pt was very focused on eating and also mentioned that he hadn't gone to the bathroom yet. Pt does not appear to have regular clothes here to work on dressing. Pt left up in recliner, all needs met. Functional [place] Measure 0=Not Assessed/NA 4=Minimal Assistance 1=Total Assistance 5=Supervision or Setup 2=Maximal Assistance 6=Modified [place] 3=Moderate Assistance 7=Complete IndependenceIRFPAI Quality Coding Scale 6 Independent with activity with or without an assistive device 5 Patient requires set up or clean up by helper. Patient completes activity by themselves 4 Supervision or touching assist (CGA). [place] provide cues , steadying assist 3 The helper provides less than half the effort to complete the activity 2 The helper provides more than half the effort to complete the activity 1 Dependent. The helper does all the effort to complete an activity 7 Patient refused to complete or attempt activity 9 The patient did not perform the activity before the current illness or injury 88 Not attempted due to Medical conditions or safety concerns Eating (FIM): 6 (Pt was able to open all packages, cut his food, butter his bread and feed himself without assistance. He has been able to get a drink himself, per nursing report) Education OT Patient Education: Progress toward Goal/Update tx plan Teaching Recipient: Patient Teaching Methods: Discussion OT Short Term Goals Short Term Goals 1=Demonstrate adherence to instructed precautions during ADL tasks. 2=Patient will verbalize/demonstrate understanding of assistive devices/ modifications for ADL. 3=Patient will improve strength/tolerance for activity to enable patient to perform ADL's. OT Skilled Nursing Goals Skilled Nursing Goals Time Frame: Aug 07, 2016 Eating (FIM): 6 Groomin Bathing(FIM): 5 Upper Body Dressing(FIM): 5 Lower Body Dressing(FIM): 5 Toileting(FIM): 5 Toilet/Commode Transfer(FIM): 5 Shower Transfer(FIM): 5 1=Demonstrate adherence to instructed precautions during ADL tasks. 2=Patient will verbalize/demonstrate understanding of assistive devices/ modifications for ADL. 3=Patient will improve strength/tolerance for activity to enable patient to perform ADL's. OT Education/Plan Problem List/Assessment Pt would benefit from skilled OT to increase his independence in basic self care to allow him to return to his home or to least restrictive environment and to decrease caregiver burden Discharge Recommendations Plan/Recommendations: Continue POC Treatment Plan/Plan of Care Patient would benefit from OT for education, treatment and training to promote independence in ADL's, mobility, safety and/or upper extremity function for ADL' s. Plan of Care: ADL Retraining, Functional Mobility, UE Funct Exercise/Act, UE Neuromus Re-Ed/Coord Treatment Duration: Aug 07, 2016 Visits Per Week: 5-6 Agreement: Yes Rehab Potential: Poor Time/GCodes Start Time: 11:30 Stop Time: 11:45 Total Time Billed (hr/min): 15 Billed Treatment Time visit, 15 minutes ADL ROCCO RAE OT Jul 27, 2016 12:08
--- NOTE | 2016-07-27 12:13 | Progress Note-Hospitalist ---
Standard Progress Note Progress Notes/Assess & Plan Date Seen 07/27/16 Diagnosis Assessment: VDRF Day # 2 now extubated Severe COPD with continued smoking 4ppd H/O pneumonia 09/27 H/O Volume overload 09/27 Long-standing mental illness: Schizophrenia Hypertension Hyperlipidemia Pleural effusion h/o 09/27 Assess & Plan/Chief Complaint The patient was sitting up in the chair eating lunch when I entered the room. He answered all questions with okay. Given a review of the previous record, his present state seems to be an unexpected improvement. He remains very tenuous. Physical exam: He is very disheveled and appears older than stated age. Vital signs are noted to be adequate. Lungs show very distant breath sounds without wheezing. CV was slightly irregular without murmur. Abdomen was obese. Impression: End-stage COPD with 4 pack per day smoking habit. 2.very tenuous state of improvement. Plan: Continue present medications and RT treatments. Continue high flow oxygen. Await assessment by [facility] Labs Laboratory Tests 07/26/16 03:35 07/27/16 04:07 MARCO JANSEN MD Jul 27, 2016 12:13
--- NOTE | 2016-07-27 14:59 | Physical Therapy Daily Note ---
PT Daily Note-Current Subjective Pt sitting up in recliner upon arrival. Nursing reports that pt is doing better. Pt reports still gets SOB with activity. Pt agrees to PT. Pain Numeric Pain Scale: 7 Location: Lower, Dorsal Location Body Site: Back Pain Description: Ache Comment: Pt reports moving and changing positions elevates some pain. Mental Status Patient Orientation: Person, Place Attachments: Oxygen, IV Transfers Functional [place] Measure 0=Not Assessed/NA 4=Minimal Assistance 1=Total Assistance 5=Supervision or Setup 2=Maximal Assistance 6=Modified [place] 3=Moderate Assistance 7=Complete IndependenceIRFPAI Quality Coding Scale 6 Independent with activity with or without an assistive device 5 Patient requires set up or clean up by helper. Patient completes activity by themselves 4 Supervision or touching assist (CGA). [place] provide cues , steadying assist 3 The helper provides less than half the effort to complete the activity 2 The helper provides more than half the effort to complete the activity 1 Dependent. The helper does all the effort to complete an activity 7 Patient refused to complete or attempt activity 9 The patient did not perform the activity before the current illness or injury 88 Not attempted due to Medical conditions or safety concerns Exercises Seated Therapy Exercises: Ankle pumps, Long arc quads, Hip flexion, Kicking activity, Hip abd/add Seated Reps: 10 Treatments Pt agrees to seated EX with PT. Pt completes EX with short rest break in between EX. Pt and PT discussed having FWW brought up for mobility. Pt is left with all needs met at end of tx. Assessment Current Status: Good Progress Pt is improving with more upright activity. PT Senior Living Goals Neonatal Nurse Practitioner Goals PT Neonatal Nurse Practitioner Goals Time Frame: Jul 30, 2016 Transfers (B,C,W/C) (FIM): 4 Gait (FIM): 1 Gait distance (FIM): 1=up to 49 ft Distance: 5' Gait Level of Assist: 4 Gait Assistive Device: FWW PT Plan Problem List Problem List: Activity Tolerance, Functional Strength, Safety, Balance, Gait, Transfer, Bed Mobility Treatment/Plan Treatment Plan: Continue Plan of Care Treatment Plan: Bed Mobility, Education, Functional Activity Ty, Functional Strength, Gait, Safety, Therapeutic Exercise, Transfers Treatment Duration: Jul 30, 2016 Visits Per Week: 5 Safety Risks/Education Patient Education: Transfer Techniques, Safety Issues Teaching Recipient: Patient Teaching Methods: Discussion Response to Teaching: Verbalize Understanding Time/GCodes Time In: 1405 Time Out: 1420 Total Billed Treatment Time: 15 Total Billed Treatment visit, EX (15m) RADHA KENNEDY HOUSE SITTER Jul 27, 2016 14:59
[2016-07-27] MEDS: MELATONIN 3 MG TABLET PO PRN (20:23)
[2016-07-27] MEDS: diphenhydrAMINE 25 MG TAB (BENADRYL) PO PRN (20:23)
[2016-07-28] VITALS: BP 138/76
[2016-07-28] MEDS: RT-ALBUTEROL/IPRATROPIUM 3 ML (DUONEB) VIAL INH SCH ×6 (02:00→22:07)
[2016-07-28 04:00] VITALS: BP 136/80
[2016-07-28] MEDS: methylPREDNISolone 40 MG/ML (Solu-MEDROL) VIAL IV SCH ×3 (05:52→18:34)
[2016-07-28 06:14] LABS: BASOPHILS % (AUTO) 0 % (0-10); EOSINOPHILS % (AUTO) 0 % (0-10); LYMPHOCYTES # (AUTO) 0.9 X 10^3 (1.0-4.0); LYMPHOCYTES % (AUTO) 21 % (12-44); MEAN CORPUSCULAR HEMOGLOBIN 30 PG (25-34); MEAN CORPUSCULAR HGB CONC 32 G/DL (32-36); MEAN CORPUSCULAR VOLUME 93 FL (80-99); MEAN PLATELET VOLUME 10.7 FL (7.4-10.4); MONOCYTES # (AUTO) 0.5 X 10^3 (0.0-1.0); MONOCYTES % (AUTO) 12 % (0-12); NEUTROPHILS # (AUTO) 2.7 X 10^3 (1.8-7.8); NEUTROPHILS % (AUTO) 66 % (42-75); PLATELET COUNT 124 10^3/uL (130-400); RED BLOOD COUNT 5.74 10^6/uL (4.35-5.85); RED CELL DISTRIBUTION WIDTH 14.7 % (10.0-14.5); WHITE BLOOD COUNT 4.1 10^3/uL (4.3-11.0)
[2016-07-28] MEDS: CATHETER FLUSH 10 ML SYR IV SCH ×3 (06:25→20:12)
[2016-07-28 06:38] LABS: ANION GAP 10 MMOL/L (5-14); BLOOD UREA NITROGEN 18 MG/DL (7-18); BUN/CREATININE RATIO 27; CALCIUM 9.2 MG/DL (8.5-10.1); CARBON DIOXIDE 30 MMOL/L (21-32); CHLORIDE 97 MMOL/L (98-107); CREATININE SERUM 0.66 MG/DL (0.60-1.30); GFR ESTIMATED > 60; GLUCOSE 82 MG/DL (70-105); MAGNESIUM 1.9 MG/DL (1.8-2.4); PHOSPHORUS 3.8 MG/DL (2.3-4.7); POTASSIUM 4.1 MMOL/L (3.6-5.0); SODIUM 137 MMOL/L (135-145)
[2016-07-28] MEDS: RT-BUDESONIDE NEBS 0.5 MG/2ML (PULMICORT) AMP INH SCH ×2 (06:51→18:33)
[2016-07-28 08:00] VITALS: BP 133/72
[2016-07-28] MEDS: CATHETER FLUSH 10 ML SYR IV PRN ×2 (08:43→20:12)
[2016-07-28] MEDS: PANTOPRAZOLE 40 MG/10 ML (PROTONIX) VIAL IV SCH (08:43)
[2016-07-28] MEDS: POLYETHYLENE GLYCOL 17 GM (MIRALAX) PACK PO SCH ×2 (08:43→20:12)
--- NOTE | 2016-07-28 09:19 | Physical Therapy Daily Note ---
PT Daily Note-Current Subjective Patient is wanting to stand and agrees to PT. Pain Numeric Pain Scale: 0-No Pain Location: No Pain Reported Mental Status Patient Orientation: Person, Time, Situation Attachments: Oxygen Transfers Functional [place] Measure 0=Not Assessed/NA 4=Minimal Assistance 1=Total Assistance 5=Supervision or Setup 2=Maximal Assistance 6=Modified [place] 3=Moderate Assistance 7=Complete IndependenceIRFPAI Quality Coding Scale 6 Independent with activity with or without an assistive device 5 Patient requires set up or clean up by helper. Patient completes activity by themselves 4 Supervision or touching assist (CGA). [place] provide cues , steadying assist 3 The helper provides less than half the effort to complete the activity 2 The helper provides more than half the effort to complete the activity 1 Dependent. The helper does all the effort to complete an activity 7 Patient refused to complete or attempt activity 9 The patient did not perform the activity before the current illness or injury 88 Not attempted due to Medical conditions or safety concerns Transfers (B, C, W/C) (FIM): 5 Scootin Sit to/from Stand: 5 Exercises Standing: Marching (20 reps x 4 sets) Assessment Patient improving with treatment. PT to increase activity as patient tolerates. PT Custodial Goals Art Instructor Goals PT Art Instructor Goals Time Frame: Jul 30, 2016 Transfers (B,C,W/C) (FIM): 4 Gait (FIM): 1 Gait distance (FIM): 1=up to 49 ft Distance: 5' Gait Level of Assist: 4 Gait Assistive Device: FWW PT Plan Treatment/Plan Treatment Plan: Continue Plan of Care Treatment Plan: Bed Mobility, Education, Functional Activity Ty, Functional Strength, Gait, Safety, Therapeutic Exercise, Transfers Treatment Duration: Jul 30, 2016 Visits Per Week: 5 Time/GCodes Time In: 835 Time Out: 845 Total Billed Treatment Time: 10 Total Billed Treatment 1 visit EX 10 min LES PYLE PT Jul 28, 2016 09:19
[2016-07-28] MEDS ORDERED: [UNRECOGNIZED DRUG - OTHER] IM SCH (09:30)
[2016-07-28] MEDS ORDERED: PALIPERIDONE PALMITATE IM SCH (09:30)
--- NOTE | 2016-07-28 10:09 | Occupational Ther Daily Note ---
OT Current Status-Daily Note Subjective Nrsg present in room when OT entered. Pt agreed to therapy. No c/o pain at this time. Mental Status/Objective Functional [place] Measure 0=Not Assessed/NA 4=Minimal Assistance 1=Total Assistance 5=Supervision or Setup 2=Maximal Assistance 6=Modified [place] 3=Moderate Assistance 7=Complete [place] Other Treatment Pt alert and sitting up in recliner. Pt hard to understand due to his talking very softly. Pt completed 4 UE exercises against gravity, 1 set 10x with LOB during each and recovery time needed between each. Then was able to demonstrate ability to reach to feet and sit back up, light headed after attempt. After therapy, pt sitting in recliner with call light/phone in reach. All needs met in room. OT Short Term Goals Short Term Goals 1=Demonstrate adherence to instructed precautions during ADL tasks. 2=Patient will verbalize/demonstrate understanding of assistive devices/ modifications for ADL. 3=Patient will improve strength/tolerance for activity to enable patient to perform ADL's. OT Long-Term Goals Long-Term Goals Time Frame: Aug 07, 2016 Eating (FIM): 6 Grooming(FIM): 6 Bathing(FIM): 5 Upper Body Dressing(FIM): 5 Lower Body Dressing(FIM): 5 Toileting(FIM): 5 Toilet/Commode Transfer(FIM): 5 Shower Transfer(FIM): 5 1=Demonstrate adherence to instructed precautions during ADL tasks. 2=Patient will verbalize/demonstrate understanding of assistive devices/ modifications for ADL. 3=Patient will improve strength/tolerance for activity to enable patient to perform ADL's. OT Education/Plan Problem List/Assessment Pt would benefit from skilled OT to increase his independence in basic self care to allow him to return to his home or to least restrictive environment and to decrease caregiver burden Discharge Recommendations Plan/Recommendations: Continue POC Treatment Plan/Plan of Care Patient would benefit from OT for education, treatment and training to promote independence in ADL's, mobility, safety and/or upper extremity function for ADL' s. Plan of Care: ADL Retraining, Functional Mobility, UE Funct Exercise/Act, UE Neuromus Re-Ed/Coord Treatment Duration: Aug 07, 2016 Visits Per Week: 5-6 Agreement: Yes Rehab Potential: Poor Time/GCodes Start Time: 09:55 Stop Time: 10:10 Total Time Billed (hr/min): 15 Billed Treatment Time 1 visit-FA 1 (15 min) MICHAEL KENNEDY Jul 28, 2016 10:09
--- NOTE | 2016-07-28 11:47 | Progress Note-Hospitalist ---
Standard Progress Note Progress Notes/Assess & Plan Date Seen 07/28/16 Diagnosis Assessment: VDRF Day # 2 now extubated Severe COPD with continued smoking 4ppd H/O pneumonia 09/27 H/O Volume overload 09/27 Long-standing mental illness: Schizophrenia Hypertension Hyperlipidemia Pleural effusion h/o 09/27 Assess & Plan/Chief Complaint The patient has been transferred to fourth floor. He appears quite comfortable in his room. He is sitting up in the chair at the time of exam. He states that physical therapy has been working with him. He exhibits a thick extruded tongue with a chewing motion consistent with tardive dyskinesia. His brother brought his inVega which she takes IM monthly for the management of his schizophrenia. Physical exam: Lungs show distant breath sounds without wheezing. CV is regular without murmur. Abdomen is obese. Extremities show no pedal edema. Impression: End-stage COPD with recent intubation and ventilator therapy. 2. 24 hour per day oxygen requirement. 3.schizophrenia. 4.marked physical deconditioning. Plan: Physical therapy as tolerated. He is a high risk for repeat ventilatory failure Labs Laboratory Tests 07/27/16 04:07 07/28/16 05:27 MARCO JANSEN MD Jul 28, 2016 11:47
[2016-07-28 12:00] VITALS: BP 137/68
[2016-07-28 16:00] VITALS: BP 134/73
[2016-07-28] MEDS: PANTOPRAZOLE 40 MG (PROTONIX) TAB PO SCH (16:26)
[2016-07-28 20:00] VITALS: BP 143/79
[2016-07-28] MEDS: diphenhydrAMINE 25 MG TAB (BENADRYL) PO PRN (20:12)
[2016-07-28] MEDS: MELATONIN 3 MG TABLET PO PRN (20:12)
[2016-07-29] VITALS: BP 118/57
[2016-07-29] MEDS: methylPREDNISolone 40 MG/ML (Solu-MEDROL) VIAL IV SCH ×3 (00:46→16:35)
[2016-07-29] MEDS: RT-ALBUTEROL/IPRATROPIUM 3 ML (DUONEB) VIAL INH SCH ×6 (02:20→22:07)
[2016-07-29 04:00] VITALS: BP 137/63
[2016-07-29] MEDS: CATHETER FLUSH 10 ML SYR IV SCH ×3 (05:57→20:08)
[2016-07-29] MEDS: PANTOPRAZOLE 40 MG (PROTONIX) TAB PO SCH ×2 (05:58→15:17)
[2016-07-29] MEDS: CATHETER FLUSH 10 ML SYR IV PRN ×2 (05:58→20:09)
[2016-07-29 06:03] LABS: BASOPHILS % (AUTO) 0 % (0-10); EOSINOPHILS % (AUTO) 0 % (0-10); LYMPHOCYTES # (AUTO) 0.4 X 10^3 (1.0-4.0); LYMPHOCYTES % (AUTO) 14 % (12-44); MEAN CORPUSCULAR HEMOGLOBIN 30 PG (25-34); MEAN CORPUSCULAR HGB CONC 32 G/DL (32-36); MEAN CORPUSCULAR VOLUME 93 FL (80-99); MEAN PLATELET VOLUME 10.6 FL (7.4-10.4); MONOCYTES # (AUTO) 0.3 X 10^3 (0.0-1.0); MONOCYTES % (AUTO) 10 % (0-12); NEUTROPHILS # (AUTO) 2.2 X 10^3 (1.8-7.8); NEUTROPHILS % (AUTO) 76 % (42-75); PLATELET COUNT 136 10^3/uL (130-400); RED CELL DISTRIBUTION WIDTH 14.7 % (10.0-14.5); WHITE BLOOD COUNT 2.9 10^3/uL (4.3-11.0)
[2016-07-29 06:27] LABS: ANION GAP 10 MMOL/L (5-14); BLOOD UREA NITROGEN 15 MG/DL (7-18); BUN/CREATININE RATIO 23; CALCIUM 9.1 MG/DL (8.5-10.1); CARBON DIOXIDE 31 MMOL/L (21-32); CHLORIDE 99 MMOL/L (98-107); CREATININE SERUM 0.64 MG/DL (0.60-1.30); GFR ESTIMATED > 60; GLUCOSE 105 MG/DL (70-105); PHOSPHORUS 3.8 MG/DL (2.3-4.7); POTASSIUM 4.5 MMOL/L (3.6-5.0); SODIUM 140 MMOL/L (135-145)
[2016-07-29] MEDS: RT-BUDESONIDE NEBS 0.5 MG/2ML (PULMICORT) AMP INH SCH ×2 (07:21→19:09)
--- NOTE | 2016-07-29 07:50 | Pulmonary Progress Note ---
Subjective Subjective/Events-last exam PT still requiring a lot of Oxygen Exam Exam Vital Signs Date Time Temp Pulse Resp B/P Pulse Ox O2 Delivery O2 Flow Rate FiO2 07/29/16 07:25 95 20.00 65 07/29/16 07:17 94 20.00 75 07/29/16 04:00 98.3 52 16 137/63 92 FIO2 75.00 07/29/16 02:20 92 20.00 75 07/29/16 00:00 98.5 55 20 118/57 97 FIO2 75.00 07/28/16 20:15 Nasal Cannula 20.00 75 07/28/16 20:00 97.9 53 20 143/79 95 High Flow NC 75.00 25.00 07/28/16 18:33 94 20.00 75 07/28/16 16:00 97.3 55 22 134/73 96 High Flow NC 75.00 25.00 07/28/16 14:54 93 20.00 75 07/28/16 12:00 98.0 58 20 137/68 94 High Flow NC 75.00 25.00 07/28/16 11:13 97 20.00 75 07/28/16 08:00 98.2 64 24 133/72 93 High Flow NC 75.00 25.00 07/28/16 08:00 Nasal Cannula 20.00 75 I & O 07/29/16 07:00 Intake Total 2600 ml Output Total 4900 ml Balance -2300 ml General Appearance: No Apparent Distress Chronically ill Obese Other (on ventilator) HEENT: PERRL/EOMI Neck: Normal Inspection Respiratory: Crackles Decreased Breath Sounds Wheezing Cardiovascular: Regular Rate, Rhythm No Edema No Gallop No JVD No Murmur Capillary Refill: Less Than 3 Seconds Extremity: Swelling Neurologic/Psychiatric: Other (sedated on ventilator) Skin: Normal Color Warm/Dry Lymphatic: No Adenopathy Results Lab Laboratory Tests 07/28/16 05:27 07/29/16 05:25 07/29/16 05:28 Assessment/Plan Assessment/Plan Acute on chronic respiratory failure requiring ventilator with ARDS vs CHF -He is requiring 60% oxygen via thermaflow -SVNs duoneb and pulmicort bilateral infiltrates probably aspiration pneumonia -Abx are now D/C'd Severe COPD/emphysema -SVNs -solumedrol tobacco dependance -education Obesity with probable JEN Clinical Quality Measures DVT/VTE Risk/Contraindication: Risk Factor Score Per Nursin RFS Level Per Nursing on Admit: 4+=Very High AMAIRANI LOMBARDO DO Jul 29, 2016 07:50 AMAIRANI LOMBARDO DO Jul 29, 2016 07:50
[2016-07-29 08:00] VITALS: BP 184/86
[2016-07-29] MEDS: FUROSEMIDE 40 MG/4 ML INJ (LASIX) IVP SCH (08:41)
[2016-07-29] MEDS: POLYETHYLENE GLYCOL 17 GM (MIRALAX) PACK PO SCH ×2 (08:42→20:06)
--- NOTE | 2016-07-29 10:18 | Progress Note-Hospitalist ---
Progress Note HPI/CC on Admission CC: Respiratory failure HPI: Dr. Haddad at [facility] called be at 2300 last night to report need for transfer to higher level of care. ABG showed 7.29/79/59 and failed BiPAP so I gave orders for intubation prior to transfer. Pt on Zosyn, empirically, and maintained on vent at 580/25/15/60%. 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 Pt was seen by Dr. Hernandez. Pt is on Zosyn and steroids. Patient Interview: Physical exam stable Scribed by Harshal Shah under the direct supervision of Dr. Walsh. Progress Notes/Assess & Plan Date Seen 07/29/16 Admission Dx/Process Assessment: VDRF Day # 2 now extubated Severe COPD with continued smoking 4ppd H/O pneumonia 09/27 H/O Volume overload 09/27 Long-standing mental illness: Schizophrenia Hypertension Hyperlipidemia Pleural effusion h/o 09/27 Diagonsis/Assessment & Plan Chart Review: WBC 2.9 CMP normal Patient Interview: Pt states that he feels ok. Pt states that he is breathing slightly better today. Physical exam stable. Pt states that he has some pain in his chest. Pt denies having BMs. No fever, vital signs stable, awake Regular rate and rhythm, wheezes to auscultation Assessment: s/p VDRF now extubated but requiring hi-leeanna O2 Severe COPD with continued smoking 4ppd H/O pneumonia 09/27 H/O Volume overload 09/27 Long-standing mental illness: Schizophrenia Hypertension Hyperlipidemia Pleural effusion h/o 09/27 Social issues Plan: LTAC when accepted by insurance Maintain IV steroids but titrate down Maintain oxygen supplementation Nebulizer treatments Scribed by Harshal Shah under the direct supervision of Dr. Walsh. SILVIO WALSH DO Jul 29, 2016 10:18 Scribed by Harshal Shah under the direct supervision of Dr. Walsh. SILVIO WALSH DO Jul 29, 2016 10:18
--- NOTE | 2016-07-29 10:20 | Physical Therapy Daily Note ---
PT Daily Note-Current Subjective Patient continues to be attached to the thermaflow for O2. He agrees to PT. Pain Numeric Pain Scale: 0-No Pain Location: No Pain Reported Mental Status Patient Orientation: Person, Time, Situation Attachments: Oxygen Transfers Functional [place] Measure 0=Not Assessed/NA 4=Minimal Assistance 1=Total Assistance 5=Supervision or Setup 2=Maximal Assistance 6=Modified [place] 3=Moderate Assistance 7=Complete IndependenceIRFPAI Quality Coding Scale 6 Independent with activity with or without an assistive device 5 Patient requires set up or clean up by helper. Patient completes activity by themselves 4 Supervision or touching assist (CGA). [place] provide cues , steadying assist 3 The helper provides less than half the effort to complete the activity 2 The helper provides more than half the effort to complete the activity 1 Dependent. The helper does all the effort to complete an activity 7 Patient refused to complete or attempt activity 9 The patient did not perform the activity before the current illness or injury 88 Not attempted due to Medical conditions or safety concerns Transfers (B, C, W/C) (FIM): 6 Sit to/from Stand: 6 Exercises Standing: Marching (4 sets x 30 reps with use of FWW) Standing Reps: 30 Assessment Patient tolerated treatment, however, displays cyanotic lips with activity requiring sitting recovery periods. PT to increase activity as tolerated by patient. PT [employer] Goals Alf Goals PT Alf Goals Time Frame: Jul 30, 2016 Transfers (B,C,W/C) (FIM): 4 Gait (FIM): 1 Gait distance (FIM): 1=up to 49 ft Distance: 5' Gait Level of Assist: 4 Gait Assistive Device: FWW PT Plan Treatment/Plan Treatment Plan: Continue Plan of Care Treatment Plan: Bed Mobility, Education, Functional Activity Ty, Functional Strength, Gait, Safety, Therapeutic Exercise, Transfers Treatment Duration: Jul 30, 2016 Visits Per Week: 5 Time/GCodes Time In: 940 Time Out: 950 Total Billed Treatment Time: 10 Total Billed Treatment 1 visit EX 10 min LES PYLE PT Jul 29, 2016 10:20
[2016-07-29] MEDS: ENOXAPARIN 40 MG/0.4 ML (LOVENOX) SYR SC SCH (11:05)
[2016-07-29 12:49] VITALS: BP 150/72
--- NOTE | 2016-07-29 14:31 | Occupational Ther Daily Note ---
OT Current Status-Daily Note Subjective Pt seen in room, up in recliner, agreeable to OT. No pain mentioned. Appearance Alert, cooperative Mental Status/Objective Functional [place] Measure 0=Not Assessed/NA 4=Minimal Assistance 1=Total Assistance 5=Supervision or Setup 2=Maximal Assistance 6=Modified [place] 3=Moderate Assistance 7=Complete [place] Other Treatment Pt was able to reach forward or cross legs to put slipper socks on with setup. He also could elevate the foot rests of recliner himself. Pt did 10 reps bilat UE exercise without additional resistance, requiring recovery period between each different exercise. He could track repetitions and count along. Exercise to increase activity tolerance for basic self care needs and for transfers. Pt left up in recliner, O2 in place, all needs met. Education OT Patient Education: Exercise program Teaching Recipient: Patient Teaching Methods: Demonstration Response to Teaching: Return Demonstration, Reinforcement Needed OT Short Term Goals Short Term Goals 1=Demonstrate adherence to instructed precautions during ADL tasks. 2=Patient will verbalize/demonstrate understanding of assistive devices/ modifications for ADL. 3=Patient will improve strength/tolerance for activity to enable patient to perform ADL's. OT [facility] Goals [facility] Goals Time Frame: Aug 07, 2016 Eating (FIM): 6 Grooming(FIM): 6 Bathing(FIM): 5 Upper Body Dressing(FIM): 5 Lower Body Dressing(FIM): 5 Toileting(FIM): 5 Toilet/Commode Transfer(FIM): 5 Shower Transfer(FIM): 5 1=Demonstrate adherence to instructed precautions during ADL tasks. 2=Patient will verbalize/demonstrate understanding of assistive devices/ modifications for ADL. 3=Patient will improve strength/tolerance for activity to enable patient to perform ADL's. OT Education/Plan Problem List/Assessment Pt would benefit from skilled OT to increase his independence in basic self care to allow him to return to his home or to least restrictive environment and to decrease caregiver burden Discharge Recommendations Plan/Recommendations: Continue POC Treatment Plan/Plan of Care Patient would benefit from OT for education, treatment and training to promote independence in ADL's, mobility, safety and/or upper extremity function for ADL' s. Plan of Care: ADL Retraining, Functional Mobility, UE Funct Exercise/Act, UE Neuromus Re-Ed/Coord Treatment Duration: Aug 07, 2016 Visits Per Week: 5-6 Agreement: Yes Rehab Potential: Poor Time/GCodes Start Time: 13:40 Stop Time: 13:55 Total Time Billed (hr/min): 15 Billed Treatment Time visit, 15 minutes exercise ROCCO RAE OT Jul 29, 2016 14:31
[2016-07-29 16:37] VITALS: BP 144/68
[2016-07-29] MEDS: diphenhydrAMINE 25 MG TAB (BENADRYL) PO PRN (20:06)
[2016-07-29] MEDS: MELATONIN 3 MG TABLET PO PRN (20:06)
[2016-07-29 20:51] VITALS: BP 136/68
[2016-07-30] VITALS: BP 125/61
[2016-07-30] MEDS: RT-ALBUTEROL/IPRATROPIUM 3 ML (DUONEB) VIAL INH SCH ×6 (02:15→22:07)
[2016-07-30 04:00] VITALS: BP 137/70
[2016-07-30] MEDS: ACETAMINOPHEN 325 MG TABLET/CAPLET (TYLENOL) PO PRN (04:02)
[2016-07-30 05:19] LABS: BASOPHILS % (AUTO) 0 % (0-10); EOSINOPHILS % (AUTO) 1 % (0-10); LYMPHOCYTES # (AUTO) 1.3 X 10^3 (1.0-4.0); LYMPHOCYTES % (AUTO) 26 % (12-44); MEAN CORPUSCULAR HEMOGLOBIN 30 PG (25-34); MEAN CORPUSCULAR HGB CONC 32 G/DL (32-36); MEAN CORPUSCULAR VOLUME 92 FL (80-99); MEAN PLATELET VOLUME 11.2 FL (7.4-10.4); MONOCYTES # (AUTO) 0.5 X 10^3 (0.0-1.0); MONOCYTES % (AUTO) 10 % (0-12); NEUTROPHILS # (AUTO) 3.2 X 10^3 (1.8-7.8); NEUTROPHILS % (AUTO) 64 % (42-75); PLATELET COUNT 148 10^3/uL (130-400); RED BLOOD COUNT 5.92 10^6/uL (4.35-5.85); RED CELL DISTRIBUTION WIDTH 14.6 % (10.0-14.5)
[2016-07-30 05:34] LABS: ANION GAP 12 MMOL/L (5-14); BLOOD UREA NITROGEN 16 MG/DL (7-18); BUN/CREATININE RATIO 24; CALCIUM 9.4 MG/DL (8.5-10.1); CARBON DIOXIDE 31 MMOL/L (21-32); CHLORIDE 96 MMOL/L (98-107); CREATININE SERUM 0.67 MG/DL (0.60-1.30); GFR ESTIMATED > 60; GLUCOSE 81 MG/DL (70-105); MAGNESIUM 1.9 MG/DL (1.8-2.4); POTASSIUM 3.9 MMOL/L (3.6-5.0); SODIUM 139 MMOL/L (135-145)
[2016-07-30] MEDS: methylPREDNISolone 40 MG/ML (Solu-MEDROL) VIAL IV SCH ×2 (05:47→18:19)
[2016-07-30] MEDS: CATHETER FLUSH 10 ML SYR IV SCH ×3 (05:47→20:08)
[2016-07-30] MEDS: PANTOPRAZOLE 40 MG (PROTONIX) TAB PO SCH ×2 (05:50→16:41)
[2016-07-30 08:00] VITALS: BP 143/72
--- NOTE | 2016-07-30 08:12 | Pulmonary Progress Note ---
Subjective Subjective/Events-last exam PT feels improved. He is coughing up yellow sputum Exam Exam Vital Signs Date Time Temp Pulse Resp B/P Pulse Ox O2 Delivery O2 Flow Rate FiO2 07/30/16 04:00 96.4 56 21 137/70 92 FIO2 65.00 15.00 07/30/16 02:16 92 15.00 65 07/30/16 00:00 98.7 65 21 125/61 90 FIO2 65.00 15.00 07/29/16 22:08 88 15.00 55 07/29/16 21:00 Nasal Cannula 20.00 55 07/29/16 20:51 99.5 60 18 136/68 91 FIO2 75.00 07/29/16 19:14 15.00 55 07/29/16 19:11 92 15.00 55 07/29/16 16:37 97.9 55 18 144/68 91 FIO2 75.00 07/29/16 15:27 93 15.00 55 07/29/16 12:49 96.4 57 16 150/72 94 FIO2 75.00 07/29/16 11:41 94 20.00 65 07/29/16 09:00 Nasal Cannula 20.00 65 I & O 07/30/16 07:00 Intake Total 3900 ml Output Total 5075 ml Balance -1175 ml General Appearance: No Apparent Distress Chronically ill Obese Other (on ventilator) HEENT: PERRL/EOMI Neck: Normal Inspection Respiratory: Crackles Decreased Breath Sounds Wheezing Cardiovascular: Regular Rate, Rhythm No Edema No Gallop No JVD No Murmur Capillary Refill: Less Than 3 Seconds Extremity: Swelling Neurologic/Psychiatric: Other (sedated on ventilator) Skin: Normal Color Warm/Dry Lymphatic: No Adenopathy Results Lab Laboratory Tests 07/29/16 05:25 07/29/16 05:28 07/30/16 04:31 Assessment/Plan Assessment/Plan Acute on chronic respiratory failure requiring ventilator with ARDS vs CHF -He is requiring 60% oxygen via thermaflow -SVNs duoneb and pulmicort -lasix 40mg daily -PT is awaiting LTAC bed bilateral infiltrates probably aspiration pneumonia -Abx are now D/C'd -Repeat CXR Severe COPD/emphysema -SVNs -solumedrol tobacco dependance -education Obesity with probable JEN Clinical Quality Measures DVT/VTE Risk/Contraindication: Risk Factor Score Per Nursin RFS Level Per Nursing on Admit: 4+=Very High AMAIRANI LOMBARDO DO Jul 30, 2016 08:12
[2016-07-30] MEDS: FUROSEMIDE 40 MG/4 ML INJ (LASIX) IVP SCH (09:49)
[2016-07-30] MEDS: POLYETHYLENE GLYCOL 17 GM (MIRALAX) PACK PO SCH ×2 (09:50→20:07)
[2016-07-30] MEDS: ENOXAPARIN 40 MG/0.4 ML (LOVENOX) SYR SC SCH (09:50)
--- NOTE | 2016-07-30 10:07 | Progress Note-Hospitalist ---
Progress Note HPI/CC on Admission CC: Respiratory failure HPI: [place]add[place] [facility] [place] 2300 last night to report need for transfer to higher level of care. ABG showed 7.29/79/59 and failed BiPAP so I gave orders for intubation prior to transfer. Pt on Zosyn, empirically, and maintained on vent at 580/25/15/60%. 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 Pt was seen by Dr. Hernandez. Pt is on Zosyn and steroids. Patient Interview: Physical exam stable Scribed by Harshal Shah under the direct supervision of Dr. Walsh. Progress Notes/Assess & Plan Date Seen 07/30/16 Admission Dx/Process Assessment: VDRF Day # 2 now extubated Severe COPD with continued smoking 4ppd H/O pneumonia 09/27 H/O Volume overload 09/27 Long-standing mental illness: Schizophrenia Hypertension Hyperlipidemia Pleural effusion h/o 09/27 Diagonsis/Assessment & Plan Chart Review: WBC 5.0 CMP normal Patient Interview: Pt states that he feels ok. Pt states that he is breathing slightly better today. Physical exam stable. Pt reports having BMs. No fever, vital signs stable, awake Regular rate and rhythm, wheezes to auscultation trace edema lower legs Assessment: s/p VDRF now extubated but requiring hi-leeanna O2 Severe COPD with continued smoking 4ppd H/O pneumonia 09/27 H/O Volume overload 09/27 Long-standing mental illness: Schizophrenia Hypertension Hyperlipidemia Pleural effusion h/o 09/27 Social issues Plan: LTAC when accepted by insurance Maintain IV steroids but titrate down Maintain oxygen supplementation Nebulizer treatments SILVIO WALSH DO Jul 30, 2016 10:07
[2016-07-30] MEDS: RT-BUDESONIDE NEBS 0.5 MG/2ML (PULMICORT) AMP INH SCH ×2 (11:15→22:07)
--- NOTE | 2016-07-30 11:56 | Physical Therapy Daily Note ---
PT Daily Note-Current Subjective Patient agrees to OOB and PT. Pain Numeric Pain Scale: 0-No Pain Location: No Pain Reported Mental Status Patient Orientation: Person, Time, Situation Attachments: Oxygen (thermaflow) Transfers Functional [place] Measure 0=Not Assessed/NA 4=Minimal Assistance 1=Total Assistance 5=Supervision or Setup 2=Maximal Assistance 6=Modified [place] 3=Moderate Assistance 7=Complete IndependenceIRFPAI Quality Coding Scale 6 Independent with activity with or without an assistive device 5 Patient requires set up or clean up by helper. Patient completes activity by themselves 4 Supervision or touching assist (CGA). [place] provide cues , steadying assist 3 The helper provides less than half the effort to complete the activity 2 The helper provides more than half the effort to complete the activity 1 Dependent. The helper does all the effort to complete an activity 7 Patient refused to complete or attempt activity 9 The patient did not perform the activity before the current illness or injury 88 Not attempted due to Medical conditions or safety concerns Transfers (B, C, W/C) (FIM): 6 Scootin Rollin Supine to/from Sit: 6 Sit to/from Stand: 6 Bed to/from Chair: 6 Exercises Standing: Marching (30 reps x 5 sets with sit to stand transfer training to FWW with each set) Assessment Patient improving with treatment and desires to ambulate. PT will increase activity as tolerated by patient. PT Detention Goals Account Executive Sales Representative Goals PT Account Executive Sales Representative Goals Time Frame: Jul 30, 2016 Transfers (B,C,W/C) (FIM): 4 Gait (FIM): 1 Gait distance (FIM): 1=up to 49 ft Distance: 5' Gait Level of Assist: 4 Gait Assistive Device: FWW Patient has attained functional goals. New goals to be set 1.) Transfers 6; Gait 6; distance 150' with FWW Time Frame 08/07/16 PT Plan Treatment/Plan Treatment Plan: Continue Plan of Care Treatment Plan: Bed Mobility, Education, Functional Activity Ty, Functional Strength, Gait, Safety, Therapeutic Exercise, Transfers Treatment Duration: Aug 07, 2016 # of days/week 5-6 Visits Per Week: 5-6 Time/GCodes Time In: 1115 Time Out: 1130 Total Billed Treatment Time: 15 Total Billed Treatment 1 visit EX 15 min LES PYLE PT Jul 30, 2016 11:55
[2016-07-30 12:00] VITALS: BP 161/75
--- NOTE | 2016-07-30 13:14 | Occupational Ther Daily Note ---
OT Current Status-Daily Note Subjective Pt alert, sitting up in recliner eating lunch. Pt agreed to therapy. No c/o pain. Mental Status/Objective Patient Orientation: Person Functional [place] Measure 0=Not Assessed/NA 4=Minimal Assistance 1=Total Assistance 5=Supervision or Setup 2=Maximal Assistance 6=Modified [place] 3=Moderate Assistance 7=Complete [place] Attachments: IV, Oxygen ADL-Treatment Pt able to cross legs and don/doff each sock by self. After therapy, pt sitting in recliner with call light/phone in reach. All needs met in room. Eating (FIM): 6 (Pt was able to complete own set up for lunch then using regular utensils to cut, spread and feed self.) OT Short Term Goals Short Term Goals 1=Demonstrate adherence to instructed precautions during ADL tasks. 2=Patient will verbalize/demonstrate understanding of assistive devices/ modifications for ADL. 3=Patient will improve strength/tolerance for activity to enable patient to perform ADL's. OT Retirement Goals [employer] Goals Time Frame: Aug 07, 2016 Eating (FIM): 6 Grooming(FIM): 6 Bathing(FIM): 5 Upper Body Dressing(FIM): 5 Lower Body Dressing(FIM): 5 Toileting(FIM): 5 Toilet/Commode Transfer(FIM): 5 Shower Transfer(FIM): 5 1=Demonstrate adherence to instructed precautions during ADL tasks. 2=Patient will verbalize/demonstrate understanding of assistive devices/ modifications for ADL. 3=Patient will improve strength/tolerance for activity to enable patient to perform ADL's. OT Education/Plan Problem List/Assessment Pt would benefit from skilled OT to increase his independence in basic self care to allow him to return to his home or to least restrictive environment and to decrease caregiver burden Discharge Recommendations Plan/Recommendations: Continue POC Treatment Plan/Plan of Care Patient would benefit from OT for education, treatment and training to promote independence in ADL's, mobility, safety and/or upper extremity function for ADL' s. Plan of Care: ADL Retraining, Functional Mobility, UE Funct Exercise/Act, UE Neuromus Re-Ed/Coord Treatment Duration: Aug 07, 2016 Visits Per Week: 5-6 Agreement: Yes Rehab Potential: Poor Time/GCodes Start Time: 11:35 Stop Time: 11:50 Total Time Billed (hr/min): 15 Billed Treatment Time 1 visit-FA 1 (15 min) MICHAEL KENNEDY Jul 30, 2016 13:14
--- NOTE | 2016-07-30 14:12 | Diagnostic Imaging Report ---
INDICATION: Pneumonia. COMPARISON: 07/27/2016. FINDINGS: Bilateral lower lobe infiltrates are compatible with pneumonia and not substantially changed from prior. There is no evidence for pleural fluid. Heart size is at the upper limits but stable. No gross overdistention of vascularity. IMPRESSION: Bilateral lower lobe infiltrates are not significantly changed. No apparent pleural fluid. Dictated by: Dictated on workstation # [id number]
[2016-07-30 16:00] VITALS: BP 138/73
[2016-07-30 20:00] VITALS: BP 145/71
[2016-07-30] MEDS: diphenhydrAMINE 25 MG TAB (BENADRYL) PO PRN (20:07)
[2016-07-30] MEDS: MELATONIN 3 MG TABLET PO PRN (20:07)
[2016-07-31 00:43] VITALS: BP 124/67
[2016-07-31] MEDS: RT-ALBUTEROL/IPRATROPIUM 3 ML (DUONEB) VIAL INH SCH ×6 (02:41→22:07)
[2016-07-31 05:16] LABS: BASOPHILS % (AUTO) 0 % (0-10); EOSINOPHILS % (AUTO) 0 % (0-10); LYMPHOCYTES % (AUTO) 12 % (12-44); MEAN CORPUSCULAR HEMOGLOBIN 30 PG (25-34); MEAN CORPUSCULAR HGB CONC 33 G/DL (32-36); MEAN CORPUSCULAR VOLUME 92 FL (80-99); MEAN PLATELET VOLUME 10.6 FL (7.4-10.4); MONOCYTES # (AUTO) 0.7 X 10^3 (0.0-1.0); MONOCYTES % (AUTO) 7 % (0-12); NEUTROPHILS # (AUTO) 7.2 X 10^3 (1.8-7.8); NEUTROPHILS % (AUTO) 81 % (42-75); PLATELET COUNT 161 10^3/uL (130-400); RED CELL DISTRIBUTION WIDTH 14.8 % (10.0-14.5); WHITE BLOOD COUNT 8.9 10^3/uL (4.3-11.0)
[2016-07-31 05:22] LABS: ANION GAP 10 MMOL/L (5-14); BLOOD UREA NITROGEN 14 MG/DL (7-18); BUN/CREATININE RATIO 21; CALCIUM 9.5 MG/DL (8.5-10.1); CARBON DIOXIDE 32 MMOL/L (21-32); CHLORIDE 98 MMOL/L (98-107); CREATININE SERUM 0.66 MG/DL (0.60-1.30); GFR ESTIMATED > 60; GLUCOSE 98 MG/DL (70-105); PHOSPHORUS 3.8 MG/DL (2.3-4.7); SODIUM 140 MMOL/L (135-145)
[2016-07-31] MEDS: CATHETER FLUSH 10 ML SYR IV SCH ×3 (06:44→20:37)
[2016-07-31] MEDS: PANTOPRAZOLE 40 MG (PROTONIX) TAB PO SCH ×2 (06:44→15:26)
[2016-07-31] MEDS: methylPREDNISolone 40 MG/ML (Solu-MEDROL) VIAL IV SCH (06:44)
--- NOTE | 2016-07-31 07:12 | Pulmonary Progress Note ---
Subjective Subjective/Events-last exam Pt is still requiring high amounts of oxygen Exam Exam Vital Signs Date Time Temp Pulse Resp B/P Pulse Ox O2 Delivery O2 Flow Rate FiO2 07/31/16 02:41 90 15.00 70 07/31/16 00:43 97.8 74 19 124/67 91 FIO2 65.00 15.00 07/30/16 22:07 91 15.00 65 07/30/16 21:00 Nasal Cannula 15.00 65 07/30/16 20:00 97.9 66 20 145/71 92 FIO2 65.00 15.00 07/30/16 19:34 91 15.00 65 07/30/16 16:00 98.1 57 20 138/73 93 FIO2 65.00 15.00 07/30/16 12:00 97.1 68 20 161/75 90 FIO2 65.00 15.00 07/30/16 11:16 90 15.00 65 07/30/16 09:30 Nasal Cannula 15.00 65 07/30/16 08:00 98.0 57 18 143/72 92 FIO2 65.00 15.00 I & O 07/31/16 07:00 Intake Total 2160 ml Output Total 2900 ml Balance -740 ml General Appearance: No Apparent Distress Chronically ill Obese Other (on ventilator) HEENT: PERRL/EOMI Neck: Normal Inspection Respiratory: Crackles Decreased Breath Sounds Wheezing Cardiovascular: Regular Rate, Rhythm No Edema No Gallop No JVD No Murmur Capillary Refill: Less Than 3 Seconds Extremity: Swelling Neurologic/Psychiatric: Other (sedated on ventilator) Skin: Normal Color Warm/Dry Lymphatic: No Adenopathy Results Lab Laboratory Tests 07/30/16 04:31 07/31/16 04:37 07/31/16 04:47 Assessment/Plan Assessment/Plan Acute on chronic respiratory failure requiring ventilator with ARDS vs CHF -He is requiring 60% oxygen via thermaflow -SVNs duoneb and pulmicort -lasix 40mg daily -PT is awaiting LTAC bed bilateral infiltrates probably aspiration pneumonia -Abx are now D/C'd Severe COPD/emphysema -SVNs -solumedrol tobacco dependance -education Obesity with probable JEN Clinical Quality Measures DVT/VTE Risk/Contraindication: Risk Factor Score Per Nursin RFS Level Per Nursing on Admit: 4+=Very High AMAIRANI LOMBARDO DO Jul 31, 2016 07:12
[2016-07-31] MEDS: RT-BUDESONIDE NEBS 0.5 MG/2ML (PULMICORT) AMP INH SCH ×2 (07:14→18:32)
[2016-07-31 08:00] VITALS: BP 143/77
[2016-07-31] MEDS: FUROSEMIDE 40 MG/4 ML INJ (LASIX) IVP SCH (08:43)
[2016-07-31] MEDS: POLYETHYLENE GLYCOL 17 GM (MIRALAX) PACK PO SCH ×2 (08:43→20:37)
[2016-07-31] MEDS: ENOXAPARIN 40 MG/0.4 ML (LOVENOX) SYR SC SCH (08:43)
--- NOTE | 2016-07-31 10:24 | Physical Therapy Daily Note ---
PT Daily Note-Current Subjective Patient is up in recliner and states, "I'm not having a good day." Does agree to attempt PT. Pain Numeric Pain Scale: 0-No Pain Location: No Pain Reported Mental Status Patient Orientation: Person, Time, Situation Attachments: Oxygen (thermaflow) Transfers Functional [place] Measure 0=Not Assessed/NA 4=Minimal Assistance 1=Total Assistance 5=Supervision or Setup 2=Maximal Assistance 6=Modified [place] 3=Moderate Assistance 7=Complete IndependenceIRFPAI Quality Coding Scale 6 Independent with activity with or without an assistive device 5 Patient requires set up or clean up by helper. Patient completes activity by themselves 4 Supervision or touching assist (CGA). [place] provide cues , steadying assist 3 The helper provides less than half the effort to complete the activity 2 The helper provides more than half the effort to complete the activity 1 Dependent. The helper does all the effort to complete an activity 7 Patient refused to complete or attempt activity 9 The patient did not perform the activity before the current illness or injury 88 Not attempted due to Medical conditions or safety concerns Transfers (B, C, W/C) (FIM): 5 Sit to/from Stand: 5 Exercises Standing: Marching (30 reps x 2 sets) Assessment Patient ceased treatment after 10 min due to increase SOA. Noted cyanosis of lips. Patient did recover after 2 minutes. PT [facility] Goals Controlled Area Checker Goals PT Controlled Area Checker Goals Time Frame: Jul 30, 2016 Transfers (B,C,W/C) (FIM): 4 Gait (FIM): 1 Gait distance (FIM): 1=up to 49 ft Distance: 5' Gait Level of Assist: 4 Gait Assistive Device: FWW PT Plan Treatment/Plan Treatment Plan: Continue Plan of Care Treatment Plan: Bed Mobility, Education, Functional Activity Ty, Functional Strength, Gait, Safety, Therapeutic Exercise, Transfers Treatment Duration: Aug 07, 2016 Visits Per Week: 5-6 Time/GCodes Time In: 930 Time Out: 940 Total Billed Treatment Time: 10 Total Billed Treatment 1 visit EX 10 min LES PYLE PT Jul 31, 2016 10:24
--- NOTE | 2016-07-31 10:35 | Progress Note-Hospitalist ---
Subjective HPI/CC On Admission CC: Respiratory failure HPI: Dr. Haddad at [facility] [place] called be at 2300 last night to report need for transfer to higher level of care. ABG showed 7.29/79/59 and failed BiPAP so I gave orders for intubation prior to transfer. Pt on Zosyn, empirically, and maintained on vent at 580/25/15/60%. 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 Pt was seen by Dr. Hernandez. Pt is on Zosyn and steroids. Patient Interview: Physical exam stable Scribed by Harshal Shah under the direct supervision of Dr. Zavaleta. Date Seen 07/31/16 Subjective/Events-last exam patient says he is feeling better, he has no complaints. He asks if he is having any test. Review of Systems Pulmonary: Cough Neurological: : Weakness Objective Exam Vital Signs Vital Sign - Last 12Hours 07/25/16 00:00 Temp 99.8 Pulse 69 Resp 25 B/P 146/83 Pulse Ox 96 O2 Delivery NIV Bilevel O2 Flow Rate 80.00 FiO2 80 Capillary Refill : Less Than 3 SecondsLess Than 3 Seconds General Appearance: Obese Respiratory: Decreased Breath Sounds Cardiovascular: Regular Rate, Rhythm Gastrointestinal: Non Tender Distended Extremity: Pedal Edema Neurologic/Psychiatric: Alert Normal Mood/Affect Results/Procedures Lab Laboratory Tests 07/31/16 04:37 07/31/16 04:47 Assessment/Plan Assessment and Plan Assess & Plan/Chief Complaint s/p VDRF now extubated but requiring hi-leeanna O2-feeling better Severe COPD with continued smoking 4ppd-currently curtailed H/O pneumonia 09/27-off all antibiotics H/O Volume overload 09/27-changed to by mouth Lasix Long-standing mental illness: Schizophrenia Hypertension Hyperlipidemia Pleural effusion h/o 09/27 Social issues HELENE MCKEON MD Jul 31, 2016 10:35
[2016-07-31] MEDS: ACETAMINOPHEN 325 MG TABLET/CAPLET (TYLENOL) PO PRN (13:00)
[2016-07-31] MEDS: predniSONE 20 MG TAB PO SCH (13:21)
--- NOTE | 2016-07-31 14:33 | Occupational Ther Daily Note ---
OT Current Status-Daily Note Subjective Pt seen in recliner in room, agreeable to OT. No pain mentioned Appearance Alert, cooperative Mental Status/Objective Functional [place] Measure 0=Not Assessed/NA 4=Minimal Assistance 1=Total Assistance 5=Supervision or Setup 2=Maximal Assistance 6=Modified [place] 3=Moderate Assistance 7=Complete [place] ADL-Treatment Pt agreed to sponge bath with bath pack. Able to wash and dry all body parts except back with setup, CGA when standing to wash barbara and bottom, FWW.. Pt needed skilled cues to wash each body part and to initiate except for washing face. he was able to doff and don hospital gown and take slipper socks off and put them back on. Pt did become short of breath but lips were not cyanotic. Good improvement in activity tolerance. Pt left up in recliner, all needs met. Education OT Patient Education: Progress toward Goal/Update tx plan, Purpose of tx/ functional activities OT Short Term Goals Short Term Goals 1=Demonstrate adherence to instructed precautions during ADL tasks. 2=Patient will verbalize/demonstrate understanding of assistive devices/ modifications for ADL. 3=Patient will improve strength/tolerance for activity to enable patient to perform ADL's. OT Correction Goals Correction Goals Time Frame: Aug 07, 2016 Eating (FIM): 6 Grooming(FIM): 6 Bathing(FIM): 5 Upper Body Dressing(FIM): 5 Lower Body Dressing(FIM): 5 Toileting(FIM): 5 Toilet/Commode Transfer(FIM): 5 Shower Transfer(FIM): 5 1=Demonstrate adherence to instructed precautions during ADL tasks. 2=Patient will verbalize/demonstrate understanding of assistive devices/ modifications for ADL. 3=Patient will improve strength/tolerance for activity to enable patient to perform ADL's. OT Education/Plan Problem List/Assessment Pt would benefit from skilled OT to increase his independence in basic self care to allow him to return to his home or to least restrictive environment and to decrease caregiver burden Discharge Recommendations Plan/Recommendations: Continue POC Treatment Plan/Plan of Care Patient would benefit from OT for education, treatment and training to promote independence in ADL's, mobility, safety and/or upper extremity function for ADL' s. Plan of Care: ADL Retraining, Functional Mobility, UE Funct Exercise/Act, UE Neuromus Re-Ed/Coord Treatment Duration: Aug 07, 2016 Visits Per Week: 5-6 Agreement: Yes Rehab Potential: Poor Time/GCodes Start Time: 08:45 Stop Time: 09:00 Total Time Billed (hr/min): 15 Billed Treatment Time visit, 15 minutes ADL ROCCO RAE OT Jul 31, 2016 14:33
[2016-07-31 16:00] VITALS: BP 149/77
[2016-07-31] MEDS: diphenhydrAMINE 25 MG TAB (BENADRYL) PO PRN (20:37)
[2016-07-31] MEDS: MELATONIN 3 MG TABLET PO PRN (20:37)
[2016-08-01] VITALS: BP 139/73
[2016-08-01] MEDS: RT-ALBUTEROL/IPRATROPIUM 3 ML (DUONEB) VIAL INH SCH ×6 (02:15→21:40)
[2016-08-01 04:38] LABS: BASOPHILS % (AUTO) 0 % (0-10); EOSINOPHILS # (AUTO) 0.1 10^3/uL (0.0-0.3); EOSINOPHILS % (AUTO) 1 % (0-10); LYMPHOCYTES % (AUTO) 12 % (12-44); MEAN CORPUSCULAR HEMOGLOBIN 30 PG (25-34); MEAN CORPUSCULAR HGB CONC 33 G/DL (32-36); MEAN CORPUSCULAR VOLUME 93 FL (80-99); MEAN PLATELET VOLUME 10.7 FL (7.4-10.4); MONOCYTES # (AUTO) 0.7 X 10^3 (0.0-1.0); MONOCYTES % (AUTO) 9 % (0-12); NEUTROPHILS # (AUTO) 6.3 X 10^3 (1.8-7.8); NEUTROPHILS % (AUTO) 78 % (42-75); PLATELET COUNT 169 10^3/uL (130-400); RED BLOOD COUNT 5.66 10^6/uL (4.35-5.85); RED CELL DISTRIBUTION WIDTH 14.8 % (10.0-14.5); WHITE BLOOD COUNT 8.1 10^3/uL (4.3-11.0)
[2016-08-01 04:59] LABS: ANION GAP 11 MMOL/L (5-14); BLOOD UREA NITROGEN 11 MG/DL (7-18); BUN/CREATININE RATIO 18; CALCIUM 9.3 MG/DL (8.5-10.1); CARBON DIOXIDE 30 MMOL/L (21-32); CHLORIDE 98 MMOL/L (98-107); CREATININE SERUM 0.62 MG/DL (0.60-1.30); GFR ESTIMATED > 60; GLUCOSE 92 MG/DL (70-105); MAGNESIUM 2.1 MG/DL (1.8-2.4); PHOSPHORUS 3.6 MG/DL (2.3-4.7); POTASSIUM 3.8 MMOL/L (3.6-5.0); SODIUM 139 MMOL/L (135-145)
[2016-08-01] MEDS: CATHETER FLUSH 10 ML SYR IV SCH ×3 (05:45→20:33)
[2016-08-01] MEDS: PANTOPRAZOLE 40 MG (PROTONIX) TAB PO SCH ×2 (05:45→17:25)
[2016-08-01] MEDS: RT-BUDESONIDE NEBS 0.5 MG/2ML (PULMICORT) AMP INH SCH ×2 (07:43→18:41)
[2016-08-01 08:00] VITALS: BP 124/63
[2016-08-01] MEDS: POLYETHYLENE GLYCOL 17 GM (MIRALAX) PACK PO SCH ×2 (09:00→20:33)
[2016-08-01] MEDS: FUROSEMIDE 20 MG (LASIX) TAB PO SCH (09:04)
[2016-08-01] MEDS: ACETAMINOPHEN 325 MG TABLET/CAPLET (TYLENOL) PO PRN (09:12)
--- NOTE | 2016-08-01 10:29 | Progress Note-Hospitalist ---
Subjective HPI/CC On Admission CC: Respiratory failure H[place] [facility] [place] 2300 last night to report need for transfer to higher level of care. ABG showed 7.29/79/59 and failed BiPAP so I gave orders for intubation prior to transfer. Pt on Zosyn, empirically, and maintained on vent at 580/25/15/60%. 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 Pt was seen by Dr. Hernandez. Pt is on Zosyn and steroids. Patient Interview: Physical exam stable Scribed by Harshal Shah under the direct supervision of Dr. Zavaleta. Date Seen 08/01/16 Subjective/Events-last exam patient is sitting in the chair without complaint this morning. He is in no distress. Review of Systems Pulmonary: Dyspnea Objective Exam Vital Signs Vital Sign - Last 12Hours 07/26/16 07/26/16 07/26/16 00:01 01:00 04:00 Temp 99.9 Pulse 60 Resp 16 B/P 122/57 Pulse Ox 96 O2 Delivery NIV Bilevel O2 Flow Rate 65.00 FiO2 65 Capillary Refill : Less Than 3 SecondsLess Than 3 Seconds General Appearance: No Apparent Distress Obese Neck: Limited Range of Motion Respiratory: Lungs Clear No Accessory Muscle Use No Respiratory Distress Decreased Breath Sounds Cardiovascular: Regular Rate, Rhythm No Gallop Gastrointestinal: Soft Extremity: Pedal Edema Neurologic/Psychiatric: Alert Skin: Normal Color Results/Procedures Lab Laboratory Tests 08/01/16 03:52 Assessment/Plan Assessment and Plan Assess & Plan/Chief Complaint s/p VDRF now extubated but requiring hi-leeanna O2-feeling better-discharge for early next week Severe COPD with continued smoking 4ppd-currently curtailed H/O pneumonia 09/27-off all antibiotics H/O Volume overload 09/27-changed to by mouth Lasix Long-standing mental illness: Schizophrenia Hypertension Hyperlipidemia Pleural effusion h/o 09/27 Social issues HELENE MCKEON MD Aug 01, 2016 10:29 am
[2016-08-01] MEDS: ENOXAPARIN 40 MG/0.4 ML (LOVENOX) SYR SC SCH (10:51)
[2016-08-01] MEDS: predniSONE 20 MG TAB PO SCH (14:48)
[2016-08-01 16:00] VITALS: BP 137/64
[2016-08-01] MEDS: diphenhydrAMINE 25 MG TAB (BENADRYL) PO PRN (20:33)
[2016-08-01] MEDS: MELATONIN 3 MG TABLET PO PRN (20:33)
[2016-08-02] VITALS: BP 128/72
[2016-08-02] MEDS: RT-ALBUTEROL/IPRATROPIUM 3 ML (DUONEB) VIAL INH SCH ×6 (02:09→22:16)
[2016-08-02 05:53] LABS: BASOPHILS % (AUTO) 0 % (0-10); EOSINOPHILS # (AUTO) 0.1 10^3/uL (0.0-0.3); EOSINOPHILS % (AUTO) 1 % (0-10); LYMPHOCYTES # (AUTO) 0.7 X 10^3 (1.0-4.0); LYMPHOCYTES % (AUTO) 9 % (12-44); MEAN CORPUSCULAR HEMOGLOBIN 30 PG (25-34); MEAN CORPUSCULAR HGB CONC 32 G/DL (32-36); MEAN CORPUSCULAR VOLUME 93 FL (80-99); MEAN PLATELET VOLUME 11.3 FL (7.4-10.4); MONOCYTES # (AUTO) 0.6 X 10^3 (0.0-1.0); MONOCYTES % (AUTO) 8 % (0-12); NEUTROPHILS # (AUTO) 6.8 X 10^3 (1.8-7.8); NEUTROPHILS % (AUTO) 83 % (42-75); PLATELET COUNT 180 10^3/uL (130-400); RED BLOOD COUNT 5.62 10^6/uL (4.35-5.85); WHITE BLOOD COUNT 8.2 10^3/uL (4.3-11.0)
[2016-08-02 06:08] LABS: ANION GAP 10 MMOL/L (5-14); BLOOD UREA NITROGEN 12 MG/DL (7-18); BUN/CREATININE RATIO 19; CALCIUM 9.4 MG/DL (8.5-10.1); CARBON DIOXIDE 31 MMOL/L (21-32); CHLORIDE 99 MMOL/L (98-107); CREATININE SERUM 0.64 MG/DL (0.60-1.30); GFR ESTIMATED > 60; GLUCOSE 88 MG/DL (70-105); PHOSPHORUS 3.5 MG/DL (2.3-4.7); POTASSIUM 3.8 MMOL/L (3.6-5.0); SODIUM 140 MMOL/L (135-145)
[2016-08-02] MEDS: CATHETER FLUSH 10 ML SYR IV SCH ×3 (06:29→20:17)
[2016-08-02] MEDS: PANTOPRAZOLE 40 MG (PROTONIX) TAB PO SCH ×2 (06:29→17:37)
[2016-08-02] MEDS: RT-BUDESONIDE NEBS 0.5 MG/2ML (PULMICORT) AMP INH SCH ×2 (06:30→18:34)
[2016-08-02 08:45] VITALS: BP 115/65
[2016-08-02] MEDS: POLYETHYLENE GLYCOL 17 GM (MIRALAX) PACK PO SCH ×2 (08:56→20:14)
[2016-08-02] MEDS: FUROSEMIDE 20 MG (LASIX) TAB PO SCH (08:56)
[2016-08-02] MEDS: ENOXAPARIN 40 MG/0.4 ML (LOVENOX) SYR SC SCH (10:47)
--- NOTE | 2016-08-02 11:44 | Progress Note-Hospitalist ---
Subjective HPI/CC On Admission CC: Respiratory failure H[place] [facility] [place] 2300 last night to report need for transfer to higher level of care. ABG showed 7.29/79/59 and failed BiPAP so I gave orders for intubation prior to transfer. Pt on Zosyn, empirically, and maintained on vent at 580/25/15/60%. 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 Pt was seen by Dr. Hernandez. Pt is on Zosyn and steroids. Patient Interview: Physical exam stable Scribed by Harshal Shah under the direct supervision of Dr. Zavaleta. Date Seen 08/02/16 Subjective/Events-last exam Josemanuel is without complaint. he remains on 75 percent Thermovate Review of Systems Pulmonary: Dyspnea Objective Exam Vital Signs Vital Sign - Last 12Hours 07/27/16 07/27/16 00:00 00:51 Temp 98.8 Pulse 59 Resp 23 B/P 127/74 Pulse Ox 89 O2 Delivery Vapotherm O2 Flow Rate 90.00 30.00 FiO2 75 Capillary Refill : Less Than 3 SecondsLess Than 3 Seconds General Appearance: Chronically ill Obese Respiratory: Lungs Clear Normal Breath Sounds No Accessory Muscle Use No Respiratory Distress Decreased Breath Sounds Cardiovascular: Regular Rate, Rhythm Gastrointestinal: Soft Extremity: No Pedal Edema Neurologic/Psychiatric: Alert Skin: Warm/Dry Results/Procedures Lab Laboratory Tests 08/02/16 04:09 Assessment/Plan Assessment and Plan Assess & Plan/Chief Complaint s/p VDRF now extubated but requiring hi-leeanna O2-feeling better-discharge for early this week Severe COPD with continued smoking 4ppd-currently curtailed H/O pneumonia 09/27-off all antibiotics H/O Volume overload 09/27-changed to by mouth Lasix Long-standing mental illness: Schizophrenia Hypertension Hyperlipidemia Pleural effusion h/o 09/27 Social issues HELENE MCKEON MD Aug 02, 2016 11:44 am
[2016-08-02] MEDS: ACETAMINOPHEN 325 MG TABLET/CAPLET (TYLENOL) PO PRN (13:12)
[2016-08-02] MEDS: predniSONE 20 MG TAB PO SCH (14:27)
[2016-08-02 16:46] VITALS: BP 136/73
[2016-08-02] MEDS: MELATONIN 3 MG TABLET PO PRN (20:14)
[2016-08-02] MEDS: diphenhydrAMINE 25 MG TAB (BENADRYL) PO PRN (20:14)
[2016-08-03 00:38] VITALS: BP 121/62
[2016-08-03] MEDS: RT-ALBUTEROL/IPRATROPIUM 3 ML (DUONEB) VIAL INH SCH ×6 (02:35→22:49)
[2016-08-03] MEDS: PANTOPRAZOLE 40 MG (PROTONIX) TAB PO SCH ×2 (06:07→15:08)
[2016-08-03] MEDS: CATHETER FLUSH 10 ML SYR IV SCH ×3 (06:08→21:00)
[2016-08-03 06:11] LABS: BASOPHILS % (AUTO) 0 % (0-10); EOSINOPHILS % (AUTO) 1 % (0-10); LYMPHOCYTES # (AUTO) 0.7 X 10^3 (1.0-4.0); MEAN CORPUSCULAR HEMOGLOBIN 30 PG (25-34); MEAN CORPUSCULAR HGB CONC 32 G/DL (32-36); MEAN CORPUSCULAR VOLUME 95 FL (80-99); MEAN PLATELET VOLUME 11.5 FL (7.4-10.4); MONOCYTES # (AUTO) 0.6 X 10^3 (0.0-1.0); MONOCYTES % (AUTO) 7 % (0-12); NEUTROPHILS # (AUTO) 6.9 X 10^3 (1.8-7.8); PLATELET COUNT 182 10^3/uL (130-400); RED BLOOD COUNT 5.65 10^6/uL (4.35-5.85); RED CELL DISTRIBUTION WIDTH 14.9 % (10.0-14.5); WHITE BLOOD COUNT 8.2 10^3/uL (4.3-11.0)
[2016-08-03 06:17] LABS: LYMPHOCYTES % (AUTO) 9 % (12-44); NEUTROPHILS % (AUTO) 83 % (42-75)
[2016-08-03 06:53] LABS: ANION GAP 11 MMOL/L (5-14); BLOOD UREA NITROGEN 11 MG/DL (7-18); BUN/CREATININE RATIO 16; CALCIUM 9.6 MG/DL (8.5-10.1); CARBON DIOXIDE 33 MMOL/L (21-32); CHLORIDE 97 MMOL/L (98-107); CREATININE SERUM 0.69 MG/DL (0.60-1.30); GFR ESTIMATED > 60; GLUCOSE 98 MG/DL (70-105); MAGNESIUM 2.1 MG/DL (1.8-2.4); PHOSPHORUS 3.6 MG/DL (2.3-4.7); POTASSIUM 3.9 MMOL/L (3.6-5.0); SODIUM 141 MMOL/L (135-145)
[2016-08-03] MEDS: RT-BUDESONIDE NEBS 0.5 MG/2ML (PULMICORT) AMP INH SCH ×2 (07:14→19:37)
[2016-08-03 08:00] VITALS: BP 148/84
--- NOTE | 2016-08-03 08:06 | Pulmonary Progress Note ---
Subjective Subjective/Events-last exam PT is doing about the same. He is requiring a lot of oxygen Exam Exam Vital Signs Date Time Temp Pulse Resp B/P Pulse Ox O2 Delivery O2 Flow Rate FiO2 08/03/16 07:18 93 25.00 100 08/03/16 07:12 88 15.00 75 08/03/16 02:36 92 15.00 75 08/03/16 00:38 98.4 85 20 121/62 94 15.00 08/02/16 22:16 92 15.00 75 08/02/16 21:00 Nasal Cannula 15.00 75 08/02/16 18:40 91 15.00 75 08/02/16 18:34 91 15.00 75 08/02/16 16:46 99.3 86 20 136/73 91 15.00 08/02/16 14:06 91 15.00 75 08/02/16 10:19 91 15.00 75 08/02/16 08:45 97.6 75 20 115/65 91 15.00 I & O 08/03/16 07:00 Intake Total 2610 ml Output Total 2260 ml Balance 350 ml General Appearance: No Apparent Distress, Chronically ill, Obese, Other (on ventilator) HEENT: PERRL/EOMI Neck: Normal Inspection Respiratory: Crackles, Decreased Breath Sounds, Wheezing Cardiovascular: Regular Rate, Rhythm, No Edema, No Gallop, No JVD, No Murmur Capillary Refill: Less Than 3 Seconds Extremity: Swelling Neurologic/Psychiatric: Other (sedated on ventilator) Skin: Normal Color, Warm/Dry Lymphatic: No Adenopathy Results Lab Laboratory Tests 08/02/16 04:09 08/03/16 05:24 Assessment/Plan Assessment/Plan Acute on chronic respiratory failure requiring ventilator with ARDS vs CHF -He is requiring thermaflow -SVNs duoneb and pulmicort -lasix 40mg daily bilateral infiltrates probably aspiration pneumonia Severe COPD/emphysema -SVNs -solumedrol tobacco dependance -education Obesity with probable JEN Possible discharge with hospice today. Clinical Quality Measures DVT/VTE Risk/Contraindication: Risk Factor Score Per Nursin RFS Level Per Nursing on Admit: 4+=Very High AMAIRANI LOMBARDO DO Aug 03, 2016 08:06
[2016-08-03] MEDS: POLYETHYLENE GLYCOL 17 GM (MIRALAX) PACK PO SCH ×2 (08:33→20:56)
[2016-08-03] MEDS: FUROSEMIDE 20 MG (LASIX) TAB PO SCH (08:33)
--- NOTE | 2016-08-03 09:36 | Progress Note-Hospitalist ---
Subjective HPI/CC On Admission CC: Respiratory failure HPI: Dr. Haddad at [facility] [place] called be at 2300 last night to report need for transfer to higher level of care. ABG showed 7.29/79/59 and failed BiPAP so I gave orders for intubation prior to transfer. Pt on Zosyn, empirically, and maintained on vent at 580/25/15/60%. 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 Pt was seen by Dr. Hernandez. Pt is on Zosyn and steroids. Patient Interview: Physical exam stable Scribed by Harshal Shah under the direct supervision of Dr. Zavaleta. Date Seen 08/03/16 Subjective/Events-last exam patient is 100 percent Vapotherm. He is ready to be discharged but we'll need to change him to high flow nasal cannula. He should be a hospice candidate as we really have nothing further to offer Review of Systems Neurological: : Weakness Objective Exam Vital Signs Vital Sign - Last 12Hours 07/28/16 07/28/16 00:00 02:01 Temp 98.9 Pulse 63 Resp 22 B/P 138/76 Pulse Ox 92 O2 Delivery High Flow NC O2 Flow Rate 75.00 20.00 FiO2 75 Capillary Refill : Less Than 3 SecondsLess Than 3 Seconds General Appearance: Obese Respiratory: Lungs Clear Normal Breath Sounds No Accessory Muscle Use Cardiovascular: Regular Rate, Rhythm No Gallop No Murmur Results/Procedures Lab Laboratory Tests 08/03/16 05:24 Assessment/Plan Assessment and Plan Assess & Plan/Chief Complaint s/p VDRF now extubated but requiring hi-leeanna O2-feeling better-discharge for early this week-range to nasal cannula as soon as possible. Severe COPD with continued smoking 4ppd-currently curtailed H/O pneumonia 09/27-off all antibiotics H/O Volume overload 09/27-changed to by mouth Lasix Long-standing mental illness: Schizophrenia Hypertension Hyperlipidemia Pleural effusion h/o 09/27 Social issues-remains a difficult discharge plan HELENE MCKEON MD Aug 03, 2016 09:36
--- NOTE | 2016-08-03 10:15 | Physical Therapy Daily Note ---
PT Daily Note-Current Subjective Patient agrees to PT. Pain Numeric Pain Scale: 0-No Pain Location: No Pain Reported Mental Status Patient Orientation: Person, Time Attachments: Oxygen (100% thermaflow) Transfers Functional [place] Measure 0=Not Assessed/NA 4=Minimal Assistance 1=Total Assistance 5=Supervision or Setup 2=Maximal Assistance 6=Modified [place] 3=Moderate Assistance 7=Complete IndependenceIRFPAI Quality Coding Scale 6 Independent with activity with or without an assistive device 5 Patient requires set up or clean up by helper. Patient completes activity by themselves 4 Supervision or touching assist (CGA). [place] provide cues , steadying assist 3 The helper provides less than half the effort to complete the activity 2 The helper provides more than half the effort to complete the activity 1 Dependent. The helper does all the effort to complete an activity 7 Patient refused to complete or attempt activity 9 The patient did not perform the activity before the current illness or injury 88 Not attempted due to Medical conditions or safety concerns Transfers (B, C, W/C) (FIM): 6 Scootin Sit to/from Stand: 6 Exercises Standing: Marching Standing Reps: 40 (x 3 sets) Assessment Patient is very limited with pulmonary function and does tolerates minimal activity. PT Detention Goals Detention Goals PT Detention Goals Time Frame: Jul 30, 2016 Transfers (B,C,W/C) (FIM): 4 Gait (FIM): 1 Gait distance (FIM): 1=up to 49 ft Distance: 5' Gait Level of Assist: 4 Gait Assistive Device: FWW PT Plan Treatment/Plan Treatment Plan: Continue Plan of Care Treatment Plan: Bed Mobility, Education, Functional Activity Ty, Functional Strength, Gait, Safety, Therapeutic Exercise, Transfers Treatment Duration: Aug 07, 2016 Visits Per Week: 5-6 Time/GCodes Time In: 955 Time Out: 1005 Total Billed Treatment Time: 10 Total Billed Treatment 1 visit EX 10 min LES PYLE PT Aug 03, 2016 10:15
[2016-08-03] MEDS: ENOXAPARIN 40 MG/0.4 ML (LOVENOX) SYR SC SCH (10:17)
[2016-08-03] MEDS: predniSONE 20 MG TAB PO SCH (13:35)
--- NOTE | 2016-08-03 14:06 | Occupational Ther Daily Note ---
OT Current Status-Daily Note Subjective Pt seen in room, up in recliner, agreeable to OT. No pain mentioned Mental Status/Objective Functional [place] Measure 0=Not Assessed/NA 4=Minimal Assistance 1=Total Assistance 5=Supervision or Setup 2=Maximal Assistance 6=Modified [place] 3=Moderate Assistance 7=Complete [place] ADL-Treatment pt did not want to get dressed but did agree to changing his socks and donning underwear. He was able to get pants over feet, stand without assistive device and pull pants up. he also was able to remove and don slipper socks, although became winded after one and needed a break. he did 10 reps bilat UE exercise without additional resistance, working on shoulders, elbows, forearms and hands. He started coughing during exercise but said it was not caused by the exercise. he needed a brief recovery period after coughing to resume. He was able to track reps himself. pt left up in recliner, all needs met. Education OT Patient Education: Exercise program, Modified ADL techniques Teaching Methods: Demonstration, Discussion Response to Teaching: Return Demonstration OT Short Term Goals Short Term Goals 1=Demonstrate adherence to instructed precautions during ADL tasks. 2=Patient will verbalize/demonstrate understanding of assistive devices/ modifications for ADL. 3=Patient will improve strength/tolerance for activity to enable patient to perform ADL's. OT Portfolio Director Goals Portfolio Director Goals Time Frame: Aug 07, 2016 Eating (FIM): 6 Grooming(FIM): 6 Bathing(FIM): 5 Upper Body Dressing(FIM): 5 Lower Body Dressing(FIM): 5 Toileting(FIM): 5 Toilet/Commode Transfer(FIM): 5 Shower Transfer(FIM): 5 1=Demonstrate adherence to instructed precautions during ADL tasks. 2=Patient will verbalize/demonstrate understanding of assistive devices/ modifications for ADL. 3=Patient will improve strength/tolerance for activity to enable patient to perform ADL's. OT Education/Plan Problem List/Assessment Pt would benefit from skilled OT to increase his independence in basic self care to allow him to return to his home or to least restrictive environment and to decrease caregiver burden Discharge Recommendations Plan/Recommendations: Continue POC Treatment Plan/Plan of Care Patient would benefit from OT for education, treatment and training to promote independence in ADL's, mobility, safety and/or upper extremity function for ADL' s. Plan of Care: ADL Retraining, Functional Mobility, UE Funct Exercise/Act, UE Neuromus Re-Ed/Coord Treatment Duration: Aug 07, 2016 Visits Per Week: 5-6 Agreement: Yes Rehab Potential: Poor Time/GCodes Start Time: 13:35 Stop Time: 13:50 Total Time Billed (hr/min): 15 Billed Treatment Time visit, 10 minutes ADL, 5 minutes exercise ROCCO RAE OT Aug 03, 2016 14:06
[2016-08-03 16:10] VITALS: BP 147/68
[2016-08-03] MEDS: DICYCLOMINE 10 MG (BENTYL) CAP PO PRN (17:58)
[2016-08-03] MEDS: MELATONIN 3 MG TABLET PO PRN (20:56)
[2016-08-03] MEDS: diphenhydrAMINE 25 MG TAB (BENADRYL) PO PRN (20:56)
[2016-08-03] MEDS: ACETAMINOPHEN 325 MG TABLET/CAPLET (TYLENOL) PO PRN (20:59)
[2016-08-03 22:27] VITALS: BP 138/65
[2016-08-04] VITALS: BP 136/70
[2016-08-04] MEDS: RT-ALBUTEROL/IPRATROPIUM 3 ML (DUONEB) VIAL INH SCH ×3 (02:40→10:30)
[2016-08-04 06:21] LABS: BASOPHILS % (AUTO) 0 % (0-10); EOSINOPHILS # (AUTO) 0.1 10^3/uL (0.0-0.3); EOSINOPHILS % (AUTO) 1 % (0-10); LYMPHOCYTES # (AUTO) 0.9 X 10^3 (1.0-4.0); LYMPHOCYTES % (AUTO) 12 % (12-44); MEAN CORPUSCULAR HEMOGLOBIN 30 PG (25-34); MEAN CORPUSCULAR HGB CONC 32 G/DL (32-36); MEAN CORPUSCULAR VOLUME 94 FL (80-99); MEAN PLATELET VOLUME 11.1 FL (7.4-10.4); MONOCYTES # (AUTO) 0.5 X 10^3 (0.0-1.0); MONOCYTES % (AUTO) 7 % (0-12); NEUTROPHILS # (AUTO) 6.1 X 10^3 (1.8-7.8); NEUTROPHILS % (AUTO) 81 % (42-75); PLATELET COUNT 190 10^3/uL (130-400); RED BLOOD COUNT 5.64 10^6/uL (4.35-5.85); RED CELL DISTRIBUTION WIDTH 14.9 % (10.0-14.5); WHITE BLOOD COUNT 7.6 10^3/uL (4.3-11.0)
[2016-08-04] MEDS: CATHETER FLUSH 10 ML SYR IV SCH (06:21)
[2016-08-04] MEDS: PANTOPRAZOLE 40 MG (PROTONIX) TAB PO SCH (06:21)
[2016-08-04] MEDS: RT-BUDESONIDE NEBS 0.5 MG/2ML (PULMICORT) AMP INH SCH (06:50)
[2016-08-04 06:51] LABS: ANION GAP 8 MMOL/L (5-14); BLOOD UREA NITROGEN 12 MG/DL (7-18); BUN/CREATININE RATIO 20; CALCIUM 9.7 MG/DL (8.5-10.1); CARBON DIOXIDE 35 MMOL/L (21-32); CHLORIDE 97 MMOL/L (98-107); CREATININE SERUM 0.61 MG/DL (0.60-1.30); GFR ESTIMATED > 60; GLUCOSE 101 MG/DL (70-105); PHOSPHORUS 3.4 MG/DL (2.3-4.7); POTASSIUM 3.9 MMOL/L (3.6-5.0); SODIUM 140 MMOL/L (135-145)
[2016-08-04 08:00] VITALS: BP 153/83
--- NOTE | 2016-08-04 08:59 | Pulmonary Progress Note ---
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 He wants to go home. He does not wear oxygen at home. He denies being short of breath but states he can't get his air like he used to. Exam Exam Vital Signs Date Time Temp Pulse Resp B/P Pulse Ox O2 Delivery O2 Flow Rate FiO2 08/04/16 06:50 88 15.00 08/04/16 02:40 97 15.00 08/04/16 00:00 97.6 68 19 136/70 91 High Flow NC 10.00 08/03/16 22:49 90 15.00 08/03/16 22:27 73 20 138/65 High Flow NC 15.00 08/03/16 20:30 High Flow NC 15.00 08/03/16 19:43 92 15.00 08/03/16 19:37 93 15.00 08/03/16 16:10 98.1 75 20 147/68 95 15.00 08/03/16 10:27 90 15.00 08/03/16 10:11 15.00 I & O 08/04/16 07:00 Intake Total 2320 ml Output Total 2865 ml Balance -545 ml General Appearance: No Apparent Distress WD/WN Obese HEENT: PERRL/EOMI Neck: Full Range of Motion Normal Inspection Non Tender Supple Respiratory: Chest Non Tender Lungs Clear Normal Breath Sounds No Accessory Muscle Use Cardiovascular: Regular Rate, Rhythm No Gallop No Murmur Capillary Refill: Less Than 3 Seconds Peripheral Pulses: 2+ Dorsalis Pedis (R), 2+ Left Dors-Pedis (L) Gastrointestinal: normal bowel sounds non tender soft Extremity: Normal Capillary Refill Swelling Neurologic/Psychiatric: Alert Other (sedated on ventilator) Skin: Normal Color Warm/Dry Lymphatic: No Adenopathy Results Lab Laboratory Tests 08/03/16 05:24 08/04/16 06:00 Assessment/Plan Assessment/Plan Acute on chronic respiratory failure requiring ventilator with ARDS vs CHF -He is requiring thermaflow -SVNs duoneb and pulmicort -lasix 40mg daily bilateral infiltrates probably aspiration pneumonia Severe COPD/emphysema -SVNs -solumedrol tobacco dependance -education Obesity with probable JEN Possible discharge with hospice. Clinical Quality Measures DVT/VTE Risk/Contraindication: Risk Factor Score Per Nursin RFS Level Per Nursing on Admit: 4+=Very High AMAIRANI LOMBARDO DO 08/04/16 1403: Subjective Subjective/Events-last exam PT is doing much better however still requires a lot of oxygen Exam Exam General Appearance: No Apparent Distress WD/WN Obese Neck: Full Range of Motion Normal Inspection Non Tender Respiratory: Chest Non Tender Lungs Clear Normal Breath Sounds No Accessory Muscle Use Assessment/Plan Assessment/Plan Acute on chronic respiratory failure requiring ventilator with ARDS vs CHF -He is requiring thermaflow - high flow -SVNs duoneb and pulmicort -lasix 40mg daily bilateral infiltrates probably aspiration pneumonia Severe COPD/emphysema -SVNs -solumedrol tobacco dependance -education Obesity with probable JEN Possible discharge with hospice. TRACE VENEGAS APRN Aug 04, 2016 08:59 AMAIRANI LOMBARDO DO Aug 04, 2016 14:03
[2016-08-04] MEDS: POLYETHYLENE GLYCOL 17 GM (MIRALAX) PACK PO SCH (09:21)
[2016-08-04] MEDS: ENOXAPARIN 40 MG/0.4 ML (LOVENOX) SYR SC SCH (09:21)
[2016-08-04] MEDS: FUROSEMIDE 20 MG (LASIX) TAB PO SCH (09:21)
[2016-08-04] MEDS ORDERED: CLON0.5T3 PO (09:47)
[2016-08-04] MEDS ORDERED: MORP100S3 PO (09:47)
[2016-08-04] MEDS ORDERED: PRD20T PO (09:47)
[2016-08-04] MEDS ORDERED: LORA2ORA PO (09:47)
[2016-08-04] MEDS ORDERED: IPRA3AMP INH (09:47)
--- NOTE | 2016-08-04 09:48 | Discharge Summary-Hospitalist ---
Diagnosis/Chief Complaint Date of Admission Jul 22, 2016 at 00:37 Date of Discharge Discharge Date: Aug 04, 2016 Admission Diagnosis Assessment: VDRF Day # 2 now extubated Severe COPD with continued smoking 4ppd H/O pneumonia 09/27 H/O Volume overload 09/27 Long-standing mental illness: Schizophrenia Hypertension Hyperlipidemia Pleural effusion h/o 09/27 Discharge Diagnosis Chart Review: WBC 5.0 CMP normal Patient Interview: Pt states that he feels ok. Pt states that he is breathing slightly better today. Physical exam stable. Pt reports having BMs. No fever, vital signs stable, awake Regular rate and rhythm, wheezes to auscultation trace edema lower legs Assessment: s/p VDRF now extubated but requiring hi-leeanna O2 Severe COPD with continued smoking 4ppd H/O pneumonia 09/27 H/O Volume overload 09/27 Long-standing mental illness: Schizophrenia Hypertension Hyperlipidemia Pleural effusion h/o 09/27 Social issues Plan: LTAC when accepted by insurance Maintain IV steroids but titrate down Maintain oxygen supplementation Nebulizer treatments Reason Hospital Visit/Course CC: Respiratory failure HPI: Dr. Haddad at [facility] [place] called be at 2300 last night to report need for transfer to higher level of care. ABG showed 7.29/79/59 and failed BiPAP so I gave orders for intubation prior to transfer. Pt on Zosyn, empirically, and maintained on vent at 580/25/15/60%. 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 Pt was seen by Dr. Hernandez. Pt is on Zosyn and steroids. Patient Interview: Physical exam stable Scribed by Harshal Shah under the direct supervision of Dr. Walsh. Hospital course: Patient had a lengthy hospital course he was intubated and extubated but the severity of his COPD precluded anything but a poor prognosis. He had declined so much that he was no longer a candidate for long-term care facility even though multiple attempts were made for long-term facility but due to insurance issues he was unable to be admitted to any other facility. Overall he continued to decline and overall hospice was an option and patient will be discharged home on hospice since his life will likely be much shortened due to the severe COPD. Discharge Summary Discharge Physical Examination Allergies: Coded Allergies: No Known Drug Allergies (Unverified , 09/15/10) Vitals & I&Os Vital Signs Date Time Temp Pulse Resp B/P Pulse Ox O2 Delivery O2 Flow Rate FiO2 08/04/16 08:00 97.2 93 20 153/83 93 High Flow NC 10.00 08/03/16 08:12 100 Hospital Course Labs (last 24 hrs) Laboratory Tests 08/04/16 06:00: Anion Gap 8, BUN/Creatinine Ratio 20, Basophils # (Auto) 0.0, Basophils (%) ( Auto) 0, Blood Urea Nitrogen 12, Calcium Level 9.7, Carbon Dioxide Level 35H, Chloride Level 97L, Creatinine 0.61, Eosinophils # (Auto) 0.1, Eosinophils (%) ( Auto) 1, Estimat Glomerular Filtration Rate > 60, Glucose Level 101, Hematocrit 53, Hemoglobin 16.8, Lymphocytes # (Auto) 0.9L, Lymphocytes (%) (Auto) 12, Magnesium Level 2.0, Mean Corpuscular Hemoglobin 30, Mean Corpuscular Hemoglobin Concent 32, Mean Corpuscular Volume 94, Mean Platelet Volume 11.1H, Monocytes # (Auto) 0.5, Monocytes (%) (Auto) 7, Neutrophils # (Auto) 6.1, Neutrophils (%) (Auto) 81H, Phosphorus Level 3.4, Platelet Count 190, Potassium Level 3.9, Red Blood Count 5.64, Red Cell Distribution Width 14.9H, Sodium Level 140, White Blood Count 7.6 Microbiology 07/22/16 Blood Culture - Final, Complete No growth 07/22/16 MRSA Screen - Final, Complete MRSA not isolated Pending Labs Laboratory Tests 08/04/16 06:00: Anion Gap 8, BUN/Creatinine Ratio 20, Basophils # (Auto) 0.0, Basophils (%) ( Auto) 0, Blood Urea Nitrogen 12, Calcium Level 9.7, Carbon Dioxide Level 35, Chloride Level 97, Creatinine 0.61, Eosinophils # (Auto) 0.1, Eosinophils (%) ( Auto) 1, Estimat Glomerular Filtration Rate > 60, Glucose Level 101, Hematocrit 53, Hemoglobin 16.8, Lymphocytes # (Auto) 0.9, Lymphocytes (%) (Auto) 12, Magnesium Level 2.0, Mean Corpuscular Hemoglobin 30, Mean Corpuscular Hemoglobin Concent 32, Mean Corpuscular Volume 94, Mean Platelet Volume 11.1, Monocytes # (Auto) 0.5, Monocytes (%) (Auto) 7, Neutrophils # (Auto) 6.1, Neutrophils (%) (Auto) 81, Phosphorus Level 3.4, Platelet Count 190, Potassium Level 3.9, Red Blood Count 5.64, Red Cell Distribution Width 14.9, Sodium Level 140, White Blood Count 7.6 Discharge Home Medications: Active Scripts Active Prednisone 20 Mg Tab 20 Mg PO DAILY 30 Days Lorazepam Intensol (Lorazepam) 2 Mg/1 Ml Oral.conc 1 Mg PO Q3HR Morphine Sulfate Concentrate 20mg/ml (Morphine Sulfate) 100 Mg/5 Ml Solution 5 Mg PO Q2H PRN Iprat-Albut 0.5-3(2.5) mg/3 ml (Ipratropium/Albuterol Sulfate) 3 Ml Ampul.neb 3 Ml INH RTQ2H PRN 30 Days Clonazepam 0.5 Mg Tablet 0.5 Mg PO BID PRN Reported Fluticasone Propionate 16 Gm [place].susp 1 [place] NS BID 14 Days FILLED 07/20/16 #16ML FOR A 14 DAY THERAPY Cefdinir 300 Mg Capsule 300 Mg PO BID 10 Days FILLED 07/20/16 #20 FOR A 10 DAY THERAPY Ventolin Hfa Common Canister (Albuterol Sulfate) 8.5 Gm Hfa.aer.ad 2 Puff IH Q6H PRN Amlodipine Besylate 10 Mg Tablet 10 Mg PO DAILY Diphenhydramine HCl 25 Mg Capsule 25 Mg PO HS Simvastatin 20 Mg Tablet 20 Mg PO HS Potassium Chloride 10 Meq Tablet.er 20 Meq PO HS TAKES 2 (10 MEQ) TABLETS Vitamin D3 (Cholecalciferol (Vitamin D3)) 1,000 Unit Tablet 1,000 Unit PO HS Torsemide 20 Mg Tablet 20 Mg PO DAILY Quetiapine Fumarate 200 Mg Tablet 200 Mg PO BID@1200,2100 Docusate Sodium-Senna Tablet (Sennosides/Docusate Sodium) 1 Each Tablet 1 Tab PO BID Invega Sustenna (Paliperidone Palmitate) 234 Mg/1.5 Ml Syringe 234 Mg IM MONTHLY Pantoprazole Sodium 40 Mg Tablet.dr 40 Mg PO HS Meloxicam 15 Mg Tablet 15 Mg PO HS Melatonin 3 Mg Tablet 3 Mg PO HS Tamsulosin HCl 0.4 Mg Cap.er.24h 0.4 Mg PO HS Finasteride 5 Mg Tablet 5 Mg PO HS Daliresp (Roflumilast) 500 Mcg Tablet 500 Mcg PO HS Instructions to patient/family Please see electonic discharge instructions given to patient. Clinical Quality Measures DVT/VTE Risk/Contraindication: Risk Factor Score Per Nursin RFS Level Per Nursing on Admit: 4+=Very High SILVIO WALSH DO Aug 04, 2016 09:48
[2016-08-04 13:45] VITALS: BP 153/83
== END 2016-08-04 13:45 | disposition hospice, home (50) | DRG 208 ==
LOC: ICU 07-22 00:37 → 4TH 07-27 16:50
PROVIDERS: ADMIT Internal Medicine; ATTEND Internal Medicine
PROC: 5A1945Z Respiratory Ventilation, 24-96 Consecutive Hours (ICD-10-PCS; principal; 2016-07-22)
DX: J96.20 Acute and chronic respiratory failure, unspecified whether with hypoxia or hypercapnia (principal); J44.0 Chronic obstructive pulmonary disease with (acute) lower respiratory infection; J18.9 Pneumonia, unspecified organism; I50.9 Heart failure, unspecified; I11.0 Hypertensive heart disease with heart failure; F17.210 Nicotine dependence, cigarettes, uncomplicated; E78.5 Hyperlipidemia, unspecified; N40.0 Benign prostatic hyperplasia without lower urinary tract symptoms; F70 Mild intellectual disabilities; F20.9 Schizophrenia, unspecified; E66.9 Obesity, unspecified; Z68.39 Body mass index [BMI] 39.0-39.9, adult; Z23 Encounter for immunization
CPT/HCPCS: 36415; 71010; 71020; 80048; 80202; 81000; 82805; 82962; 83605; 83735; 83880; 84100; 85007; 85025; 85027; 87040; 87070; 87077; 87081; 87186; 87205; 94002; 94003; 94640; 94660; 94664; 94760; 94799

== ENCOUNTER 2017-03-23 14:57 | Emergency (ER) | payer MEDICAID ==
[~2017-03-23] VITALS: Ht 180.3 cm; Wt 140.8 kg
[~2017-03-23 14:57] MED LIST changes: +CEFD300C3 PO; +FLUT16SP22 NS; -GUAI600T59 PO; +GUAI600T86 PO; +IPRA3AMP INH; +LORA2ORA PO; +MORP100S3 PO; +PRD20T PO; +RT-ALBUTEROL/IPRATROPIUM 3 ML (DUONEB) VIAL ONE
[2017-03-23] MEDS ORDERED: RT-ALBUTEROL SULF 2.5 MG/3 ML PRE-MIX VIAL INH STA (15:07)
[2017-03-23 15:09] VITALS: BP 133/76
[2017-03-23] MEDS ORDERED: RT-IPRATROPIUM (ATROVENT) 0.5MG/2.5ML AMP IH ONE (15:15)
[2017-03-23] MEDS ORDERED: RT-ALBUTEROL/IPRATROPIUM 3 ML (DUONEB) VIAL INH ONE ×2 (15:15→15:30)
[2017-03-23] MEDS ORDERED: methylPREDNISolone 125 MG (Solu-MEDROL) VIAL IVP ONE (15:15)
[2017-03-23 15:24] LABS: BASOPHILS % (AUTO) 0 % (0-10); EOSINOPHILS # (AUTO) 0.2 10^3/uL (0.0-0.3); EOSINOPHILS % (AUTO) 2 % (0-10); LYMPHOCYTES # (AUTO) 1.4 X 10^3 (1.0-4.0); LYMPHOCYTES % (AUTO) 16 % (12-44); MEAN CORPUSCULAR HEMOGLOBIN 31 PG (25-34); MEAN CORPUSCULAR HGB CONC 32 G/DL (32-36); MEAN CORPUSCULAR VOLUME 99 FL (80-99); MEAN PLATELET VOLUME 10.1 FL (7.4-10.4); MONOCYTES # (AUTO) 0.7 X 10^3 (0.0-1.0); MONOCYTES % (AUTO) 7 % (0-12); NEUTROPHILS # (AUTO) 6.9 X 10^3 (1.8-7.8); NEUTROPHILS % (AUTO) 75 % (42-75); PLATELET COUNT 219 10^3/uL (130-400); RED BLOOD COUNT 4.94 10^6/uL (4.35-5.85); RED CELL DISTRIBUTION WIDTH 15.3 % (10.0-14.5); WHITE BLOOD COUNT 9.2 10^3/uL (4.3-11.0)
[2017-03-23 15:27] VITALS: BP 138/76
[2017-03-23] MEDS ORDERED: RT-ALBUTEROL SULF 2.5 MG/3 ML PRE-MIX VIAL IH SCH (15:30)
[2017-03-23 15:32] LABS: ABG BASE EXCESS 10.4 MMOL/L (-2.5-2.5); ABG HCO3 37 MMOL/L (23-27); ABG OXYGEN SATURATION 92 % (94-100); ABG PO2 63 MMHG (79-93); ABG TCO2 39.9 MMOL/L (21.0-31.0)
[2017-03-23 15:34] LABS: INR 0.9 (0.8-1.4); PROTHROMBIN TIME PATIENT 11.7 SEC (12.2-14.7)
[2017-03-23 15:36] LABS: ABG PH 7.28 (7.37-7.43)
--- NOTE | 2017-03-23 15:36 | Diagnostic Imaging Report ---
EXAM: Portable supine radiograph of the chest. INDICATION: Hypoxia. FINDINGS: There are patchy bibasilar infiltrates. The heart size is mildly enlarged. No effusion or pneumothorax. The mediastinum and jeanna appear unremarkable. IMPRESSION: Patchy bibasilar infiltrates. Dictated by: Dictated on workstation # [id number]
[2017-03-23 15:37] LABS: ABG PCO2 82 MMHG (35-45)
[2017-03-23 15:38] LABS: ALLENS TEST YES-POS
[2017-03-23 15:39] LABS: PATIENT TEMP 97.6
[2017-03-23 15:42] LABS: ALANINE AMINOTRANSFERASE 24 U/L (0-55); ALBUMIN 4.1 GM/DL (3.2-4.5); ANION GAP 7 MMOL/L (5-14); ASPARTATE AMINO TRANSFERASE 17 U/L (5-34); BILIRUBIN,TOTAL 0.3 MG/DL (0.1-1.0); BLOOD UREA NITROGEN 7 MG/DL (7-18); BUN/CREATININE RATIO 9; CARBON DIOXIDE 35 MMOL/L (21-32); CHLORIDE 88 MMOL/L (98-107); CREATININE SERUM 0.75 MG/DL (0.60-1.30); GFR ESTIMATED > 60; GLUCOSE 109 MG/DL (70-105); SODIUM 130 MMOL/L (135-145); TOTAL PROTEIN 7.7 GM/DL (6.4-8.2); hs C REACTIVE PROTEIN 1.65 MG/DL (0.00-0.50)
[2017-03-23 15:48] LABS: TROPONIN I < 0.30 NG/ML (<0.30)
--- NOTE | 2017-03-23 15:50 | ED General ---
General Chief Complaint: Respiratory Problems Stated Complaint: OXYGEN LOW Nursing Triage Note: PT TO ROOM 7 FROM TRIAGE, PT IN RESP DISTRESS, PT VERY DUSKY, O2 ON PER N/C PER PORTABLE O2, SAT 50%. PT SENT FROM DR ROSS OFFICE MANPREETBeatriz BRAUN BY PVT VEHICLE. Nursing Sepsis Screen: No Definite Risk Source of Information: Patient, Caregiver, Old Records Exam Limitations: No Limitations History of Present Illness Time Seen by Provider: 15:00 Initial Comments This 61-year-old gentleman with severe COPD and developmental disabilities presents to the emergency room as directed from Dr. Jaimes's office. He is accompanied by his case briefer. Patient was found to be severely hypoxic at Dr. Jaimes's clinic with oxygen saturations in the 60s per case briefer's report. He arrives by private vehicle cyanotic and with an oxygen saturation of 50 percent. His case briefer reports he is constantly ill with chronic cough and shortness of breath. There has been no other acute change in his care recently according to the case briefer. Review of his chart notes that he has COPD, continues to smoke, and has a history of respiratory failure. He is under the care of Dr. Hernandez as well. Allergies and Home Medications Allergies Coded Allergies: No Known Drug Allergies (Unverified , 09/15/10) Home Medications Albuterol Sulfate 8.5 Gm Hfa.aer.ad, 2 PUFF IH Q6H PRN for SHORTNESS OF BREATH, (Reported) Amlodipine Besylate 10 Mg Tablet, 10 MG PO DAILY, (Reported) Cholecalciferol (Vitamin D3) 1,000 Unit Tablet, 1,000 UNIT PO HS, (Reported) Clonazepam 0.5 Mg Tablet, 0.5 MG PO BID PRN for ANXIETY, #30 Prescribed by: SILVIO WALSH on 08/04/16 0947 Diphenhydramine HCl 25 Mg Capsule, 25 MG PO HS, (Reported) Finasteride 5 Mg Tablet, 5 MG PO HS, (Reported) Fluticasone Propionate 16 Gm Philo.susp, 1 SPRAY NS BID for 14 Days, (Reported) FILLED 07/20/16 #16ML FOR A 14 DAY THERAPY Ipratropium/Albuterol Sulfate 3 Ml Ampul.neb, 3 ML INH RTQ2H PRN for SOA for 30 Days Prescribed by: SILVIO WALSH on 08/04/16946 Lorazepam 2 Mg/1 Ml Oral.conc, 1 MG PO Q3HR, #30 Prescribed by: SILVIO WALSH on 08/04/16 0947 Melatonin 3 Mg Tablet, 3 MG PO HS, (Reported) Meloxicam 15 Mg Tablet, 15 MG PO HS, (Reported) Morphine Sulfate 100 Mg/5 Ml Solution, 5 MG PO Q2H PRN for PAIN, #30 Prescribed by: SILVIO WALSH on 08/04/16 0947 Paliperidone Palmitate 234 Mg/1.5 Ml Syringe, 234 MG IM MONTHLY, (Reported) Pantoprazole Sodium 40 Mg Tablet.dr, 40 MG PO HS, (Reported) Potassium Chloride 10 Meq Tablet.er, 20 MEQ PO HS, (Reported) TAKES 2 (10 MEQ) TABLETS Prednisone 20 Mg Tab, 20 MG PO DAILY for 30 Days Prescribed by: SILVIO WALSH on 08/04/16 0947 Quetiapine Fumarate 200 Mg Tablet, 200 MG PO BID@1200,2100, (Reported) Roflumilast 500 Mcg Tablet, 500 MCG PO HS, (Reported) Sennosides/Docusate Sodium 1 Each Tablet, 1 TAB PO BID, (Reported) Simvastatin 20 Mg Tablet, 20 MG PO HS, (Reported) Tamsulosin HCl 0.4 Mg Cap.er.24h, 0.4 MG PO HS, (Reported) Torsemide 20 Mg Tablet, 20 MG PO DAILY, (Reported) Constitutional: see HPI, No fever EENTM: no symptoms reported Respiratory: see HPI Cardiovascular: no symptoms reported Gastrointestinal: no symptoms reported Genitourinary: no symptoms reported Musculoskeletal: no symptoms reported Skin: no symptoms reported Psychiatric/Neurological: See HPI Hematologic/Lymphatic: No Symptoms Reported Immunological/Allergic: no symptoms reported Past Drksfnv-Avrdbo-Amujyf Hx Patient Social History Alcohol Use: Denies Use Recreational Drug Use: No Smoking Status: Current Everyday Smoker Type Used: Cigarettes Recent Foreign Travel: No Contact w/Someone Who Travel: No Recent Infectious Disease Expo: No Recent Hopitalizations: No Physical Abuse: No Sexual Abuse: No Immunizations Up To Date Date of Pneumonia Vaccine: Mar 14, 2009 Seasonal Allergies Seasonal Allergies: No (UNABLE TO OBTAIN - PT INTUBATED/SEDATED) Surgeries History of Surgeries: No Respiratory History of Respiratory Disorde: Yes (COPD, tobaccoism, history of respiratory failure) Respiratory Disorders: COPD Cardiovascular History of Cardiac Disorders: Yes Cardiac Disorders: High Cholesterol, Hypertension Neurological History of Neurological Disord: Yes Neurological Disorders: Developmental Disorder Genitourinary History of Genitourinary Disor: Yes Genitourinary Disorders: Benign Prostatic Hyperpl Gastrointestinal History of Gastrointestinal Di: No Musculoskeletal History of Musculoskeletal Dis: No Endocrine History of Endocrine Disorders: No Cancer History of Cancer: No Psychosocial History of Psychiatric Problem: Yes (MILD MR) Behavioral Health Disorders: Anxiety, Bipolar, Schizophrenia, Violent Behavior Suicide Risk Score: 0 Integumentary History of Skin or Integumenta: No Physical Exam Vital Signs Vital Sign - Last 12Hours 03/23/17 14:57 Temp 97.6 Pulse 81 Resp 17 B/P (MAP) 133/76 Pulse Ox 89 O2 Delivery OxyMask O2 Flow Rate 10.00 Capillary Refill : Less Than 3 Seconds General Appearance: WD/WN, Moderate Distress (respiratory) HEENT: PERRL/EOMI, Other (protruding tongue and lower lip) Neck: Normal Inspection Respiratory: Decreased Breath Sounds (severely decreased air movement and breath sounds), Wheezing Cardiovascular: Regular Rate, Rhythm, No Murmur Gastrointestinal: Non Tender, Soft Extremity: Normal Inspection, No Pedal Edema Neurologic/Psychiatric: Alert, No Motor/Sensory Deficits, Normal Mood/Affect Skin: Normal Color, Warm/Dry Focused Exam Evaluation Lactate Level Laboratory Tests 03/23/17 15:05: Lactic Acid Level 1.34 Lactic Acid Level Laboratory Tests Test 03/23/17 15:05 Lactic Acid Level 1.34 MMOL/L (0.50-2.00) Date of ETT Placement: Jul 21, 2016 Progress/Results/Core Measures Results/Orders Lab Results Laboratory Tests Test 03/23/17 15:05 03/23/17 16:04 Range/Units White Blood Count 9.2 4.3-11.0 10^3/uL Red Blood Count 4.94 4.35-5.85 10^6/uL Hemoglobin 15.5 13.3-17.7 G/DL Hematocrit 49 40-54 % Mean Corpuscular Volume 99 80-99 FL Mean Corpuscular Hemoglobin 31 25-34 PG Mean Corpuscular Hemoglobin Concent 32 32-36 G/DL Red Cell Distribution Width 15.3 H 10.0-14.5 % Platelet Count 219 130-400 10^3/uL Mean Platelet Volume 10.1 7.4-10.4 FL Neutrophils (%) (Auto) 75 42-75 % Lymphocytes (%) (Auto) 16 12-44 % Monocytes (%) (Auto) 7 0-12 % Eosinophils (%) (Auto) 2 0-10 % Basophils (%) (Auto) 0 0-10 % Neutrophils # (Auto) 6.9 1.8-7.8 X 10^3 Lymphocytes # (Auto) 1.4 1.0-4.0 X 10^3 Monocytes # (Auto) 0.7 0.0-1.0 X 10^3 Eosinophils # (Auto) 0.2 0.0-0.3 10^3/uL Basophils # (Auto) 0.0 0.0-0.1 10^3/uL Prothrombin Time 11.7 L 12.2-14.7 SEC INR Comment 0.9 0.8-1.4 Activated Partial Thromboplast Time 27 24-35 SEC Blood Gas Puncture Site L RAD RT RAD Blood Gas Patient Temperature 97.6 98.1 Arterial Blood pH 7.28 *L 7.26 *L 7.37-7.43 Arterial Blood Partial Pressure CO2 82 *H 90 *H 35-45 MMHG Arterial Blood Partial Pressure O2 63 L 87 79-93 MMHG Arterial Blood HCO3 37 H 39 H 23-27 MMOL/L Arterial Blood Total CO2 39.9 H 41.8 H 21.0-31.0 MMOL/L Arterial Blood Oxygen Saturation 92 L 96 94-100 % Arterial Blood Base Excess 10.4 H 11.8 H -2.5-2.5 MMOL/L Carliots Test YES-POS YES-POS Blood Gas Ventilator Setting NO YES Blood Gas Inspired Oxygen 70% BIPAP 70% Sodium Level 130 L 135-145 MMOL/L Potassium Level 5.0 3.6-5.0 MMOL/L Chloride Level 88 L 98-107 MMOL/L Carbon Dioxide Level 35 H 21-32 MMOL/L Anion Gap 7 5-14 MMOL/L Blood Urea Nitrogen 7 7-18 MG/DL Creatinine 0.75 0.60-1.30 MG/DL Estimat Glomerular Filtration Rate > 60 BUN/Creatinine Ratio 9 Glucose Level 109 H 70-105 MG/DL Lactic Acid Level 1.34 0.50-2.00 MMOL/L Calcium Level 10.0 8.5-10.1 MG/DL Total Bilirubin 0.3 0.1-1.0 MG/DL Aspartate Amino Transf (AST/SGOT) 17 5-34 U/L Alanine Aminotransferase (ALT/SGPT) 24 0-55 U/L Alkaline Phosphatase 92 40-136 U/L Troponin I < 0.30 <0.30 NG/ML C-Reactive Protein High Sensitivity 1.65 H 0.00-0.50 MG/DL B-Type Natriuretic Peptide 22.6 <100.0 PG/ML Total Protein 7.7 6.4-8.2 GM/DL Albumin 4.1 3.2-4.5 GM/DL Micro Results Microbiology 03/23/17 Influenza Types A,B Antigen (DOROTHY) - Final, Complete My Orders Orders - YONI MOLINA MD Albuterol/Ipra Inhalation Soln (Duoneb I (03/23/17 14:55) Cbc With Automated Diff (03/23/17:) Comprehensive Metabolic Panel (03/23/17:) Lactic Acid Analyzer (03/23/17:) Blood Culture (03/23/17:) Protime With Inr (03/23/17:) Partial Thromboplastin Time (03/23/17:03) Chest 1 View, Ap/Pa Only (03/23/17:) O2 (03/23/17:03) Saline Lock/Iv-Start (03/23/17:) Saline Lock/Iv-Start (03/23/17 15:03) Vital Signs Adult Sepsis Patie Q1HR (03/23/17 15:03) Remove Rings In Anticipation O (03/23/17 15:03) Albuterol/Ipra Inhalation Soln (Duoneb I (03/23/17 15:15) Svn Sm Volume Nebulizer Rt-Rfs (03/23/17 15:03) BNP (03/23/17 15:04) Hs C Reactive Protein (03/23/17 15:04) Influenza A And B Antigens (03/23/17 15:04) Troponin I (03/23/17 15:04) Ekg Tracing (03/23/17 15:04) Monitor-Rhythm Ecg Trace Only (03/23/17 15:04) Arterial Blood Gas (03/23/17 15:05) Methylprednisolone Sod Succ (Solu-Medrol (03/23/17 15:15) Albuterol Pre-Mix Nebs (Rt) (Proventil P (03/23/17 15:07) Ipratropium 0.02% Neb Solution (Atrovent (03/23/17 15:15) Svn Sm Volume Nebulizer Rt-Rfs (03/23/17 15:07) Svn Sm Volume Nebulizer Rt-Rfs (03/23/17 15:07) Albuterol Pre-Mix Nebs (Rt) (Proventil P (03/23/17 15:30) Albuterol/Ipra Inhalation Soln (Duoneb I (03/23/17 15:30) Svn Sm Volume Nebulizer Rt-Rfs (03/23/17 15:21) Arterial Blood Gas (03/23/17 16:04) Piperacillin Sodium/Tazobactam (Zosyn Vi (03/23/17 16:00) Medications Given in ED Current Medications Medications Dose Ordered Sig/Bonnie Route Start Time Stop Time Status Last Admin Dose Admin Albuterol/ Ipratropium 3 ml ONCE ONCE INH 03/23/17 15:15 03/23/17 15:16 DC 03/23/17 15:08 3 ML Ipratropium [place] 0.5 mg ONCE ONCE IH 03/23/17 15:15 03/23/17 15:16 DC 03/23/17 15:26 0.5 MG Methylprednisolone Sodium Succinate 125 mg ONCE ONCE IVP 03/23/17 15:15 03/23/17 15:16 DC 03/23/17 15:20 125 MG Vital Signs/I&O Vital Sign - Last 12Hours 03/23/17 03/23/17 03/23/17 03/23/17 14:57 14:57 15:09 15:27 Temp 97.6 Pulse 81 84 80 Resp 17 20 27 B/P (MAP) 133/76 Pulse Ox 89 50 96 98 O2 Delivery OxyMask Nasal Cannula O2 Flow Rate 10.00 2.00 70.00 70.00 03/23/17 03/23/17 16:52 17:35 Pulse 89 93 Resp 24 24 Pulse Ox 94 94 O2 Delivery OxyMask O2 Flow Rate 70.00 Blood Pressure Mean: 95 Progress Note #1: Time: 16:47 Progress Note When patient was brought to the emergency room, the case briefer did not know his CODE STATUS. Aggressive measures were taken to treat his respiratory failure. Patient was placed on BiPAP with a DuoNeb treatment followed by an hour-long treatment. Solu-Medrol 125 mg was administered. Patient did rebound and his respiratory status stabilized on BiPAP. X-ray showed suggestion of pneumonia although there was no leukocytosis or fever and x-ray was relatively unchanged from prior. Case was reviewed with Dr. Hernandez at 16:00. At that time it was revealed to me that patient was enrolled in hospice. Representatives from [facility] then also arrived to the emergency room. Consultation was sought with [facility] with palliative care. A plan was developed to admit the patient GIP status and continue with hospice care. BiPAP will be continued for comfort but no other aggressive measures including antibiotics or steroids will be administered. All parties involved are in agreement with this plan. I was eventually able to contact patient's brother, Ronak Bingham, at 16:40. He is on his way to the hospital and is in agreement with the plan. He should be to the hospital in about an hour. Ronak requested to keep Rafael on BiPAP if needed until he can become directly involved in his case. Progress Note #2: Time: 18:43 Progress Note After patient's brother arrived at the hospital, we proceeded to discuss plans. After lengthy discussion amongst patient, patient's brother Ronak, Dr. Hinds , and myself, it was decided that patient will return home and continue care with hospice there. When patient's brother directly asked the patient if those are his wishes, he confirmed. Patient and brother are both well aware that life expectancy could range from minutes to weeks once removed from BiPAP. They are accepting of this. Transportation home was arranged through [facility]. Arrangements were made for hospice to meet them at the home upon arrival. Patient departed the emergency room at 18:40 back into the care of his brother and hospice. At least 45 minutes was dedicated directly to communication with hospice, consults, dispatch, and patient's family to determine disposition and arrange for transfer. ECG Initial ECG Impression Date: Mar 23, 2017 Initial ECG Impression Time: 15:31 Initial ECG Rate: 82 Initial ECG Rhythm: Normal Sinus Comment Sinus rhythm with no ST elevation or depression. No abnormal intervals or axis deviation. Incomplete right bundle branch block. Diagnostic Imaging Diagonstic Imaging: Xray Plain Films/CT/US/NM/MRI: chest Comments Chest x-ray viewed by me and report reviewed. See report below: NAME: RAFAEL [facility] REC#: [id number] PT STATUS: REG ER : 1955 PHYSICIAN: YONI MOLINA MD ADMIT DATE: 03/23/17/ER Signed Date of Exam: 03/23/17 CHEST 1 VIEW, AP/PA ONLY EXAM: Portable supine radiograph of the chest. INDICATION: Hypoxia. FINDINGS: There are patchy bibasilar infiltrates. The heart size is mildly enlarged. No effusion or pneumothorax. The mediastinum and jeanna appear unremarkable. IMPRESSION: Patchy bibasilar infiltrates. Dictated by: Dictated on workstation # [id number] Dict: 03/23/17 1529 Trans: 03/23/17 1539 Interpreted by: TITUS SINCLAIR MD Electronically signed by: TITUS SINCLAIR MD 03/23/17 1539 Departure Impression Impression: Primary Impression: Respiratory failure Qualified Codes: J96.21 - Acute and chronic respiratory failure with hypoxia; J96.22 - Acute and chronic respiratory failure with hypercapnia Additional Impressions: COPD exacerbation Pneumonia of both lower lobes Qualified Codes: J18.9 - Pneumonia, unspecified organism Disposition: 01 HOME, SELF-CARE Condition: Improved Departure-Patient Inst. Decision time for Depature: 18:00 Referrals: SONALI JAIMES MD (PCP/Family) Primary Care Physician Patient Instructions: NO INSTRUCTIONS GIVEN Add. Discharge Instructions: Follow instructions per hospice. If Rafael's condition worsens, please call hospice instead of 911. All discharge instructions reviewed with patient and/or family. Voiced understanding. Copy Copies To 1: SONALI JAIMES MD Copies To 2: AMAIRANI HERNANDEZ JOSHUA T MD Mar 23, 2017 15:50
[2017-03-23] MEDS ORDERED: PIPERACILLIN SODIUM/TAZOBACTAM 4.5 GM in NS (IVPB) 100 ML IV ONE (16:00)
[2017-03-23 16:29] LABS: ABG BASE EXCESS 11.8 MMOL/L (-2.5-2.5); ABG HCO3 39 MMOL/L (23-27); ABG OXYGEN SATURATION 96 % (94-100); ABG PO2 87 MMHG (79-93); ABG TCO2 41.8 MMOL/L (21.0-31.0)
[2017-03-23 16:30] LABS: ABG PH 7.26 (7.37-7.43)
[2017-03-23 16:31] LABS: ABG PCO2 90 MMHG (35-45); ALLENS TEST YES-POS; PATIENT TEMP 98.1
[2017-03-23 18:29] VITALS: BP 136/86
== END 2017-03-23 18:30 | disposition other institution (70) ==
LOC: EDUNIT# 14:57 → ER 15:00 → 4TH 17:12 → UNDOADMIN 17:12 → ER 18:30
DX: J96.90 Respiratory failure, unspecified, unspecified whether with hypoxia or hypercapnia (principal); J44.1 Chronic obstructive pulmonary disease with (acute) exacerbation; J18.1 Lobar pneumonia, unspecified organism; F41.9 Anxiety disorder, unspecified; F31.9 Bipolar disorder, unspecified; F20.9 Schizophrenia, unspecified; E78.00 Pure hypercholesterolemia, unspecified; I10 Essential (primary) hypertension; F17.210 Nicotine dependence, cigarettes, uncomplicated; Z99.11 Dependence on respirator [ventilator] status
CPT/HCPCS: 36415; 71010; 80053; 82805; 83605; 83880; 84484; 85025; 85610; 85730; 86141; 87040; 87804; 93005; 93041; 94640